=== PATIENT | male | born 1945 | race Caucasian/White ===

== ENCOUNTER 2016-06-16 09:11 | Inpatient (IN) | payer OTHER, MEDICARE ==
[~2016-06-16] VITALS: Ht 180.3 cm; Wt 103.0 kg
[2016-06-16] VITALS (12 sets, daily range): BP systolic 106–140; BP diastolic 52–74; PULSE 103–127; RESP 15–22; TEMP 98.9–102.8; O2SAT 95–100
[~2016-06-16 09:11] MED LIST: ASPI325T PO; GABA300C3 PO; GARL500C5 PO; GLUC1CAP14 PO; ICAPCAP; KETO2%T TOP; OMEGCAP19 PO; OMEP20TA39 PO; SENN1TAB11 PO; VITA10002 PO; VITA100T55 PO; ZOCO40TA PO; ZOVI200C24 PO
[2016-06-16] MEDS ORDERED: VANCOMYCIN INJ 1,000 MG in SODIUM CHLOR 0.9% 250 ML INJ 250 ML IV STA (09:24)
[2016-06-16] MEDS ORDERED: PIPERACIL-TAZO 4.5 GM PREMIX 100 ML IV STA (09:24)
[2016-06-16] MEDS ORDERED: SODIUM CHLOR 0.9% 1000 ML INJ 1,000 ML IV ONE ×2 (09:30→12:00)
--- NOTE | 2016-06-16 09:42 | PD ---
HPI Chief Complaint: Fever Time Seen by Provider: 09:20 Travel History International Travel<30 days: No Contact w/Intl Traveler<30days: No Traveled to known affect area: No History of Present Illness HPI 70-year-old male with history of bladder cancer currently undergoing chemotherapy, last 2 days ago, at [facility] under Dr. العلي here with complaint of fever. Patient states he felt fine throughout his chemotherapy. He awoke this morning at 3 AM with rigors and a temperature of 103.1. Patient denies any localizing symptoms. No nausea, vomiting, abdominal pain, sore throat, runny nose, cough, urinary symptoms. Patient took 1000 mg of Tylenol for fever and body aches and presented to the ED under instruction from his oncologist this morning. PFSH Past Medical History Blood Disorders: No Heart Rhythm Problems: Yes (extra heart beat ) Cancer: No Cardiovascular Problems: Yes High Cholesterol: Yes Chest Pain: No Congestive Heart Failure: No Diabetes: Yes (watch diet ) Diminished Hearing: No Endocrine: Yes Genitourinary: No Neurologic: Yes (tia 2003 ) Psychiatric: No Respiratory: No Thyroid Disease: No Past Surgical History Body Medical Devices: titanum in neck, 5 inplants in teeth Cardiac Surgery: Yes (tia times three) Tonsillectomy: Yes Other Surgery: Yes (CERVICAL FUSION C4-5-6, "QUAD HERNIA") Family History Family Hypercholesterolemia: Yes Social History Alcohol Use: No (QUIT 1990) Tobacco Use: No (QUIT 1999 ) Substance Use: No Allergies-Medications (Allergen,Severity, Reaction): Coded Allergies: Sulfa (Verified Allergy, Severe, RASH/HIVES/ITCHING, 06/16/16) Lortab (Verified Allergy, Mild, THROWS UP, 06/16/16) Oxycodone (Verified Allergy, Mild, THROWS UP, 06/16/16) Reported Meds & Prescriptions Reported Meds & Active Scripts Active Reported [Vit Code Mens] 2 Tab PO BID Curcumin (Turmeric (Curcuma Longa) (Bulk) 1 Pow Pow 2,706 Mg PO BID Cod Liver Oil 1,000 Mg Cap 1,000 Mg PO BID Ferrous Sulfate 325 Mg Tab 650 Mg PO DAILY Pyridoxine (Pyridoxine HCl) 100 Mg Tab 100 Mg PO HS Omeprazole 20 Mg Cap 20 Mg PO DAILY [place] 3-6-9 Complex ([place]ard 3 Fatty Acids-[place]ard 6 FA) 1 Cap Cap 2 Cap PO BID Glucosamine Chondroitin & [phone] mg (Zrqgsyrpacq-Xixtvzexqvq-Mj Cho) 1 Tab Tab 2 Tab PO BID Gabapentin 600 Mg Tab 1,200 Mg PO TID Aung [place] 450 Mg Cap 450 Mg PO HS [Vitamin B -12 [place]] 1,000 Mg PO DAILY Acyclovir 400 Mg Tab 400 Mg PO BID Review of Systems Except as stated in HPI: all other systems reviewed are Neg Physical Exam Narrative GENERAL: Well-appearing male in no acute distress SKIN: Warm and dry. HEAD: Normocephalic. EYES: No scleral icterus. No injection or drainage. ENT: Mucous membranes pink and moist. NECK: Supple CARDIOVASCULAR: Tachycardic with heart rate in the 100s, regular rhythm. No murmur appreciated. RESPIRATORY: No accessory muscle use. Clear to auscultation. Breath sounds equal bilaterally. GASTROINTESTINAL: Abdomen soft, non-tender, nondistended. No CVA tenderness MUSCULOSKELETAL: No edema. NEUROLOGICAL: Awake and alert. Normal gait. Normal speech. PSYCHIATRIC: Appropriate mood and affect; insight and judgment normal. Data Data Last Documented VS Vital Signs Date Time Temp Pulse Resp B/P Pulse Ox O2 Delivery O2 Flow Rate FiO2 06/16/16 10:00 99.6 115 15 110/63 96 Room Air Orders Electrocardiogram (06/16/16 09:24) Complete Blood Count With Diff (06/16/16 09:24) Comprehensive Metabolic Panel (06/16/16 09:24) Lactic Acid Sepsis Protocol (06/16/16 09:24) Lipase (06/16/16 09:24) Urinalysis - C+S If Indicated (06/16/16 09:24) Influenzae A/B Antigen (06/16/16 09:24) Blood Culture (06/16/16 09:24) Chest, Single Ap (06/16/16 09:24) Ecg Monitoring (06/16/16 09:24) Iv Access Insert/Monitor (06/16/16 09:24) Oximetry (06/16/16 09:24) Vancomycin Inj (Vancomycin Inj) (06/16/16 09:24) Piperacil-Tazo 4.5 Gm Premix (Zosyn 4.5 (06/16/16 09:24) Sodium Chlor 0.9% 1000 Ml Inj (Ns 1000 M (06/16/16 09:30) Urine Culture (06/16/16 09:40) Labs Laboratory Tests Test 06/16/16 09:40 White Blood Count 2.5 TH/MM3 Red Blood Count 3.51 MIL/MM3 Hemoglobin 9.8 GM/DL Hematocrit 28.7 % Mean Corpuscular Volume 81.8 FL Mean Corpuscular Hemoglobin 27.9 PG Mean Corpuscular Hemoglobin 34.1 % Concent Red Cell Distribution Width 18.7 % Platelet Count 442 TH/MM3 Mean Platelet Volume 6.9 FL Neutrophils (%) (Auto) 61.2 % Lymphocytes (%) (Auto) 21.8 % Monocytes (%) (Auto) 16.7 % Eosinophils (%) (Auto) 0.2 % Basophils (%) (Auto) 0.1 % Neutrophils # (Auto) 1.5 TH/MM3 Lymphocytes # (Auto) 0.5 TH/MM3 Monocytes # (Auto) 0.4 TH/MM3 Eosinophils # (Auto) 0.0 TH/MM3 Basophils # (Auto) 0.0 TH/MM3 CBC Comment DIFF FINAL Differential Comment Urine Color LIGHT-YELLOW Urine Turbidity HAZY Urine pH 6.0 Urine Specific [place] 1.010 Urine Protein 30 mg/dL Urine Glucose (UA) NEG mg/dL Urine Ketones NEG mg/dL Urine Occult Blood SMALL Urine Nitrite NEG Urine Bilirubin NEG Urine Urobilinogen LESS THAN 2.0 MG/DL Urine Leukocyte Esterase LARGE Urine RBC 14 /hpf Urine WBC 180 /hpf Urine Renal Epithelial Cells 1 /hpf Urine Bacteria FEW /hpf Microscopic Urinalysis Comment CATH-CULTURE IND Sodium Level 136 MEQ/L Potassium Level 3.9 MEQ/L Chloride Level 105 MEQ/L Carbon Dioxide Level 24.3 MEQ/L Anion Gap 7 MEQ/L Blood Urea Nitrogen 19 MG/DL Creatinine 1.29 MG/DL Estimat Glomerular Filtration 55 ML/MIN Rate Random Glucose 101 MG/DL Lactic Acid Level 1.5 mmol/L Calcium Level 8.1 MG/DL Total Bilirubin 0.3 MG/DL Aspartate Amino Transf 9 U/L (AST/SGOT) Alanine Aminotransferase 16 U/L (ALT/SGPT) Alkaline Phosphatase 68 U/L Total Protein 6.8 GM/DL Albumin 3.1 GM/DL Lipase 87 U/L [facility] Medical Decision Making Medical Screen Exam Complete: Yes Emergency Medical Condition: Yes Medical Record Reviewed: Yes Differential Diagnosis 70-year-old male with history of bladder cancer currently undergoing chemotherapy, last 2 days ago, here with body aches, temperature of 103.1 at home. Differential includes viral syndrome, bacteremia, influenza, pneumonia, UTI. Abdominal source less likely given patient's benign abdominal exam and lack of associated pain. Narrative Course Patient placed on monitor, 4 access and blood obtained. Twelve-lead EKG shows sinus tachycardia, rate [address] abnormalities, normal intervals. Patient was given 1 L normal saline bolus and empirically covered with vancomycin, Zosyn. CBC, CMP, lipase, lactate, urinalysis, influenza, blood cultures obtained and notable for WBC 2.5, hemoglobin 9.8. Urinalysis with large leukocyte Estrace, 180 white cells with bacteria. Portable chest x-ray obtained that by my read shows no acute abnormalities. I spoke with patient's oncologist, Dr. العلي, at [facility] who agrees with admission. Critical Care Narrative Aggregate critical care time was 35 minutes. Time to perform other separately billable procedures was not included in the critical care time. My time did not include minutes spent treating any other patients simultaneously or on activities that did not directly contribute to the patient's treatment. The services I provided to this patient were to treat and/or prevent clinically significant deterioration that could result in: Sepsis, cardiopulmonary decompensation, , disability I provided critical care services requiring my management, as noted below: Chart data review, documentation time, medication orders and management, vital sign assessments/reviewing monitor data, ordering and reviewing lab tests, ordering and interpreting/reviewing x-rays and diagnostic studies, care of the patient and discussion of the patient with the admitting physicians. Sepsis Criteria SIRS Criteria (2 or more): Temp > 100.9 or < 96.8, Heart rate over 90, WBC > 34748, < 4000 or > 10% bands Sepsis Criteria (SIRS+source): Infect source susp/known Criteria Outcome: Meets SIRS criteria, Meets sepsis criteria Diagnosis Primary Impression: Sepsis Qualified Code: A41.9 - Sepsis, due to unspecified organism Additional Impressions: Pyelonephritis Tachycardia Fever Qualified Code: R50.9 - Fever, unspecified fever cause Admitting Information Admitting Physician Requests: Admit Ashli Maxwell MD Jun 16, 2016 09:42
[2016-06-16 09:56] LABS: AUTOMATED NEUTROPHIL # 1.5 TH/MM3 (1.8-7.7); BASOPHIL % 0.1 % (0.0-2.0); EOSINOPHIL % 0.2 % (0.0-4.0); HEMATOCRIT 28.7 % (39.0-51.0); HEMO FLAGS DIFF FINAL; LYMPH % 21.8 % (9.0-44.0); LYMPHOCYTE # 0.5 TH/MM3 (1.0-4.8); MEAN CELL VOLUME 81.8 FL (80.0-100.0); MEAN CORPUSCULAR HEMOGLOBIN 27.9 PG (27.0-34.0); MEAN CORPUSCULAR HGB CONC 34.1 % (32.0-36.0); MONO % 16.7 % (0.0-8.0); NEUT % 61.2 % (16.0-70.0); PLATELET COUNT 442 TH/MM3 (150-450); RED BLOOD COUNT 3.51 MIL/MM3 (4.50-5.90); RED CELL DISTRIBUTION WIDTH 18.7 % (11.6-17.2); WHITE BLOOD COUNT 2.5 TH/MM3 (4.0-11.0)
--- NOTE | 2016-06-16 10:02 | RADRPT ---
EXAM DATE/TIME: 06/16/2016 09:26 [place] COMPARISON: No previous studies available for comparison. INDICATIONS : Fever. Shortness of breath. Pt. had chemotherapy 2 days ago. MEDICAL HISTORY : Carcinoma, bladder. SURGICAL HISTORY : Bladder surgery 2015. ENCOUNTER: Initial ACUITY: 1 day PAIN SCORE: 0/10 LOCATION: Bilateral chest FINDINGS: A single view of the chest demonstrates the lungs to be symmetrically aerated without evidence of mas s, infiltrate or effusion. The cardiomediastinal contours are unremarkable calcification in the aort ic knob.. Osseous structures are intact. Indwelling right subclavian venous catheter. Thin linear ar eas of density near left costophrenic angle which may represent scarring or minimal discoid atelectas is. CONCLUSION: No consolidative infiltrates. Indwelling right subclavian venous catheter. A few thin linear areas of density in the left costophrenic angle which may represent subsegmental discoid atelectasis or scarr ing Ricki Johnson MD on June 16, 2016 at 10:00 Board Certified Radiologist. This report was verified electronically.
[2016-06-16 10:08] LABS: BACTERIA, URINE FEW /hpf; BLOOD, URINE SMALL (NEG); GLUCOSE,URINE NEG (NEG); KETONE, URINE NEG (NEG); NITRITE,URINE NEG (NEG); RENAL EPITHELIAL CELLS 1 /hpf; URINE COLOR LIGHT-YELLOW (YELLW/STRAW)
[2016-06-16 10:12] LABS: ANION GAP 7 MEQ/L (5-15); AST (GOT) 9 U/L (15-37); BICARBONATE 24.3 MEQ/L (21.0-32.0); BLOOD UREA NITROGEN 19 MG/DL (7-18); CHLORIDE 105 MEQ/L (98-107); GLOMERULAR FILTRATION RATE 55 ML/MIN (>89); POTASSIUM 3.9 MEQ/L (3.5-5.1); SODIUM (NA) 136 MEQ/L (136-145)
[2016-06-16 10:17] LABS: ALKALINE PHOSPHATASE 68 U/L (45-117); ALT (GPT) 16 U/L (12-78); TOTAL BILIRUBIN ADULT 0.3 MG/DL (0.2-1.0)
[2016-06-16 10:25] LABS: COMMENT (UR) CATH-CULTURE IND; CULTURE IF INDICATED CATH CULTURE IND
[2016-06-16] MEDS ORDERED: VITAMIN B PO (10:39)
[2016-06-16] MEDS ORDERED: BOOSLIQ PO (10:39)
[2016-06-16] MEDS ORDERED: ACYC400T PO (10:39)
[2016-06-16] MEDS ORDERED: CURCPOW PO (10:50)
[2016-06-16] MEDS ORDERED: FERR325T PO (10:50)
[2016-06-16] MEDS ORDERED: CASC450C PO (10:50)
[2016-06-16] MEDS ORDERED: OMEGCAP19 PO (10:50)
[2016-06-16] MEDS ORDERED: [UNRECOGNIZED DRUG - OTHER] PO (10:50)
[2016-06-16] MEDS ORDERED: GABA600T PO (10:50)
[2016-06-16] MEDS ORDERED: PYRI100T4 PO (10:50)
[2016-06-16] MEDS ORDERED: CODCAP PO (10:50)
[2016-06-16] MEDS ORDERED: OMEP20CA2 PO (10:50)
[2016-06-16] MEDS ORDERED: GLUCTAB32 PO (10:50)
[2016-06-16] MEDS ORDERED: LORazepam 2 MG/ML VIAL IV PUSH ONE (11:30)
[2016-06-16] MEDS ORDERED: ACETAMINOPHEN 500 MG CPLT PO ONE (11:30)
[2016-06-16] MEDS ORDERED: ONDANSETRON HCL 4 MG/2 ML VIAL IVP PRN (13:00)
[2016-06-16] MEDS ORDERED: SODIUM CHLORIDE 0.9% FLUSH 5 ML FLUSH FLUSH PRN (13:00)
[2016-06-16] MEDS ORDERED: VANCOMYCIN INJ 1,000 MG in SODIUM CHLOR 0.9% 250 ML INJ 250 ML IV SCH (13:15)
[2016-06-16] MEDS ORDERED: Vancomycin Consult Pharmacy 1 EA OTHER SCH (13:15)
[2016-06-16] MEDS ORDERED: GABAPENTIN 400 MG CAP PO SCH (14:00)
[2016-06-16] MEDS: PIPERACIL-TAZO 4.5 GM PREMIX 100 ML IV SCH ×2 (14:23→16:34)
[2016-06-16] MEDS: GABAPENTIN 400 MG CAP PO SCH ×2 (14:23→20:23)
[2016-06-16] MEDS: ENOXAPARIN SODIUM 40 MG/0.4 ML SYRINGE SQ SCH (14:23)
[2016-06-16] MEDS: SODIUM CHLOR 0.9% 1000 ML INJ 1,000 ML IV SCH ×2 (14:23→22:58)
[2016-06-16] MEDS ORDERED: VANCOMYCIN INJ 1,600 MG in SODIUM CHLORID 0.9% 500 ML INJ 500 ML IV SCH (15:00)
--- NOTE | 2016-06-16 16:12 | EKG ---
Date Performed: 06/16/2016 Time Performed: 09:34:35 PTAGE: 70 years EKG: SINUS TACHYCARDIA NONSPECIFIC T-WAVE ABNORMALITY ABNORMAL RHYTHM ECG PREVIOUS TRACING : 06/18/2014 11.38 Compared to prior tracing no significant change DOCTOR: Mason Ortiz Interpretating Date/Time 06/16/2016 16:11:01
--- NOTE | 2016-06-16 19:45 | HHI.HP ---
[facility] Lacy Carr MD Admission Diagnosis sepsis, pyelonephritis Diagnoses: Chief Complaint: fevers/chills Travel History International Travel<30 Days: No Contact w/Intl Traveler <30 Da: No Traveled to Known Affected Are: No Sepsis Criteria SIRS Criteria (2 or more): Temp > 100.9 or < 96.8, Heart rate over 90, WBC > 68266, < 4000 or > 10% bands Sepsis Criteria (SIRS+source): Infect source susp/known Criteria Outcome: Meets sepsis criteria History of Present Illness 70 yo male with pmh as below presents with fevers and chills which started at 3 am last night. patient states that he was his usual self yesterday. patient is somewhat a poor historian. states he has gotten his 3rd round of chemotherapy , last 2 dyas ago at [facility] under Dr MICHELLE, comes here c/o fever. Patient c/o cough ehich started today, headache, denies nausea or vomiting. He also denies sore throat, runny nose or dysuria. Patient took ! gram of tylenol at home and then came to the hospital under instruction from his oncologist. Review of Systems Other As per HPI, other systems reviewed by me and negative. Past Family Social History Past Medical History Bladder cancer Extra heart beat TIA Past Surgical History Titanium in neck 5 implants in teeth Tonsillectomy Bladder resection Cervical Fusion C4-5-6 Reported Medications [Vit Code Mens] 2 Tab PO BID Curcumin (Turmeric (Curcuma Longa) (Bulk) 1 Pow Pow 2,706 Mg PO BID Cod Liver Oil 1,000 Mg Cap 1,000 Mg PO BID Ferrous Sulfate 325 Mg Tab 650 Mg PO DAILY Pyridoxine (Pyridoxine HCl) 100 Mg Tab 100 Mg PO HS Omeprazole 20 Mg Cap 20 Mg PO DAILY [place] 3-6-9 Complex ([place] 3 Fatty Acids-[place] 6 FA) 1 Cap Cap 2 Cap PO BID Glucosamine Chondroitin & [id number] mg (Uyfdmjvstwy-Mduhkhgrroj-Ov Cho) 1 Tab Tab 2 Tab PO BID Gabapentin 600 Mg Tab 1,200 Mg PO TID Aung [place] 450 Mg Cap 450 Mg PO HS [Vitamin B -12 [place]] 1,000 Mg PO DAILY Acyclovir 400 Mg Tab 400 Mg PO BID Allergies: Coded Allergies: Sulfa (Verified Allergy, Severe, RASH/HIVES/ITCHING, 06/16/16) Lortab (Verified Allergy, Mild, THROWS UP, 06/16/16) Oxycodone (Verified Allergy, Mild, THROWS UP, 06/16/16) Active Ordered Medications Current Medications Medications (Trade) Dose Ordered Sig/Travon Route Start Time Stop Time Status Last Admin (NS Flush) 2 ml UNSCH PRN FLUSH 06/16/16 13:00 (NS Flush) 2 ml BID FLUSH 06/16/16 21:00 (Tylenol) 650 mg Q4H PRN PO 06/16/16 13:00 (Zofran Inj) 4 mg Q6H PRN IVP 06/16/16 13:00 Enoxaparin Sodium 40 mg 40 mg Q24H SQ 06/16/16 14:00 06/16/16 14:23 (NS 1000 ml Inj) 1,000 ml @ 100 mls/hr Q10H IV 06/16/16 14:00 06/16/16 14:23 (Zovirax) 400 mg BID PO 06/16/16 21:00 (Ferrous Sulfate) 650 mg DAILY PO 06/17/16 09:00 (Vitamin B6) 100 mg HS PO 06/16/16 21:00 Pantoprazole Sodium 20 mg 20 mg DAILY PO 06/17/16 09:00 Piperacillin Sod/ Tazobactam Sod 100 ml @ 200 mls/hr Q8H IV 06/16/16 14:00 06/16/16 14:23 (Vancomycin Consult Pharmacy) 0 ml @ 0 mls/hr UNSCH OTHER 06/16/16 13:15 Gabapentin 800 mg 800 mg BID PO 06/16/16 14:00 06/16/16 14:23 (Vancomycin Inj/ NS 500 ml Inj) 516 ml @ 250 mls/hr Q24H IV 06/16/16 21:00 Miscellaneous Information SPECIFIC LAB TO BE ONCE ONCE XX 06/18/16 20:45 06/18/16 20:46 Family History Mother had breast cancer Brother had throat cancer Social History Former smoker quit in 03/2016 denies etoh intake Physical Exam Vital Signs Vital Signs Date Time Temp Pulse Resp B/P Pulse Ox O2 Delivery O2 Flow Rate FiO2 06/16/16 17:30 100.1 06/16/16 17:00 102.8 114 20 140/74 97 06/16/16 16:00 102.6 06/16/16 15:00 111 16 119/59 99 Room Air 06/16/16 14:00 103 21 117/57 98 Room Air 06/16/16 13:45 99.5 06/16/16 13:00 105 16 106/52 98 Room Air 06/16/16 11:00 100.0 127 16 117/58 98 Room Air 06/16/16 10:00 99.6 115 15 110/63 96 Room Air 06/16/16 09:35 115 16 97 Room Air 06/16/16 09:30 16 98 Room Air 06/16/16 09:30 16 100 Room Air 06/16/16 09:13 98.9 106 17 127/66 98 Physical Exam GENERAL: This is a well-nourished, well-developed patient, in no apparent distress. SKIN: No rashes, ecchymoses or lesions. Cool and dry. HEAD: Atraumatic. Normocephalic. No temporal or scalp tenderness. EYES: Pupils equal round and reactive. Extraocular motions intact. No scleral icterus. No injection or drainage. ENT: Nose without bleeding, purulent drainage or septal hematoma. Throat without erythema, tonsillar hypertrophy or exudate. Uvula midline. Airway patent. NECK: Trachea midline. No JVD or lymphadenopathy. Supple, nontender, no meningeal signs. CARDIOVASCULAR: Regular rate and rhythm without murmurs, gallops, or rubs. RESPIRATORY: Clear to auscultation. Breath sounds equal bilaterally. No wheezes , rales, or rhonchi. GASTROINTESTINAL: Abdomen soft, non-tender, nondistended. No hepato-splenomegaly , or palpable masses. No guarding. MUSCULOSKELETAL: Extremities without clubbing, cyanosis, or edema. No joint tenderness, effusion, or edema noted. No calf tenderness. Negative Homans sign bilaterally. NEUROLOGICAL: Awake and alert. Cranial nerves II through XII intact. Motor and sensory grossly within normal limits. Five out of 5 muscle strength in all muscle groups. Normal speech. Laboratory Laboratory Tests Test 06/16/16 09:40 White Blood Count 2.5 Red Blood Count 3.51 Hemoglobin 9.8 Hematocrit 28.7 Mean Corpuscular Volume 81.8 Mean Corpuscular Hemoglobin 27.9 Mean Corpuscular Hemoglobin 34.1 Concent Red Cell Distribution Width 18.7 Platelet Count 442 Mean Platelet Volume 6.9 Neutrophils (%) (Auto) 61.2 Lymphocytes (%) (Auto) 21.8 Monocytes (%) (Auto) 16.7 Eosinophils (%) (Auto) 0.2 Basophils (%) (Auto) 0.1 Neutrophils # (Auto) 1.5 Lymphocytes # (Auto) 0.5 Monocytes # (Auto) 0.4 Eosinophils # (Auto) 0.0 Basophils # (Auto) 0.0 CBC Comment DIFF FINAL Differential Comment Urine Color LIGHT-YELLOW Urine Turbidity HAZY Urine pH 6.0 Urine Specific [place] 1.010 Urine Protein 30 Urine Glucose (UA) NEG Urine Ketones NEG Urine Occult Blood SMALL Urine Nitrite NEG Urine Bilirubin NEG Urine Urobilinogen LESS THAN 2.0 Urine Leukocyte Esterase LARGE Urine RBC 14 Urine WBC 180 Urine Renal Epithelial Cells 1 Urine Bacteria FEW Microscopic Urinalysis Comment CATH-CULTURE IND Sodium Level 136 Potassium Level 3.9 Chloride Level 105 Carbon Dioxide Level 24.3 Anion Gap 7 Blood Urea Nitrogen 19 Creatinine 1.29 Estimat Glomerular Filtration 55 Rate Random Glucose 101 Lactic Acid Level 1.5 Calcium Level 8.1 Total Bilirubin 0.3 Aspartate Amino Transf 9 (AST/SGOT) Alanine Aminotransferase 16 (ALT/SGPT) Alkaline Phosphatase 68 Total Protein 6.8 Albumin 3.1 Lipase 87 Date/Time Procedure Status Source Growth 06/16/16 09:40 Urine Culture Received Urine Catheterized Urine Pending 06/16/16 09:40 Influenza Types A,B Antigen (MARKO) - Final Complete Nasal Washing NEGATIVE FOR FLU A AND B ANTIGEN.... 06/16/16 09:40 Aerobic Blood Culture Received Blood Peripheral Pending 06/16/16 09:40 Anaerobic Blood Culture Received Blood Peripheral Pending Result Diagram: 06/16/1640 06/16/1640 Imaging Last Impressions Chest X-Ray 06/16/1624 Signed Impressions: Service Date/Time: Thursday, June 16, 2016 09:26 - CONCLUSION: No consolidative infiltrates. Indwelling right subclavian venous catheter. A few thin linear areas of density in the left costophrenic angle which may represent subsegmental discoid atelectasis or scarring Ricki Johnson MD Reviewed by me Septic Shock Reassessment Heart: Regular rate and rhythm Lungs: Clear Skin: Warm Peripheral Pulses: Bounding Right Radial Bounding Left Radial Bounding Right Dorsalis Pedis Bounding Left Dorsalis Pedis Capillary Refill: <2 seconds Assessment and Plan Problem List: (1) Sepsis ICD Code: A41.9 Status: Acute (2) UTI (urinary tract infection) ICD Code: N39.0 Status: Acute (3) Diabetes mellitus type 2 ICD Code: 250.00 Status: Chronic (4) Fever ICD Code: R50.9 Status: Acute (5) Anemia ICD Code: D64.9 Status: Chronic (6) Tachycardia ICD Code: R00.0 Status: Acute (7) Leukopenia ICD Code: D72.819 Status: Acute (8) Bladder cancer ICD Code: C67.9 Status: Acute (9) Neutropenia ICD Code: D70.9 Status: Acute Assessment and Plan Admit to the medical floor CXR as above, UA (+), lactic acid 1.5 continue IV Zosyn and IV Vancomycin fu urine and blood cultures - obtain cultures from right port Place on accuchecks and SSI with insulin Novolog Leukopenia likely dueto chemotherapy - monitor cbc anemia likely chronic due to cancer Consult ID Patient meets criteria for mild neutropenia - monitor cbc w diff Discussed Condition With Patient, ED physician Physician Certification 2 Midnight Certification Type: Admission for Inpatient Services Order for Inpatient Services The services are ordered in accordance with Medicare regulations or non- Medicare payer requirements, as applicable. In the case of services not specified as inpatient-only, they are appropriately provided as inpatient services in accordance with the 2-midnight benchmark. Estimated LOS (days): 2 days is the estimated time the patient will need to remain in the hospital, assuming treatment plan goals are met and no additional complications. Post-Hospital Plan: Not yet determined Laz Magallanes MD Jun 16, 2016 19:45
[2016-06-16] MEDS: PYRIDOXINE HCL 50 MG TAB PO SCH (20:23)
[2016-06-16] MEDS: SODIUM CHLORIDE 0.9% FLUSH 5 ML FLUSH FLUSH SCH (20:26)
[2016-06-16] MEDS ORDERED: OMEGA FA PO SCH (21:00)
[2016-06-16] MEDS ORDERED: FATTY ACIDS OMEGA PO SCH (21:00)
[2016-06-16] MEDS: ACYCLOVIR 200 MG CAP PO SCH (22:57)
[2016-06-16] MEDS: VANCOMYCIN INJ 1,600 MG in SODIUM CHLORID 0.9% 500 ML INJ 500 ML IV SCH (22:58)
[2016-06-17] VITALS (10 sets, daily range): BP systolic 81–142; BP diastolic 43–74; PULSE 98–128; RESP 17–22; TEMP 97.8–102.7; O2SAT 93–98
[2016-06-17] MEDS: ACETAMINOPHEN 325 MG TAB PO PRN ×4 (00:14→22:02)
[2016-06-17] MEDS: PIPERACIL-TAZO 4.5 GM PREMIX 100 ML IV SCH ×3 (05:04→22:03)
[2016-06-17 06:18] LABS: ALT (GPT) 18 U/L (12-78); AST (GOT) 13 U/L (15-37); BICARBONATE 23.8 MEQ/L (21.0-32.0); BLOOD UREA NITROGEN 15 MG/DL (7-18); GLOMERULAR FILTRATION RATE 53 ML/MIN (>89)
[2016-06-17 06:40] LABS: AUTOMATED NEUTROPHIL # 2.5 TH/MM3 (1.8-7.7); BASOPHIL % 0.3 % (0.0-2.0); EOSINOPHIL % 0.4 % (0.0-4.0); HEMATOCRIT 30.4 % (39.0-51.0); HEMO FLAGS DIFF FINAL; LYMPH % 24.4 % (9.0-44.0); LYMPHOCYTE # 0.9 TH/MM3 (1.0-4.8); MEAN CELL VOLUME 82.7 FL (80.0-100.0); MEAN CORPUSCULAR HEMOGLOBIN 27.6 PG (27.0-34.0); MEAN CORPUSCULAR HGB CONC 33.4 % (32.0-36.0); MONO % 4.5 % (0.0-8.0); NEUT % 70.4 % (16.0-70.0); PLATELET COUNT 424 TH/MM3 (150-450); RED BLOOD COUNT 3.68 MIL/MM3 (4.50-5.90); RED CELL DISTRIBUTION WIDTH 18.9 % (11.6-17.2); WHITE BLOOD COUNT 3.6 TH/MM3 (4.0-11.0)
[2016-06-17] MEDS: SODIUM CHLOR 0.9% 1000 ML INJ 1,000 ML IV SCH ×3 (07:18→20:39)
[2016-06-17 07:33] LABS: ALKALINE PHOSPHATASE 66 U/L (45-117); ANION GAP 10 MEQ/L (5-15); CHLORIDE 106 MEQ/L (98-107); POTASSIUM 4.6 MEQ/L (3.5-5.1); SODIUM (NA) 140 MEQ/L (136-145); TOTAL BILIRUBIN ADULT 0.3 MG/DL (0.2-1.0)
[2016-06-17] MEDS: GABAPENTIN 400 MG CAP PO SCH ×2 (08:03→20:38)
[2016-06-17] MEDS: PANTOPRAZOLE SOD 20 MG DELAYED RELEASE TAB PO SCH (08:03)
[2016-06-17] MEDS: FERROUS SULFATE 325 MG (65 MG ELEMENTAL IRON) TAB PO SCH (08:03)
[2016-06-17] MEDS: SODIUM CHLORIDE 0.9% FLUSH 5 ML FLUSH FLUSH SCH ×2 (08:04→20:38)
[2016-06-17] MEDS: ACYCLOVIR 200 MG CAP PO SCH ×2 (08:25→20:38)
--- NOTE | 2016-06-17 10:00 | PD.CONS ---
History of Present Illness Service Infectious disease Consult Requested By Dr Pa Boyle Reason for Consult [place] patient with sepsis Primary Care Physician Lacy Carr MD Diagnoses: History of Present Illness Patient seen and examined. Records reviewed. Records from the other hospital was also reviewed. Patient is a 70-year-old male who was diagnosed to have bladder cancer last year , had undergone surgery in [place], presented to the hospital for further evaluation of acute onset of fever and chills. Patient had high-grade cancer and surgery was done in [facility], and he had a radical cystoprostatectomy, as well as creation of a neobladder. He had one positive lymph node. Postoperatively he developed a leak, and required repeat exploratory laparotomy, revision of the neobladder, and drainage of the abscess. He was treated for infection, and he had some cultures that grew Kimberly albicans, Achromobacter, and Pseudomonas. He was in the hospital apparently for about 35 days. He did well, and recovered from the infection, and he was being followed by the urologist. He was doing catheterization at least 3 times a day, and in the last 2 weeks they were instructed to do once a day catheterization. The volume usually is around 12-15 mL. Patient also has been started on chemotherapy about 2 weeks ago. He has an [id number], and it has been functioning well without any problem as far as infusion or blood draw. Patient voids without any problem. He denies any dysuria or hematuria. He has not had any abdominal pain, nausea, vomiting, or diarrhea. Her to admission he denies any respiratory complaint, but since admission his had a dry cough. Is any shortness of breath or any chest pain or any sore throat. Patient has been febrile since admission. His WBC is 2.3. Chest x-ray is normal. His urinalysis is showing some pyuria. Currently on Zosyn and vancomycin. Infectious disease consultation has been requested to evaluate the patient. Review of Systems Constitutional: COMPLAINS OF: Fever, Chills Eyes: DENIES: Eye pain Ears, nose, mouth, throat: DENIES: Nasal discharge, Oral lesions, Throat pain, Sinus Pain Respiratory: COMPLAINS OF: Cough, DENIES: Hemoptysis, Sputum production, Shortness of breath Cardiovascular: DENIES: Chest pain, Palpitations, Syncope Gastrointestinal: DENIES: Abdominal pain, Diarrhea, Nausea, Vomiting Genitourinary: DENIES: Hematuria, Dysuria Musculoskeletal: DENIES: Joint pain, Joint Swelling Integumentary: DENIES: Rash Hematologic/lymphatic: DENIES: Bruising Neurologic: DENIES: Headache Psychiatric: DENIES: Anxiety, Confusion Past Family Social History Allergies: Coded Allergies: Sulfa (Verified Allergy, Severe, RASH/HIVES/ITCHING, 06/16/16) Lortab (Verified Allergy, Mild, THROWS UP, 06/16/16) Oxycodone (Verified Allergy, Mild, THROWS UP, 06/16/16) Past Medical History Bladder cancer Extra heart beat TIA Neuropathy Past Surgical History Radical cystoprostatectomy, and creation of neobladder Repeat explor lap for urinary leak and had revision of his neobladder - treated for infection 5 implants in teeth Tonsillectomy Cervical Fusion C4-5-6 Active Ordered Medications Tylenol Acyclovir Lovenox Ferrous sulfate Neurontin Zofran Protonix Zosyn Pyridoxine Vancomycin Social History Former smoker quit in 03/2016 Denies ETOH Denies illicit drugs Physical Exam Vital Signs Vital Signs Date Time Temp Pulse Resp B/P Pulse Ox O2 Delivery O2 Flow Rate FiO2 06/17/16 08:00 101.2 125 17 81/43 96 06/17/16 06:22 101.6 06/17/16 05:39 102.7 06/17/16 04:00 97.8 104 20 142/69 96 06/17/16 00:00 102.6 128 22 115/56 93 06/16/16 20:00 99.9 125 22 133/65 95 06/16/16 17:30 100.1 06/16/16 17:00 102.8 114 20 140/74 97 06/16/16 16:00 102.6 06/16/16 15:00 111 16 119/59 99 Room Air 06/16/16 14:00 103 21 117/57 98 Room Air 06/16/16 13:45 99.5 06/16/16 13:00 105 16 106/52 98 Room Air 06/16/16 11:00 100.0 127 16 117/58 98 Room Air 06/16/16 10:00 99.6 115 15 110/63 96 Room Air Physical Exam GENERAL: This is a well-nourished, well-developed male, awake and alert, not toxic appearing, in no apparent distress. SKIN: Warm and dry, no generalized rash or ecchymosis. HEAD: Atraumatic. Normocephalic. No temporal or scalp tenderness. EYES: [place] conjunctivae, no petechia or hemorrhage. Pupils equal round and reactive. Extraocular movements full and intact. No scleral icterus. No injection or drainage. ENT: Nose without bleeding, or purulent drainage. Moist oral mucosa. Throat without erythema, or exudate. Uvula midline. Airway patent. NECK: Trachea midline. No JVD or lymphadenopathy. Supple, nontender, no meningeal signs. CARDIOVASCULAR: Regular rate and rhythm without murmurs, gallops, or rubs. [id number] in the right upper chest, currently accessed, no evidence of infection. RESPIRATORY: Clear to auscultation. Breath sounds equal bilaterally. No wheezes , rales, or rhonchi. GASTROINTESTINAL: Abdomen soft, non-tender, nondistended. Bowel sounds are present and normoactive. He has healed incisions. No hepato-splenomegaly, or palpable masses. No guarding. No rebound. MUSCULOSKELETAL: Extremities without clubbing, cyanosis, or edema. No joint tenderness, effusion, or edema noted. No calf tenderness. Negative Homans sign bilaterally. NEUROLOGICAL: Awake and alert. Cranial nerves II through XII intact. Motor and sensory grossly within normal limits. Five out of 5 muscle strength in all muscle groups. Normal speech. PSYCH: Normal affect, calm and cooperative LINE: Port without evidence of infection Laboratory Laboratory Tests Test 06/17/16 05:00 White Blood Count 3.6 Red Blood Count 3.68 Hemoglobin 10.1 Hematocrit 30.4 Mean Corpuscular Volume 82.7 Mean Corpuscular Hemoglobin 27.6 Mean Corpuscular Hemoglobin 33.4 Concent Red Cell Distribution Width 18.9 Platelet Count 424 Mean Platelet Volume 7.2 Neutrophils (%) (Auto) 70.4 Lymphocytes (%) (Auto) 24.4 Monocytes (%) (Auto) 4.5 Eosinophils (%) (Auto) 0.4 Basophils (%) (Auto) 0.3 Neutrophils # (Auto) 2.5 Lymphocytes # (Auto) 0.9 Monocytes # (Auto) 0.2 Eosinophils # (Auto) 0.0 Basophils # (Auto) 0.0 CBC Comment DIFF FINAL Differential Comment Sodium Level 140 Potassium Level 4.6 Chloride Level 106 Carbon Dioxide Level 23.8 Anion Gap 10 Blood Urea Nitrogen 15 Creatinine 1.34 Estimat Glomerular Filtration 53 Rate Random Glucose 106 Calcium Level 8.3 Total Bilirubin 0.3 Aspartate Amino Transf 13 (AST/SGOT) Alanine Aminotransferase 18 (ALT/SGPT) Alkaline Phosphatase 66 Total Protein 6.8 Albumin 3.0 Date/Time Procedure Status Source Growth 06/16/16 09:40 Urine Culture Received Urine Catheterized Urine Pending 06/16/16 09:40 Influenza Types A,B Antigen (MARKO) - Final Complete Nasal Washing NEGATIVE FOR FLU A AND B ANTIGEN.... 06/16/16 09:40 Aerobic Blood Culture Received Blood Peripheral Pending 06/16/16 09:40 Anaerobic Blood Culture Received Blood Peripheral Pending Result Diagram: 06/17/16 0500 06/17/16 0500 Imaging RADIOLOGY STUDIES/FILMS REVIEWED Chest X-Ray 06/16/1624 Signed Impressions: Service Date/Time: Thursday, June 16, 2016 09:26 - CONCLUSION: No consolidative infiltrates. Indwelling right subclavian venous catheter. A few thin linear areas of density in the left costophrenic angle which may represent subsegmental discoid atelectasis or scarring Ricki Johnson MD Assessment and Plan Assessment and Plan IMPRESSION Sepsis, source, likely due to source Hx bladder CA, S/P radical cystoprostatectomy and creation of neobladder, had post-op leak, and repeat exp lap Mild neutropenia, possibly due to his chemo Renal insufficiency RECOMMENDATION Renal US Follow C/S Monitor temps Continue Zosyn Continue Vanco Will likely need CT A/P - follow creatinine Monitor progress I will follow along with you Thank you for this consultation Alysia Dodson MD Jun 17, 2016 10:00
--- NOTE | 2016-06-17 11:56 | HHI.PR ---
Subjective Remarks Patient sitting in chair states had fevers and chills most of the night, just starting to improve denies cp/sob denies diarrhea had episode of hypotension with an sbp in the 80's systolic this am wbc and hemoglobin slightly increased creatinine slightly worsened Objective Vitals Vital Signs Date Time Temp Pulse Resp B/P Pulse Ox O2 Delivery O2 Flow Rate FiO2 06/17/16 11:25 98.2 98 18 114/74 98 06/17/16 08:00 101.2 125 17 81/43 96 06/17/16 06:22 101.6 06/17/16 05:39 102.7 06/17/16 04:00 97.8 104 20 142/69 96 06/17/16 00:00 102.6 128 22 115/56 93 06/16/16 20:00 99.9 125 22 133/65 95 06/16/16 17:30 100.1 06/16/16 17:00 102.8 114 20 140/74 97 06/16/16 16:00 102.6 06/16/16 15:00 111 16 119/59 99 Room Air 06/16/16 14:00 103 21 117/57 98 Room Air 06/16/16 13:45 99.5 06/16/16 13:00 105 16 106/52 98 Room Air I/O 06/16/16 06/16/16 06/16/16 06/17/16 06/17/16 06/17/16 07:00 15:00 23:00 07:00 15:00 23:00 Intake Total 320 ml 240 ml 120 ml Output Total 1000 ml 300 ml Balance -680 ml -60 ml 120 ml Intake Oral 320 ml 240 ml 120 ml Output Urine Total 1000 ml 300 ml # Voids 1 # Bowel Movements 0 0 Result Diagram: 06/17/16 0500 06/17/16 0500 Imaging Last Impressions Chest X-Ray 06/16/16 0924 Signed Impressions: Service Date/Time: Thursday, June 16, 2016 09:26 - CONCLUSION: No consolidative infiltrates. Indwelling right subclavian venous catheter. A few thin linear areas of density in the left costophrenic angle which may represent subsegmental discoid atelectasis or scarring Ricki Johnson MD Objective Remarks GENERAL: This is a well-nourished, well-developed patient, in no apparent distress. SKIN: No rashes, ecchymoses or lesions. Cool and dry. HEAD: Atraumatic. Normocephalic. No temporal or scalp tenderness. EYES: Pupils equal round and reactive. Extraocular motions intact. No scleral icterus. No injection or drainage. ENT: Nose without bleeding, purulent drainage or septal hematoma. Throat without erythema, tonsillar hypertrophy or exudate. Uvula midline. Airway patent. NECK: Trachea midline. No JVD or lymphadenopathy. Supple, nontender, no meningeal signs. CARDIOVASCULAR: Regular rate and rhythm without murmurs, gallops, or rubs. RESPIRATORY: Clear to auscultation. Breath sounds equal bilaterally. No wheezes , rales, or rhonchi. GASTROINTESTINAL: Abdomen soft, non-tender, nondistended. No hepato-splenomegaly , or palpable masses. No guarding. MUSCULOSKELETAL: Extremities without clubbing, cyanosis, or edema. No joint tenderness, effusion, or edema noted. No calf tenderness. Negative Homans sign bilaterally. NEUROLOGICAL: Awake and alert. Cranial nerves II through XII intact. Motor and sensory grossly within normal limits. Five out of 5 muscle strength in all muscle groups. Normal speech. Medications and IVs Current Medications Medications (Trade) Dose Ordered Sig/Travon Route Start Time Stop Time Status Last Admin (NS Flush) 2 ml UNSCH PRN FLUSH 06/16/16 13:00 (NS Flush) 2 ml BID FLUSH 06/16/16 21:00 06/16/16 20:26 (Tylenol) 650 mg Q4H PRN PO 06/16/16 13:00 06/17/16 13:18 (Zofran Inj) 4 mg Q6H PRN IVP 06/16/16 13:00 Enoxaparin Sodium 40 mg 40 mg Q24H SQ 06/16/16 14:00 06/17/16 13:18 (NS 1000 ml Inj) 1,000 ml @ 150 mls/hr Q6H40M IV 06/16/16 14:00 06/17/16 13:22 (Zovirax) 400 mg BID PO 06/16/16 21:00 06/17/16 08:25 (Ferrous Sulfate) 650 mg DAILY PO 06/17/16 09:00 06/17/16 08:03 (Vitamin B6) 100 mg HS PO 06/16/16 21:00 06/16/16 20:23 Pantoprazole Sodium 20 mg 20 mg DAILY PO 06/17/16 09:00 06/17/16 08:03 Piperacillin Sod/ Tazobactam Sod 100 ml @ 200 mls/hr Q8H IV 06/16/16 14:00 06/17/16 13:18 (Vancomycin Consult Pharmacy) 0 ml @ 0 mls/hr UNSCH OTHER 06/16/16 13:15 Gabapentin 800 mg 800 mg BID PO 06/16/16 14:00 06/17/16 08:03 (Vancomycin Inj/ NS 500 ml Inj) 516 ml @ 250 mls/hr Q24H IV 06/16/16 21:00 06/16/16 22:58 Miscellaneous Information SPECIFIC LAB TO BE [facility]... ONCE ONCE XX 06/18/16 20:45 06/18/16 20:46 (Robitussin Dm 200-20 Mg/10 ml Liq) 10 ml Q4H PRN PO 06/17/16 12:00 06/17/16 13:18 (Xylocaine 2% Jelly) 1 applic UNSCH PRN TOPICAL 06/17/16 13:00 Urinary Catheter: No Vascular Central Line Catheter: No A/P Problem List: (1) Sepsis ICD Code: A41.9 Status: Acute Plan: Patient admitted to the medical floor sepsis likely due to UTI/pyelonephritis check renal us, will likely need CT abdomen and pelvis Continue IV Vancomycin and Zosyn Appreciate ID consultation Continue IV fluids Blood cultures negative x1 (2) UTI (urinary tract infection) ICD Code: N39.0 Status: Acute Plan: Continue IV antibiotics as per ID recommendation fu urine cultures. check renal us (3) Fever ICD Code: R50.9 Status: Acute Plan: Continue Tylenol prn (4) Anemia ICD Code: D64.9 Status: Chronic Plan: no signs of active bleeding, likely chronic, continue to monitor cbc. (5) Tachycardia ICD Code: R00.0 Status: Acute Plan: Due to sepsis, Continue IV fluids, telemetry (6) Leukopenia ICD Code: D72.819 Status: Acute Plan: due to chemotherapy, improving, monitor counts (7) Bladder cancer ICD Code: C67.9 Status: Acute Plan: sp chemotherapy. (8) Neutropenia ICD Code: D70.9 Status: Acute Plan: Resolved, neutrophil count more than 2500 (9) DELORES (acute kidney injury) ICD Code: N17.9 Status: Acute Plan: Creatinine increased from 1.2 to 1.3, likely prerenal azotemia from sepsis and hemodynamic instability with episode of hypotension. I will increase the rate of IV fluids to 150 ml/hr. Assessment and Plan Gi prophylaxis: PPI DVT prophylaxis: SCD's, Lovenox SQ. Discharge Planning Continue to monitor in the medical floor. Problem Qualifiers (1) Fever: Qualified Code: R50.9 - Fever, unspecified fever cause Laz Magallanes MD Jun 17, 2016 11:56
[2016-06-17] MEDS ORDERED: LIDOCAINE 2% JELLY 30 ML TUBE TOPICAL PRN (13:00)
[2016-06-17] MEDS: ENOXAPARIN SODIUM 40 MG/0.4 ML SYRINGE SQ SCH (13:18)
[2016-06-17] MEDS: guaiFENesin/DEXTROMETHORPHAN 200 MG/20 MG/10 ML CUP PO PRN (13:18)
--- NOTE | 2016-06-17 19:09 | RADRPT ---
EXAM DATE/TIME: 06/17/2016 16:38 [facility] COMPARISON: No previous studies available for comparison. INDICATIONS : Evaluate for UTI. Obstruction. MEDICAL HISTORY : Hypercholesterolemia. Carcinoma, bladder. Renal calculi. SURGICAL HISTORY : Tonsillectomy. Hernia. Cervical fusion. Digenertive dics. Left rotator cuff repair. Left knee. Bl adder reconstruction. ENCOUNTER: Initial ACUITY: 1 day PAIN SCORE: 0/10 LOCATION: Bilateral flank MEASUREMENTS: RIGHT KIDNEY: 13.0 x 6.4 x 7.2 cm LEFT KIDNEY: 9.7 x 6.1 x 5.7 cm FINDINGS: RIGHT KIDNEY: There is mild prominence of the collecting system of the right kidney, but renal sinus fat is still d iscernible. Renal cortical thickness is normal. LEFT KIDNEY: No evidence of hydronephrosis. Renal cortical thickness is thicker and lower pole in the upper pole, but no focal mass or cyst seen. BLADDER: Urinary bladder is nondistended. There is some free fluid seen in the pelvis. CONCLUSION: 1. Mild dilation of the collecting system of the right kidney. 2. Small amount of free fluid in the pelvis. Hitesh Torres MD on June 17, 2016 at 19:06 Board Certified Radiologist. This report was verified electronically.
[2016-06-17] MEDS: PYRIDOXINE HCL 50 MG TAB PO SCH (20:38)
[2016-06-17] MEDS: VANCOMYCIN INJ 1,600 MG in SODIUM CHLORID 0.9% 500 ML INJ 500 ML IV SCH (20:38)
[2016-06-18] VITALS (7 sets, daily range): BP systolic 107–132; BP diastolic 59–76; PULSE 68–109; RESP 17–21; TEMP 97.1–100.6; O2SAT 96–99
[2016-06-18] MEDS: SODIUM CHLOR 0.9% 1000 ML INJ 1,000 ML IV SCH ×4 (05:13→20:46)
[2016-06-18] MEDS: PIPERACIL-TAZO 4.5 GM PREMIX 100 ML IV SCH ×3 (05:14→18:24)
[2016-06-18 06:10] LABS: ALT (GPT) 15 U/L (12-78); ANION GAP 8 MEQ/L (5-15); AST (GOT) 15 U/L (15-37); BICARBONATE 25.7 MEQ/L (21.0-32.0); BLOOD UREA NITROGEN 12 MG/DL (7-18); CHLORIDE 107 MEQ/L (98-107); GLOMERULAR FILTRATION RATE 60 ML/MIN (>89); MAGNESIUM 1.8 MG/DL (1.5-2.5); POTASSIUM 3.4 MEQ/L (3.5-5.1); SODIUM (NA) 141 MEQ/L (136-145)
[2016-06-18 06:13] LABS: ALKALINE PHOSPHATASE 61 U/L (45-117); TOTAL BILIRUBIN ADULT 0.3 MG/DL (0.2-1.0)
[2016-06-18 06:32] LABS: HEMATOCRIT 26.3 % (39.0-51.0); MEAN CORPUSCULAR HEMOGLOBIN 27.6 PG (27.0-34.0); MEAN CORPUSCULAR HGB CONC 33.7 % (32.0-36.0); PLATELET COUNT 348 TH/MM3 (150-450); RED BLOOD COUNT 3.21 MIL/MM3 (4.50-5.90); RED CELL DISTRIBUTION WIDTH 19.4 % (11.6-17.2); WHITE BLOOD COUNT 2.5 TH/MM3 (4.0-11.0)
[2016-06-18 06:55] LABS: HEMO FLAGS AUTO DIFF
[2016-06-18] MEDS ORDERED: POTASSIUM CHLORIDE 20 MEQ CONTROLLED RELEASE TAB PO ONE (07:45)
--- NOTE | 2016-06-18 07:52 | HHI.PR ---
Subjective Remarks resting comfortably with no distress. still with on and off fever. has occasional cough. had a few loose BM's over night. Objective Vitals Vital Signs Date Time Temp Pulse Resp B/P Pulse Ox O2 Delivery O2 Flow Rate FiO2 06/18/16 07:34 98.4 94 19 129/71 99 06/18/16 04:00 97.2 94 21 132/69 96 06/18/16 01:00 97.1 06/18/16 00:00 100.6 109 21 114/76 96 06/17/16 22:07 101.6 06/17/16 20:04 98 06/17/16 20:00 99.6 108 20 131/73 95 06/17/16 16:00 99.2 123 18 114/59 95 06/17/16 11:25 98.2 98 18 114/74 98 06/17/16 08:00 101.2 125 17 81/43 96 I/O 06/17/16 06/17/16 06/17/16 06/18/16 06/18/16 06/18/16 07:00 15:00 23:00 07:00 15:00 23:00 Intake Total 240 ml 1600 ml 843 ml 1439 ml 120 ml Output Total 300 ml 1200 ml Balance -60 ml 400 ml 843 ml 1439 ml 120 ml Intake Oral 240 ml 600 ml 240 ml 360 ml 120 ml IV Total 1000 ml 603 ml 1079 ml Output Urine Total 300 ml 1200 ml # Voids 1 3 # Bowel Movements 0 0 0 0 Result Diagram: 06/18/16 0515 06/18/16 0515 Imaging Last Impressions Renal Ultrasound 06/17/16 0000 Signed Impressions: Service Date/Time: Friday, June 17, 2016 16:38 - CONCLUSION: 1. Mild dilation of the collecting system of the right kidney. 2. Small amount of free fluid in the pelvis. Hitesh Torres MD Chest X-Ray 06/16/16 0924 Signed Impressions: Service Date/Time: Thursday, June 16, 2016 09:26 - CONCLUSION: No consolidative infiltrates. Indwelling right subclavian venous catheter. A few thin linear areas of density in the left costophrenic angle which may represent subsegmental discoid atelectasis or scarring Ricki Johnson MD Objective Remarks GENERAL: This is a well-nourished, well-developed patient, in no apparent distress. CARDIOVASCULAR: Regular rate and regular rhythm without murmurs, gallops, or rubs. RESPIRATORY: Clear to auscultation. Breath sounds equal bilaterally. No wheezes , rales, or rhonchi. GASTROINTESTINAL: Abdomen soft, non-tender, nondistended. Normal, active bowel sounds MUSCULOSKELETAL: Extremities without clubbing, cyanosis, or edema. NEURO: Alert & Oriented x4 to person, place, time, situation. Moves all ext x4 Procedures none Medications and IVs Current Medications Vancomycin HCl 1000 mg/Sodium Chloride 250 ml @ 250 mls/hr ONCE STAT IV Last administered on 06/16/16 09:52; Start 06/16/16 at 09:24; Stop 06/16/16 at 10:23 ; Status DC Piperacillin Sod/ Tazobactam Sod 100 ml @ 200 mls/hr ONCE STAT IV Last administered on 06/16/16 09:52; Start 06/16/16 at 09:24; Stop 06/16/16 at 09:53 ; Status DC Sodium Chloride (NS 1000 ml Inj) 1,000 ml @ 999 mls/hr BOLUS ONCE IV Last administered on 06/16/16 09:52; Start 06/16/16 at 09:30; Stop 06/16/16 at 10:30 ; Status DC Acetaminophen (Tylenol) 1,000 mg ONCE ONCE PO Last administered on 06/16/16 11:30; Start 06/16/16 at 11:30; Stop 06/16/16 at 11:42; Status DC Lorazepam 1 mg 1 mg ONCE ONCE IV PUSH Last administered on 06/16/16 11:32; Start 06/16/16 at 11:30; Stop 06/16/16 at 11:42; Status DC Sodium Chloride (NS 1000 ml Inj) 1,000 ml @ 999 mls/hr BOLUS ONCE IV Last administered on 06/16/16 11:54; Start 06/16/16 at 12:00; Stop 06/16/16 at 13:00 ; Status DC IV Flush (NS Flush) 2 ml UNSCH PRN FLUSH FLUSH AFTER USING IV ACCESS; Start at 13:00 IV Flush (NS Flush) 2 ml BID FLUSH Last administered on 06/16/16 20:26; Start 06/16/16 at 21:00 Acetaminophen (Tylenol) 650 mg Q4H PRN PO TEMP > 100.4 Last administered on 22:02; Start 06/16/16 at 13:00 Ondansetron HCl (Zofran Inj) 4 mg Q6H PRN IVP NAUSEA OR VOMITING; Start at 13:00 Enoxaparin Sodium 40 mg 40 mg Q24H SQ Last administered on 06/17/16 13:18; Start 06/16/16 at 14:00 Sodium Chloride (NS 1000 ml Inj) 1,000 ml @ 150 mls/hr Q6H40M IV Last administered on 06/18/16 05:13; Start 06/16/16 at 14:00 Acyclovir (Zovirax) 400 mg BID PO Last administered on 06/17/16 20:38; Start 06/16/16 at 21:00 Ferrous Sulfate (Ferrous Sulfate) 650 mg DAILY PO Last administered on 08:03; Start 06/17/16 at 09:00 Gabapentin (Neurontin) 1,200 mg TID PO ; Start 06/16/16 at 14:00; Status Cancel Pyridoxine HCl (Vitamin B6) 100 mg HS PO Last administered on 06/17/16 20:38; Start 06/16/16 at 21:00 Non-Formulary Medication 2 cap BID PO ; Start 06/16/16 at 21:00; Status UNV Pantoprazole Sodium 20 mg 20 mg DAILY PO Last administered on 06/17/16 08:03; Start 06/17/16 at 09:00 Piperacillin Sod/ Tazobactam Sod 100 ml @ 200 mls/hr Q8H IV Last administered on 06/18/16 05:14; Start 06/16/16 at 14:00 Vancomycin HCl 1000 mg/Sodium Chloride 250 ml @ 250 mls/hr Q24H IV ; Start at 13:15; Status UNV Pharmacy Profile Note (Vancomycin Consult Pharmacy) 0 ml @ 0 mls/hr UNSCH OTHER ; Start 06/16/16 at 13:15 Gabapentin 800 mg 800 mg BID PO Last administered on 06/17/16 20:38; Start at 14:00 Vancomycin HCl 1600 mg/Sodium Chloride 516 ml @ 250 mls/hr Q24H IV ; Start at 15:00; Stop 06/16/16 at 15:00; Status DC Vancomycin HCl/ Sodium Chloride (Vancomycin Inj/ NS 500 ml Inj) 516 ml @ 250 mls/hr Q24H IV Last administered on 06/17/16 20:38; Start 06/16/16 at 21:00 Miscellaneous Information SPECIFIC LAB TO BE [facility]... ONCE ONCE XX ; Start at 20:45; Stop 06/18/16 at 20:46 Guaifenesin/ Dextromethorphan (Robitussin Dm 200-20 Mg/10 ml Liq) 10 ml Q4H PRN PO COUGH Last administered on 06/17/16 13:18; Start 06/17/16 at 12:00 Lidocaine HCl (Xylocaine 2% Jelly) 1 applic UNSCH PRN TOPICAL STRAIGHT CATH; Start 06/17/16 at 13:00 A/P Assessment and Plan A/P -sepsis likely due to UTI/pyelonephritis Continue IV Vancomycin and Zosyn Appreciate ID consultation Continue IV fluids follow the Blood cultures -anemia no signs of active bleeding, likely chronic, continue to monitor cbc. - Leukopenia due to chemotherapy, improving, monitor counts -diarrhea- check the stool for c-diff. Bladder cancer sp chemotherapy. Carolyne Donald MD Jun 18, 2016 07:52
[2016-06-18] MEDS: SODIUM CHLORIDE 0.9% FLUSH 5 ML FLUSH FLUSH SCH ×2 (08:17→20:46)
[2016-06-18] MEDS: GABAPENTIN 400 MG CAP PO SCH ×2 (08:18→20:43)
[2016-06-18] MEDS: FERROUS SULFATE 325 MG (65 MG ELEMENTAL IRON) TAB PO SCH (08:18)
[2016-06-18] MEDS: ACYCLOVIR 200 MG CAP PO SCH ×2 (08:18→20:43)
[2016-06-18] MEDS: PANTOPRAZOLE SOD 20 MG DELAYED RELEASE TAB PO SCH (08:18)
[2016-06-18 08:49] LABS: BANDS 15 % (0-6); EOSINOPHILS 3 % (0-4); NEUTROPHIL # MANUAL DIFF 1.6 TH/MM3 (1.8-7.7); PLATELET ESTIMATE SMEAR NORMAL (NORMAL); PLATELET MORPHOLOGY NORMAL (NORMAL); POLYS (SEG NEUTROPHILS) 48 % (16-70); SCAN/DIFF FINAL DIFF MANUAL; WBC DIFF SAMPLE 100
[2016-06-18] MEDS: guaiFENesin/DEXTROMETHORPHAN 200 MG/20 MG/10 ML CUP PO PRN (09:38)
[2016-06-18] MEDS: ACETAMINOPHEN 325 MG TAB PO PRN ×2 (10:08→13:50)
--- NOTE | 2016-06-18 12:32 | HHI.IDPN ---
Subjective Subjective Remarks Notes reviewed Fevers last night Renal US - ?hydro R kidney UC pending BC pending Creatinine better WBC 2.5 Antibiotics Zosyn Vancomycin Lines Port Past Medical History Bladder cancer Extra heart beat TIA Neuropathy Past Surgical History Radical cystoprostatectomy, and creation of neobladder Repeat explor lap for urinary leak and had revision of his neobladder - treated for infection 5 implants in teeth Tonsillectomy Cervical Fusion C4-5-6 Allergies: Coded Allergies: Sulfa (Verified Allergy, Severe, RASH/HIVES/ITCHING, 06/16/16) Lortab (Verified Allergy, Mild, THROWS UP, 06/16/16) Oxycodone (Verified Allergy, Mild, THROWS UP, 06/16/16) Objective . Vital Signs Date Time Temp Pulse Resp B/P Pulse Ox O2 Delivery O2 Flow Rate FiO2 06/18/16 11:38 98.8 85 17 121/65 98 06/18/16 07:34 98.4 94 19 129/71 99 06/18/16 04:00 97.2 94 21 132/69 96 06/18/16 01:00 97.1 06/18/16 00:00 100.6 109 21 114/76 96 06/17/16 22:07 101.6 06/17/16 20:04 98 06/17/16 20:00 99.6 108 20 131/73 95 06/17/16 16:00 99.2 123 18 114/59 95 06/17/16 06/17/16 06/18/16 15:00 23:00 07:00 Intake Total 1600 ml 843 ml 1439 ml Output Total 1200 ml Balance 400 ml 843 ml 1439 ml Intake Oral 600 ml 240 ml 360 ml IV Total 1000 ml 603 ml 1079 ml Output Urine Total 1200 ml # Voids 1 3 # Bowel Movements 0 0 0 . Laboratory Tests Test 06/17/16 06/18/16 05:00 05:15 White Blood Count 3.6 TH/MM3 2.5 TH/MM3 Red Blood Count 3.68 MIL/MM3 3.21 MIL/MM3 Hemoglobin 10.1 GM/DL 8.9 GM/DL Hematocrit 30.4 % 26.3 % Mean Corpuscular Volume 82.7 FL 82.0 FL Mean Corpuscular Hemoglobin 27.6 PG 27.6 PG Mean Corpuscular Hemoglobin 33.4 % 33.7 % Concent Red Cell Distribution Width 18.9 % 19.4 % Platelet Count 424 TH/MM3 348 TH/MM3 Mean Platelet Volume 7.2 FL 7.2 FL Neutrophils (%) (Auto) 70.4 % % Lymphocytes (%) (Auto) 24.4 % % Monocytes (%) (Auto) 4.5 % % Eosinophils (%) (Auto) 0.4 % % Basophils (%) (Auto) 0.3 % % Neutrophils # (Auto) 2.5 TH/MM3 TH/MM3 Lymphocytes # (Auto) 0.9 TH/MM3 TH/MM3 Monocytes # (Auto) 0.2 TH/MM3 TH/MM3 Eosinophils # (Auto) 0.0 TH/MM3 TH/MM3 Basophils # (Auto) 0.0 TH/MM3 TH/MM3 CBC Comment DIFF FINAL AUTO DIFF Differential Comment FINAL DIFF MANUAL Differential Total Cells 100 Counted Neutrophils % (Manual) 48 % Band Neutrophils % 15 % Lymphocytes % 25 % Monocytes % 9 % Eosinophils % 3 % Neutrophils # (Manual) 1.6 TH/MM3 Platelet Estimate NORMAL Platelet Morphology Comment NORMAL Laboratory Tests Test 06/17/16 06/17/16 06/18/16 05:00 22:19 05:15 Sodium Level 140 MEQ/L 141 MEQ/L Potassium Level 4.6 MEQ/L 3.4 MEQ/L Chloride Level 106 MEQ/L 107 MEQ/L Carbon Dioxide Level 23.8 MEQ/L 25.7 MEQ/L Anion Gap 10 MEQ/L 8 MEQ/L Blood Urea Nitrogen 15 MG/DL 12 MG/DL Creatinine 1.34 MG/DL 1.20 MG/DL Estimat Glomerular Filtration 53 ML/MIN 60 ML/MIN Rate Random Glucose 106 MG/DL 111 MG/DL Calcium Level 8.3 MG/DL 8.1 MG/DL Total Bilirubin 0.3 MG/DL 0.3 MG/DL Aspartate Amino Transf 13 U/L 15 U/L (AST/SGOT) Alanine Aminotransferase 18 U/L 15 U/L (ALT/SGPT) Alkaline Phosphatase 66 U/L 61 U/L Total Protein 6.8 GM/DL 6.2 GM/DL Albumin 3.0 GM/DL 2.7 GM/DL Lactic Acid Level 0.9 mmol/L Phosphorus Level 2.7 MG/DL Magnesium Level 1.8 MG/DL Microbiology Date/Time Procedure Status Source Growth 06/16/16 01:45 Aerobic Blood Culture - Preliminary Resulted Blood Line NO GROWTH IN 1 DAY 06/16/16 01:45 Anaerobic Blood Culture - Preliminary Resulted Blood Line NO GROWTH IN 1 DAY 06/16/16 09:35 Aerobic Blood Culture - Preliminary Resulted Blood Peripheral NO GROWTH IN 2 DAYS 06/16/16 09:35 Anaerobic Blood Culture - Preliminary Resulted Blood Peripheral NO GROWTH IN 2 DAYS 06/16/16 09:40 Aerobic Blood Culture - Preliminary Resulted Blood Peripheral NO GROWTH IN 2 DAYS 06/16/16 09:40 Anaerobic Blood Culture - Preliminary Resulted Blood Peripheral NO GROWTH IN 2 DAYS 06/16/16 09:40 Influenza Types A,B Antigen (MARKO) - Final Complete Nasal Washing NEGATIVE FOR FLU A AND B ANTIGEN.... 06/16/16 09:40 Urine Culture - Preliminary Resulted Urine Catheterized Urine IMMATURE GROWTH - REINCUBATE Imaging Renal Ultrasound 06/17/16 0000 Signed Impressions: Service Date/Time: Friday, June 17, 2016 16:38 - CONCLUSION: 1. Mild dilation of the collecting system of the right kidney. 2. Small amount of free fluid in the pelvis. Hitesh Torres MD Chest X-Ray 06/16/16923 Signed Impressions: Service Date/Time: Thursday, June 16, 2016 09:26 - CONCLUSION: No consolidative infiltrates. Indwelling right subclavian venous catheter. A few thin linear areas of density in the left costophrenic angle which may represent subsegmental discoid atelectasis or scarring Ricki Johnson MD Physical Exam GENERAL: awake and alert, not toxic appearing, in no apparent distress. SKIN: Warm and dry, no generalized rash HEENT: [employer] conjunctivae, no petechia or hemorrhage. No scleral icterus. No injection or drainage. Moist oral mucosa. NECK: Trachea midline. No JVD or lymphadenopathy. Supple, nontender, no meningeal signs. CARDIOVASCULAR: Regular rate and rhythm without murmurs, gallops, or rubs. [id number] in the right upper chest, currently accessed, no evidence of infection. RESPIRATORY: Clear to auscultation. Breath sounds equal bilaterally. No wheezes , rales, or rhonchi. GASTROINTESTINAL: Abdomen soft, non-tender, nondistended. Bowel sounds are present and normoactive. He has healed incisions. No hepato-splenomegaly, or palpable masses. No guarding. No rebound. MUSCULOSKELETAL: Extremities without clubbing, cyanosis, or edema. No calf tenderness. NEUROLOGICAL: Grossly non-focal PSYCH: Normal affect, calm and cooperative LINE: Port without evidence of infection Assessment & Plan Remarks IMPRESSION Sepsis, source, likely due to source Hx bladder CA, S/P radical cystoprostatectomy and creation of neobladder, had post-op leak, and repeat exp lap Mild neutropenia, possibly due to his chemo Renal insufficiency, better RECOMMENDATION CT A/P to evaluate R kidney Follow C/S Monitor temps Continue Zosyn Continue Vanco Urology consult Monitor progress EXplained plan to patient and Alysia Dodson MD Jun 18, 2016 12:32
[2016-06-18] MEDS ORDERED: DIATRIZOATE MEGLUM/DIATRIZOATE SOD 9 ML CUP PO ONE (13:00)
[2016-06-18] MEDS: ENOXAPARIN SODIUM 40 MG/0.4 ML SYRINGE SQ SCH (13:36)
--- NOTE | 2016-06-18 14:06 | MB ---
cc: LANCE STEWART DATE OF CONSULTATION: 06/18/2016 REASON FOR CONSULTATION: HISTORY OF PRESENT ILLNESS: Mr. Sanchez is a pleasant 70-year-old male with history of muscle invasive bladder cancer who underwent a cystoprostatectomy on January 26, 2016 up in [place]. At the time he was found to have one lymph node positive. He did not receive neoadjuvant chemotherapy at the time. His hospital course was uncomplicated by a ashley-bladder perforation requiring re-exploration and drainage of abscess. He remained in the hospital for approximately five weeks and was started on clean intermittent catheterization three times a day. According to his , who catheterizes him, she states that the volume receive is only between 12 and 15 cc each time she performs catheterization. Within the last month he started on chemotherapy for one positive lymph node noted and his white count is presently 2.5 and he is immune compromised from this. I have recommended that he would stop clean intermittent catheterization as this would increase his risk of infections as his volumes are minimal. He will only need to irrigate on an as needed basis when mucous was abundant. PAST MEDICAL HISTORY: Muscle invasive bladder cancer. TIA. Neuropathy. PAST SURGICAL HISTORY: 1. Radical cystoprostatectomy with ashley-bladder on 01/26/2016. 2. Reoperation for urinary leak. 3. Tonsillectomy. 4. Cervical fusion as noted. MEDICATIONS: Please refer to the chart. ALLERGIES SULFA. LORTAB. OXYCODONE. FAMILY HISTORY: Denies any family history of prostate cancer. SOCIAL HISTORY: Former smoker, quit in March of 2016. Denies alcohol or drug use. REVIEW OF SYSTEMS: Presently denies fever or chills, although was noted on admission, denies shortness of breath, denies chest pain, denies gait disturbance, bleeding disorder, psychiatric problems, denies rashes or skin lesions, denies joint pain or swelling, denies bruising, denies anxiety or confusion. PHYSICAL EXAMINATION: VITAL SIGNS: Temperature 98.8, heart rate 85, respiratory rate 17, blood pressure 121/65. GENERAL: The patient is a well-developed, well-nourished 70 year-old male in no acute distress. HEENT: Normocephalic, atraumatic. Pupils equal round react to light. Extraocular is intact. NECK: Supple. HEART: Regular rate and rhythm. LUNGS: Clear. ABDOMEN: Soft, non-tender, non-distended. There is no CVA tenderness. EXTREMITIES: No clubbing, cyanosis or edema. LABORATORY DATA: White count is 2.5, hemoglobin of 8.9, hematocrit 26.3, platelet count of 348, sodium 141, potassium 3.4, chloride 107, CO2 25.7, BUN 12, creatinine 1.2, glucose of 111, calcium of 8.1. Urinalysis on admission showed large leuko-esterase, 180 white cells with 14 red cells. IMAGING STUDIES: Renal ultrasound performed 06/17/2016, the study has been reviewed. Conclusion: Mild dilatation of the right kidney and a small amount of fluid in the pelvis is noted. ASSESSMENT: The patient is a 70 year-old male with history of muscle invasive bladder cancer, status post cystoprostatectomy on 01/26/2016. Postoperative course complicated by rupture of the ashley-bladder requiring re-exploration and repair with drainage of abscess, now with fever and chills, probable urinary tract infection with possible pyelonephritis. Would recommend continuing with IV antibiotics. Follow up with renal culture results. Stop clean intermittent catheterization as this will increase risk of infection and currently the patient receiving chemotherapy and is immune compromised. CT scan of the abdomen and pelvis may be indicated if fever persists but clinically he seems to be improving at present and would continue to monitor symptoms at this time and there is no evidence of any abdominal pain. Thank you for the consult and allowing me to participate in the care of this patient. Howard BORDEN /1:12 PM /1:44 PM
[2016-06-18 15:25] LABS: C. DIFF EPI 027 PRESUMPTIVE NEGATIVE (NEGATIVE); C. DIFF TOXIN PCR NEGATIVE (NEGATIVE)
[2016-06-18] MEDS ORDERED: IOHEXOL 350 MG/ML 10 ML VIAL (for RAD DIAG) IV ONE (16:57)
[2016-06-18] MEDS ORDERED: ACETAMINOPHEN/HYDROcodone 325 MG/5 MG TAB PO PRN (17:30)
--- NOTE | 2016-06-18 17:31 | RADRPT ---
EXAM DATE/TIME: 06/18/2016 16:44 [facility] COMPARISON: US KIDNEY/RENAL/BLADDER, June 17, 2016, 16:38. INDICATIONS : Urinary tract infection; evaluate for hydronephrosis. IV CONTRAST: 90 cc Omnipaque 350 (iohexol) IV ORAL CONTRAST: Prescribed oral contrast ingested. RADIATION DOSE: 16.30 CTDIvol (mGy) MEDICAL HISTORY : Cardiovascular disease. Carcinoma, bladder. Neobladder. SURGICAL HISTORY : Neobladder. ENCOUNTER: Initial ACUITY: 1 day PAIN SCALE: 4/10 LOCATION: Bilateral abdomen. TECHNIQUE: Volumetric scanning of the abdomen and pelvis was performed. Using automated exposure control and ad justment of the mA and/or kV according to patient size, radiation dose was kept as low as reasonably achievable to obtain optimal diagnostic quality images. FINDINGS: The visualized lower lungs are clear. No focal lesions in the liver. The gallbladder is contracted; no definite gallstones. Multiple calcifications in the spleen suggest granulomata. There is fatty atrophy of the pancreas. The abdominal aorta is normal in dimension. Loops of small and large bowel are normal in diameter. There is oral contrast present in the colon; no residual oral contrast in s mall bowel. The appendix is identified in the right lower quadrant, is normal in dimension and there is a thin amount of contrast present within the lumen of the appendix. There is a neobladder in place. In the right lateral pelvic wall, there is a 3.4 cm oval area with s mooth margins and mean CT density 5 Hounsfield units suggesting either a seroma or local fluid collec tions; multiple hemoclips are present both anterior and posterior to this cystic area. No intralumin al gas. There is moderate dilation of the collecting system the right kidney and the right ureter is dilated all the way down to the level of the anastomosis which is located in the right lower quadrant. There is a small metallic density at the anastomosis of ureter into bowel suggesting possible obstruction at this level; this is best seen on image #73. No dilation of the collecting system all are ureter o n the left side. There is thinning of the cortex of the lateral upper and mid pole of the left kidne y. No evidence of free fluid. The osseous structures are grossly intact. CONCLUSION: 1. There is dilation of the collecting system and right ureter all the way down to the anastomosis si te with bowel in the right lower quadrant. This is asymmetric in appearance with the contralateral s delaney. A findings suggest an obstruction at the anastomosis site. 2. Focal 3.4 cm fluid collection in the right lateral pelvis adjacent to multiple hemoclips suggestin g either seroma or other fluid collection. No wall thickening or intraluminal gas to suggest abscess . Hitesh Torres MD on June 18, 2016 at 17:22 Board Certified Radiologist. This report was verified electronically.
[2016-06-18] MEDS ORDERED: LOPERAMIDE HCL 2 MG CAP PO ONE (20:30)
[2016-06-18] MEDS: PYRIDOXINE HCL 50 MG TAB PO SCH (20:43)
[2016-06-18] MEDS: VANCOMYCIN INJ 1,600 MG in SODIUM CHLORID 0.9% 500 ML INJ 500 ML IV SCH (20:43)
[2016-06-18] MEDS ORDERED: PHARMACY ORDERED LAB XX ONE (20:45)
[2016-06-19] VITALS (7 sets, daily range): BP systolic 101–132; BP diastolic 52–72; PULSE 74–91; RESP 17–21; TEMP 97–97.9; O2SAT 97–100
[2016-06-19] MEDS: PIPERACIL-TAZO 4.5 GM PREMIX 100 ML IV SCH ×2 (01:21→06:50)
[2016-06-19] MEDS: SODIUM CHLOR 0.9% 1000 ML INJ 1,000 ML IV SCH ×3 (06:49→21:00)
[2016-06-19] MEDS: SODIUM CHLORIDE 0.9% FLUSH 5 ML FLUSH FLUSH SCH ×2 (09:00→21:00)
[2016-06-19] MEDS: PANTOPRAZOLE SOD 20 MG DELAYED RELEASE TAB PO SCH (09:15)
[2016-06-19] MEDS: ACYCLOVIR 200 MG CAP PO SCH ×2 (09:15→20:59)
[2016-06-19] MEDS: GABAPENTIN 400 MG CAP PO SCH ×2 (09:15→20:59)
[2016-06-19] MEDS: FERROUS SULFATE 325 MG (65 MG ELEMENTAL IRON) TAB PO SCH (09:15)
--- NOTE | 2016-06-19 09:43 | HHI.PR ---
Subjective Remarks remains afebrile and overall feeling better today. no new complaints. Objective Vitals Vital Signs Date Time Temp Pulse Resp B/P Pulse Ox O2 Delivery O2 Flow Rate FiO2 06/19/16 04:00 97.3 83 21 105/59 100 06/19/16 00:05 97.9 79 19 101/52 98 06/19/16 00:00 97.9 79 19 101/52 98 06/18/16 20:00 97.6 68 19 112/59 96 06/18/16 16:00 98.1 80 17 107/61 99 06/18/16 11:38 98.8 85 17 121/65 98 I/O 06/18/16 06/18/16 06/18/16 06/19/16 06/19/16 06/19/16 07:00 15:00 23:00 07:00 15:00 23:00 Intake Total 1439 ml 2052 ml 1640 ml 1200 ml Output Total 950 ml 1000 ml Balance 1439 ml 1102 ml 640 ml 1200 ml Intake Oral 360 ml 720 ml 240 ml IV Total 1079 ml 1332 ml 1400 ml 1200 ml Output Urine Total 550 ml 1000 ml Stool Total 400 ml # Voids 3 2 # Bowel Movements 0 0 Result Diagram: 06/18/16 0515 06/18/16 0515 Imaging Last Impressions Abdomen/Pelvis CT 06/18/16 0000 Signed Impressions: Service Date/Time: Saturday, June 18, 2016 16:44 - CONCLUSION: 1. There is dilation of the collecting system and right ureter all the way down to the anastomosis site with bowel in the right lower quadrant. This is asymmetric in appearance with the contralateral side. A findings suggest an obstruction at the anastomosis site. 2. Focal 3.4 cm fluid collection in the right lateral pelvis adjacent to multiple hemoclips suggesting either seroma or other fluid collection. No wall thickening or intraluminal gas to suggest abscess. Hitesh Torres MD Renal Ultrasound 06/17/16 0000 Signed Impressions: Service Date/Time: Friday, June 17, 2016 16:38 - CONCLUSION: 1. Mild dilation of the collecting system of the right kidney. 2. Small amount of free fluid in the pelvis. Hitesh Torres MD Chest X-Ray 06/16/16 0924 Signed Impressions: Service Date/Time: Thursday, June 16, 2016 09:26 - CONCLUSION: No consolidative infiltrates. Indwelling right subclavian venous catheter. A few thin linear areas of density in the left costophrenic angle which may represent subsegmental discoid atelectasis or scarring Ricki Johnson MD Objective Remarks GENERAL: This is a well-nourished, well-developed patient, in no apparent distress. CARDIOVASCULAR: Regular rate and regular rhythm without murmurs, gallops, or rubs. RESPIRATORY: Clear to auscultation. Breath sounds equal bilaterally. No wheezes , rales, or rhonchi. GASTROINTESTINAL: Abdomen soft, non-tender, nondistended. Normal, active bowel sounds MUSCULOSKELETAL: Extremities without clubbing, cyanosis, or edema. NEURO: Alert & Oriented x4 to person, place, time, situation. Moves all ext x4 Procedures none Medications and IVs Current Medications Vancomycin HCl 1000 mg/Sodium Chloride 250 ml @ 250 mls/hr ONCE STAT IV Last administered on 06/16/16 09:52; Start 06/16/16 at 09:24; Stop 06/16/16 at 10:23 ; Status DC Piperacillin Sod/ Tazobactam Sod 100 ml @ 200 mls/hr ONCE STAT IV Last administered on 06/16/16 09:52; Start 06/16/16 at 09:24; Stop 06/16/16 at 09:53 ; Status DC Sodium Chloride (NS 1000 ml Inj) 1,000 ml @ 999 mls/hr BOLUS ONCE IV Last administered on 06/16/16 09:52; Start 06/16/16 at 09:30; Stop 06/16/16 at 10:30 ; Status DC Acetaminophen (Tylenol) 1,000 mg ONCE ONCE PO Last administered on 06/16/16 11:30; Start 06/16/16 at 11:30; Stop 06/16/16 at 11:42; Status DC Lorazepam 1 mg 1 mg ONCE ONCE IV PUSH Last administered on 06/16/16 11:32; Start 06/16/16 at 11:30; Stop 06/16/16 at 11:42; Status DC Sodium Chloride (NS 1000 ml Inj) 1,000 ml @ 999 mls/hr BOLUS ONCE IV Last administered on 06/16/16 11:54; Start 06/16/16 at 12:00; Stop 06/16/16 at 13:00 ; Status DC IV Flush (NS Flush) 2 ml UNSCH PRN FLUSH FLUSH AFTER USING IV ACCESS; Start at 13:00 IV Flush (NS Flush) 2 ml BID FLUSH Last administered on 06/18/16 20:46; Start 06/16/16 at 21:00 Acetaminophen (Tylenol) 650 mg Q4H PRN PO FEVER/HEADACHE Last administered on 13:50; Start 06/16/16 at 13:00 Ondansetron HCl (Zofran Inj) 4 mg Q6H PRN IVP NAUSEA OR VOMITING; Start at 13:00 Enoxaparin Sodium 40 mg 40 mg Q24H SQ Last administered on 06/18/16 13:36; Start 06/16/16 at 14:00 Sodium Chloride (NS 1000 ml Inj) 1,000 ml @ 150 mls/hr Q6H40M IV Last administered on 06/19/16 06:49; Start 06/16/16 at 14:00 Acyclovir (Zovirax) 400 mg BID PO Last administered on 06/19/16 09:15; Start 06/16/16 at 21:00 Ferrous Sulfate (Ferrous Sulfate) 650 mg DAILY PO Last administered on 09:15; Start 06/17/16 at 09:00 Gabapentin (Neurontin) 1,200 mg TID PO ; Start 06/16/16 at 14:00; Status Cancel Pyridoxine HCl (Vitamin B6) 100 mg HS PO Last administered on 06/18/16 20:43; Start 06/16/16 at 21:00 Non-Formulary Medication 2 cap BID PO ; Start 06/16/16 at 21:00; Status UNV Pantoprazole Sodium 20 mg 20 mg DAILY PO Last administered on 06/19/16 09:15; Start 06/17/16 at 09:00 Piperacillin Sod/ Tazobactam Sod 100 ml @ 200 mls/hr Q8H IV Last administered on 06/18/16 05:14; Start 06/16/16 at 14:00; Stop 06/18/16 at 12:18; Status DC Vancomycin HCl 1000 mg/Sodium Chloride 250 ml @ 250 mls/hr Q24H IV ; Start at 13:15; Status UNV Pharmacy Profile Note (Vancomycin Consult Pharmacy) 0 ml @ 0 mls/hr UNSCH OTHER ; Start 06/16/16 at 13:15 Gabapentin 800 mg 800 mg BID PO Last administered on 06/19/16 09:15; Start at 14:00 Vancomycin HCl 1600 mg/Sodium Chloride 516 ml @ 250 mls/hr Q24H IV ; Start at 15:00; Stop 06/16/16 at 15:00; Status DC Vancomycin HCl/ Sodium Chloride (Vancomycin Inj/ NS 500 ml Inj) 516 ml @ 250 mls/hr Q24H IV Last administered on 06/18/16 20:43; Start 06/16/16 at 21:00; Stop 06/18/16 at 21:59; Status DC Miscellaneous Information SPECIFIC LAB TO BE [facility]... ONCE ONCE XX Last administered on 06/18/16 20:45; Start 06/18/16 at 20:45; Stop 06/18/16 at 20:46 ; Status DC Guaifenesin/ Dextromethorphan (Robitussin Dm 200-20 Mg/10 ml Liq) 10 ml Q4H PRN PO COUGH Last administered on 06/18/16 09:38; Start 06/17/16 at 12:00 Lidocaine HCl (Xylocaine 2% Jelly) 1 applic UNSCH PRN TOPICAL STRAIGHT CATH; Start 06/17/16 at 13:00 Potassium Chloride 20 meq 20 meq ONCE ONCE PO Last administered on 06/18/16 08:17; Start 06/18/16 at 07:45; Stop 06/18/16 at 07:55; Status DC Piperacillin Sod/ Tazobactam Sod (Zosyn 4.5 Gm Premix) 100 ml @ 200 mls/hr Q6H IV Last administered on 06/19/16 06:50; Start 06/18/16 at 13:00 Diatrizoate Meglum/ Diatrizoate Sod ( Gastroview Liq) 18 ml ONCE ONCE PO Last administered on 06/18/16 13:35; Start 06/18/16 at 13:00; Stop 06/18/16 at 13:01; Status DC Iohexol (Omnipaque 350 Inj) 90 ml STK-MED ONCE IV Last administered on 16:57; Start 06/18/16 at 16:57; Stop 06/18/16 at 16:58; Status DC Acetaminophen/ Hydrocodone Bitart ([place] 5-325 Mg) 1 tab Q6H PRN PO HEADACHE Last administered on 06/18/16 18:26; Start 06/18/16 at 17:30 Loperamide HCl 4 mg 4 mg ONCE ONCE PO Last administered on 06/18/16 20:43; Start 06/18/16 at 20:30; Stop 06/18/16 at 20:31; Status DC Vancomycin HCl/ Sodium Chloride (Vancomycin Inj/ NS 250 ml Inj) 261 ml @ 250 mls/hr Q12H IV ; Start 06/19/16 at 14:00; Stop 06/19/16 at 14:00; Status DC Miscellaneous Information SPECIFIC LAB TO BE DRAWN:VANCO TROUGH DATE TO BE ONCE ONCE XX ; Start 06/20/16 at 01:45; Stop 06/20/16 at 01:46 Vancomycin HCl/ Sodium Chloride (Vancomycin Inj/ NS 500 ml Inj) 520 ml @ 260 mls/hr Q24H IV ; Start 06/19/16 at 12:00 Miscellaneous Information SPECIFIC LAB TO BE ONCE ONCE XX ; Start at 11:45; Stop 06/22/16 at 11:46 A/P Assessment and Plan A/P -sepsis likely due to UTI/pyelonephritis with history of bladder cancer CT of the abdomen / pelvis with dilation of the collecting system and right ureter all the way down to the anastomosis site with bowel in the right lower quadrant. This is asymmetric in appearance with the contralateral side. A findings suggest an obstruction at the anastomosis site. Focal 3.4 cm fluid collection in the right lateral pelvis adjacent to multiple hemoclips suggesting either seroma or other fluid collection. No wall thickening or intraluminal gas to suggest abscess. Continue IV Vancomycin and Zosyn Continue IV fluids blood cultures negative and UC with strep [facility] awaiting ID follow-up and recommendations urology consult appreciated. -anemia no signs of active bleeding, likely chronic, continue to monitor cbc. - Leukopenia due to chemotherapy, improving, monitor counts -diarrhea-better- stool negative for c-diff Discharge Planning when cleared by ID and urology. Carolyne Donald MD Jun 19, 2016 09:43
[2016-06-19] MEDS: cefTRIAXone INJ 2,000 MG in SODIUM CHLORIDE 0.9% INJ 100 ML IV SCH (11:13)
[2016-06-19 11:45] LABS: BLOOD, URINE NEG (NEG); COMMENT (UR) CULTURE INDICATED; CULTURE IF INDICATED CULTURE INDICATED; GLUCOSE,URINE NEG (NEG); KETONE, URINE NEG (NEG); NITRITE,URINE NEG (NEG); PH, URINE 6.5 (5.0-8.5); RENAL EPITHELIAL CELLS <1 /hpf; SQUAMOUS EPITHELIAL CELL URINE <1 /hpf (0-5); TRANSITIONAL EPI CELLS, URINE <1 /hpf; URINE COLOR LIGHT-YELLOW (YELLW/STRAW)
[2016-06-19] MEDS ORDERED: VANCOMYCIN INJ 2,000 MG in SODIUM CHLORID 0.9% 500 ML INJ 500 ML IV SCH (12:00)
[2016-06-19] MEDS: ENOXAPARIN SODIUM 40 MG/0.4 ML SYRINGE SQ SCH (13:47)
[2016-06-19] MEDS ORDERED: VANCOMYCIN INJ 1,100 MG in SODIUM CHLOR 0.9% 250 ML INJ 250 ML IV SCH (14:00)
[2016-06-19] MEDS: PYRIDOXINE HCL 50 MG TAB PO SCH (20:59)
[2016-06-20] VITALS: BP 113/58; PULSE 75; RESP 20; TEMP 97.1; O2SAT 97
[2016-06-20] MEDS ORDERED: PHARMACY ORDERED LAB XX ONE (01:45)
[2016-06-20 04:00] VITALS: BP 148/79; PULSE 86; RESP 20; TEMP 97.3; O2SAT 98
[2016-06-20 07:15] LABS: AUTOMATED NEUTROPHIL # 1.7 TH/MM3 (1.8-7.7); BASOPHIL % 0.4 % (0.0-2.0); EOSINOPHIL % 1.3 % (0.0-4.0); HEMATOCRIT 24.3 % (39.0-51.0); LYMPH % 21.5 % (9.0-44.0); LYMPHOCYTE # 0.6 TH/MM3 (1.0-4.8); MEAN CELL VOLUME 81.8 FL (80.0-100.0); MEAN CORPUSCULAR HEMOGLOBIN 27.4 PG (27.0-34.0); MEAN CORPUSCULAR HGB CONC 33.5 % (32.0-36.0); MONO % 17.3 % (0.0-8.0); NEUT % 59.5 % (16.0-70.0); PLATELET COUNT 284 TH/MM3 (150-450); RED BLOOD COUNT 2.97 MIL/MM3 (4.50-5.90); RED CELL DISTRIBUTION WIDTH 19.2 % (11.6-17.2); WHITE BLOOD COUNT 2.9 TH/MM3 (4.0-11.0)
[2016-06-20 07:19] LABS: HEMO FLAGS AUTO DIFF
[2016-06-20] MEDS: FERROUS SULFATE 325 MG (65 MG ELEMENTAL IRON) TAB PO SCH (07:22)
[2016-06-20] MEDS: GABAPENTIN 400 MG CAP PO SCH ×2 (07:22→20:44)
[2016-06-20] MEDS: ACYCLOVIR 200 MG CAP PO SCH ×2 (07:22→20:44)
[2016-06-20] MEDS: PANTOPRAZOLE SOD 20 MG DELAYED RELEASE TAB PO SCH (07:22)
[2016-06-20] MEDS: SODIUM CHLOR 0.9% 1000 ML INJ 1,000 ML IV SCH ×2 (07:23→07:26)
[2016-06-20] MEDS: SODIUM CHLORIDE 0.9% FLUSH 5 ML FLUSH FLUSH SCH ×2 (07:24→20:45)
[2016-06-20 08:00] VITALS: BP 134/70; PULSE 81; RESP 17; TEMP 97.9; O2SAT 98
--- NOTE | 2016-06-20 08:05 | HHI.PR ---
Subjective Remarks in no acute distress and is comfortable. no fever. no abdominal pain, nausea or vomiting. Objective Vitals Vital Signs Date Time Temp Pulse Resp B/P Pulse Ox O2 Delivery O2 Flow Rate FiO2 06/20/16 04:00 97.3 86 20 148/79 98 06/20/16 00:00 97.1 75 20 113/58 97 06/19/16 20:00 97.0 85 20 123/67 97 06/19/16 16:00 97.1 91 17 127/72 98 06/19/16 12:00 97.5 74 20 128/66 99 I/O 06/19/16 06/19/16 06/19/16 06/20/16 06/20/16 06/20/16 07:00 15:00 23:00 07:00 15:00 23:00 Intake Total 1200 ml 1248 ml 1542 ml 240 ml Balance 1200 ml 1248 ml 1542 ml 240 ml Intake Oral 560 ml 480 ml 240 ml IV Total 1200 ml 688 ml 1062 ml # Voids 3 2 2 # Bowel Movements 2 1 Result Diagram: 06/20/16 0640 06/18/16 0515 Imaging Last Impressions Abdomen/Pelvis CT 06/18/16 0000 Signed Impressions: Service Date/Time: Saturday, June 18, 2016 16:44 - CONCLUSION: 1. There is dilation of the collecting system and right ureter all the way down to the anastomosis site with bowel in the right lower quadrant. This is asymmetric in appearance with the contralateral side. A findings suggest an obstruction at the anastomosis site. 2. Focal 3.4 cm fluid collection in the right lateral pelvis adjacent to multiple hemoclips suggesting either seroma or other fluid collection. No wall thickening or intraluminal gas to suggest abscess. Hitesh Torres MD Renal Ultrasound 06/17/16 0000 Signed Impressions: Service Date/Time: Friday, June 17, 2016 16:38 - CONCLUSION: 1. Mild dilation of the collecting system of the right kidney. 2. Small amount of free fluid in the pelvis. Hitesh Torres MD Chest X-Ray 06/16/16 0924 Signed Impressions: Service Date/Time: Thursday, June 16, 2016 09:26 - CONCLUSION: No consolidative infiltrates. Indwelling right subclavian venous catheter. A few thin linear areas of density in the left costophrenic angle which may represent subsegmental discoid atelectasis or scarring Ricki Johnson MD Objective Remarks GENERAL: This is a well-nourished, well-developed patient, in no apparent distress. CARDIOVASCULAR: Regular rate and regular rhythm without murmurs, gallops, or rubs. RESPIRATORY: Clear to auscultation. Breath sounds equal bilaterally. No wheezes , rales, or rhonchi. GASTROINTESTINAL: Abdomen soft, non-tender, nondistended. Normal, active bowel sounds MUSCULOSKELETAL: Extremities without clubbing, cyanosis, or edema. NEURO: Alert & Oriented x4 to person, place, time, situation. Moves all ext x4 Procedures none Medications and IVs Current Medications Vancomycin HCl 1000 mg/Sodium Chloride 250 ml @ 250 mls/hr ONCE STAT IV Last administered on 06/16/16 09:52; Start 06/16/16 at 09:24; Stop 06/16/16 at 10:23 ; Status DC Piperacillin Sod/ Tazobactam Sod 100 ml @ 200 mls/hr ONCE STAT IV Last administered on 06/16/16 09:52; Start 06/16/16 at 09:24; Stop 06/16/16 at 09:53 ; Status DC Sodium Chloride (NS 1000 ml Inj) 1,000 ml @ 999 mls/hr BOLUS ONCE IV Last administered on 06/16/16 09:52; Start 06/16/16 at 09:30; Stop 06/16/16 at 10:30 ; Status DC Acetaminophen (Tylenol) 1,000 mg ONCE ONCE PO Last administered on 06/16/16 11:30; Start 06/16/16 at 11:30; Stop 06/16/16 at 11:42; Status DC Lorazepam 1 mg 1 mg ONCE ONCE IV PUSH Last administered on 06/16/16 11:32; Start 06/16/16 at 11:30; Stop 06/16/16 at 11:42; Status DC Sodium Chloride (NS 1000 ml Inj) 1,000 ml @ 999 mls/hr BOLUS ONCE IV Last administered on 06/16/16 11:54; Start 06/16/16 at 12:00; Stop 06/16/16 at 13:00 ; Status DC IV Flush (NS Flush) 2 ml UNSCH PRN FLUSH FLUSH AFTER USING IV ACCESS; Start at 13:00 IV Flush (NS Flush) 2 ml BID FLUSH Last administered on 06/20/16 07:24; Start 06/16/16 at 21:00 Acetaminophen (Tylenol) 650 mg Q4H PRN PO FEVER/HEADACHE Last administered on 13:50; Start 06/16/16 at 13:00 Ondansetron HCl (Zofran Inj) 4 mg Q6H PRN IVP NAUSEA OR VOMITING; Start at 13:00 Enoxaparin Sodium 40 mg 40 mg Q24H SQ Last administered on 06/19/16 13:47; Start 06/16/16 at 14:00 Sodium Chloride (NS 1000 ml Inj) 1,000 ml @ 150 mls/hr Q6H40M IV Last administered on 06/20/16 07:23; Start 06/16/16 at 14:00 Acyclovir (Zovirax) 400 mg BID PO Last administered on 06/20/16 07:22; Start 06/16/16 at 21:00 Ferrous Sulfate (Ferrous Sulfate) 650 mg DAILY PO Last administered on 07:22; Start 06/17/16 at 09:00 Gabapentin (Neurontin) 1,200 mg TID PO ; Start 06/16/16 at 14:00; Status Cancel Pyridoxine HCl (Vitamin B6) 100 mg HS PO Last administered on 06/19/16 20:59; Start 06/16/16 at 21:00 Non-Formulary Medication 2 cap BID PO ; Start 06/16/16 at 21:00; Status UNV Pantoprazole Sodium 20 mg 20 mg DAILY PO Last administered on 06/20/16 07:22; Start 06/17/16 at 09:00 Piperacillin Sod/ Tazobactam Sod 100 ml @ 200 mls/hr Q8H IV Last administered on 06/18/16 05:14; Start 06/16/16 at 14:00; Stop 06/18/16 at 12:18; Status DC Vancomycin HCl 1000 mg/Sodium Chloride 250 ml @ 250 mls/hr Q24H IV ; Start at 13:15; Status UNV Pharmacy Profile Note (Vancomycin Consult Pharmacy) 0 ml @ 0 mls/hr UNSCH OTHER ; Start 06/16/16 at 13:15; Stop 06/19/16 at 10:47; Status DC Gabapentin 800 mg 800 mg BID PO Last administered on 06/20/16 07:22; Start at 14:00 Vancomycin HCl 1600 mg/Sodium Chloride 516 ml @ 250 mls/hr Q24H IV ; Start at 15:00; Stop 06/16/16 at 15:00; Status DC Vancomycin HCl/ Sodium Chloride (Vancomycin Inj/ NS 500 ml Inj) 516 ml @ 250 mls/hr Q24H IV Last administered on 06/18/16 20:43; Start 06/16/16 at 21:00; Stop 06/18/16 at 21:59; Status DC Miscellaneous Information SPECIFIC LAB TO BE ROBINSON... ONCE ONCE XX Last administered on 06/18/16 20:45; Start 06/18/16 at 20:45; Stop 06/18/16 at 20:46 ; Status DC Guaifenesin/ Dextromethorphan (Robitussin Dm 200-20 Mg/10 ml Liq) 10 ml Q4H PRN PO COUGH Last administered on 06/18/16 09:38; Start 06/17/16 at 12:00 Lidocaine HCl (Xylocaine 2% Jelly) 1 applic UNSCH PRN TOPICAL STRAIGHT CATH; Start 06/17/16 at 13:00 Potassium Chloride 20 meq 20 meq ONCE ONCE PO Last administered on 06/18/16 08:17; Start 06/18/16 at 07:45; Stop 06/18/16 at 07:55; Status DC Piperacillin Sod/ Tazobactam Sod (Zosyn 4.5 Gm Premix) 100 ml @ 200 mls/hr Q6H IV Last administered on 06/19/16 06:50; Start 06/18/16 at 13:00; Stop at 10:48; Status DC Diatrizoate Meglum/ Diatrizoate Sod ( Gastroview Liq) 18 ml ONCE ONCE PO Last administered on 06/18/16 13:35; Start 06/18/16 at 13:00; Stop 06/18/16 at 13:01; Status DC Iohexol (Omnipaque 350 Inj) 90 ml STK-MED ONCE IV Last administered on 16:57; Start 06/18/16 at 16:57; Stop 06/18/16 at 16:58; Status DC Acetaminophen/ Hydrocodone Bitart ([place] 5-325 Mg) 1 tab Q6H PRN PO HEADACHE Last administered on 06/18/16 18:26; Start 06/18/16 at 17:30 Loperamide HCl 4 mg 4 mg ONCE ONCE PO Last administered on 06/18/16 20:43; Start 06/18/16 at 20:30; Stop 06/18/16 at 20:31; Status DC Vancomycin HCl/ Sodium Chloride (Vancomycin Inj/ NS 250 ml Inj) 261 ml @ 250 mls/hr Q12H IV ; Start 06/19/16 at 14:00; Stop 06/19/16 at 14:00; Status DC Miscellaneous Information SPECIFIC LAB TO BE DRAWN:VANCO TROUGH DATE TO BE ONCE ONCE XX ; Start 06/20/16 at 01:45; Stop 06/20/16 at 01:46; Status DC Vancomycin HCl/ Sodium Chloride (Vancomycin Inj/ NS 500 ml Inj) 520 ml @ 260 mls/hr Q24H IV ; Start 06/19/16 at 12:00; Stop 06/19/16 at 12:00; Status DC Miscellaneous Information SPECIFIC LAB TO BE ONCE ONCE XX ; Start at 11:45; Stop 06/22/16 at 11:45; Status DC Ceftriaxone Sodium/Sodium Chloride (Rocephin Inj/NS Inj) 100 ml @ 200 mls/hr Q24H IV Last administered on 06/19/16 11:13; Start 06/19/16 at 11:00 A/P Assessment and Plan A/P -sepsis likely due to UTI/pyelonephritis with history of bladder cancer CT of the abdomen / pelvis with dilation of the collecting system and right ureter all the way down to the anastomosis site with bowel in the right lower quadrant. This is asymmetric in appearance with the contralateral side. A findings suggest an obstruction at the anastomosis site. Focal 3.4 cm fluid collection in the right lateral pelvis adjacent to multiple hemoclips suggesting either seroma or other fluid collection. No wall thickening or intraluminal gas to suggest abscess. Abx changed to IV Rocephin repeated UC pending. blood cultures negative and UC with strep [facility] awaiting ID and urology follow-up and recommendations -anemia- due to chronic disease and partly dilutional no signs of active bleeding- continue to monitor cbc. - Leukopenia due to chemotherapy, improving, monitor counts -diarrhea-better- stool negative for c-diff Discharge Planning when cleared by ID and urology. Carolyne Donald MD Jun 20, 2016 08:05
[2016-06-20 08:54] LABS: BANDS 3 % (0-6); METAMYELOCYTES 5 % (0-1); MYELOCYTES 4 % (0-0); POLYS (SEG NEUTROPHILS) 56 % (16-70); PROMYELOCYTES 1 % (0-0); WBC DIFF SAMPLE 100
[2016-06-20 08:55] LABS: PLATELET ESTIMATE SMEAR NORMAL (NORMAL); PLATELET MORPHOLOGY NORMAL (NORMAL); SCAN/DIFF FINAL DIFF MANUAL
[2016-06-20] MEDS: cefTRIAXone INJ 2,000 MG in SODIUM CHLORIDE 0.9% INJ 100 ML IV SCH (10:22)
--- NOTE | 2016-06-20 10:49 | HHI.IDPN ---
Subjective Subjective Remarks Notes reviewed Temps better, last fever midnight 06/18 CT A/P hydro on R, and fluid collection that looks like seroma Patient feels overall much improved WBC 2.9 UC with viridans Strep BC negative Repeat UA better Antibiotics Rocephin Lines [place] Past Medical History Bladder cancer Extra heart beat TIA Neuropathy Past Surgical History Radical cystoprostatectomy, and creation of neobladder Repeat explor lap for urinary leak and had revision of his neobladder - treated for infection 5 implants in teeth Tonsillectomy Cervical Fusion C4-5-6 Allergies: Coded Allergies: Sulfa (Verified Allergy, Severe, RASH/HIVES/ITCHING, 06/16/16) Lortab (Verified Allergy, Mild, THROWS UP, 06/16/16) Oxycodone (Verified Allergy, Mild, THROWS UP, 06/16/16) Objective . Vital Signs Date Time Temp Pulse Resp B/P Pulse Ox O2 Delivery O2 Flow Rate FiO2 06/20/16 08:00 97.9 81 17 134/70 98 06/20/16 04:00 97.3 86 20 148/79 98 06/20/16 00:00 97.1 75 20 113/58 97 06/19/16 20:00 97.0 85 20 123/67 97 06/19/16 16:00 97.1 91 17 127/72 98 06/19/16 12:00 97.5 74 20 128/66 99 06/19/16 06/19/16 06/20/16 15:00 23:00 07:00 Intake Total 1248 ml 1542 ml 1489 ml Balance 1248 ml 1542 ml 1489 ml Intake Oral 560 ml 480 ml 240 ml IV Total 688 ml 1062 ml 1249 ml # Voids 3 2 2 # Bowel Movements 2 1 . Laboratory Tests Test 06/20/16 06:40 White Blood Count 2.9 TH/MM3 Red Blood Count 2.97 MIL/MM3 Hemoglobin 8.1 GM/DL Hematocrit 24.3 % Mean Corpuscular Volume 81.8 FL Mean Corpuscular Hemoglobin 27.4 PG Mean Corpuscular Hemoglobin 33.5 % Concent Red Cell Distribution Width 19.2 % Platelet Count 284 TH/MM3 Mean Platelet Volume 6.7 FL Neutrophils (%) (Auto) 59.5 % Lymphocytes (%) (Auto) 21.5 % Monocytes (%) (Auto) 17.3 % Eosinophils (%) (Auto) 1.3 % Basophils (%) (Auto) 0.4 % Neutrophils # (Auto) 1.7 TH/MM3 Lymphocytes # (Auto) 0.6 TH/MM3 Monocytes # (Auto) 0.5 TH/MM3 Eosinophils # (Auto) 0.0 TH/MM3 Basophils # (Auto) 0.0 TH/MM3 CBC Comment AUTO DIFF Differential Total Cells 100 Counted Neutrophils % (Manual) 56 % Band Neutrophils % 3 % Lymphocytes % 16 % Monocytes % 15 % Neutrophils # (Manual) 2.0 TH/MM3 Metamyelocytes 5 % Myelocytes 4 % Promyelocytes 1 % Differential Comment FINAL DIFF MANUAL Platelet Estimate NORMAL Platelet Morphology Comment NORMAL Microbiology Date/Time Procedure Status Source Growth 06/19/16 11:24 Urine Culture Received Urine Clean Catch Pending Imaging Renal Ultrasound 06/17/16 0000 Signed Impressions: Service Date/Time: Friday, June 17, 2016 16:38 - CONCLUSION: 1. Mild dilation of the collecting system of the right kidney. 2. Small amount of free fluid in the pelvis. Hitesh Torres MD Chest X-Ray 06/16/16 0924 Signed Impressions: Service Date/Time: Thursday, June 16, 2016 09:26 - CONCLUSION: No consolidative infiltrates. Indwelling right subclavian venous catheter. A few thin linear areas of density in the left costophrenic angle which may represent subsegmental discoid atelectasis or scarring Ricki Johnson MD Physical Exam GENERAL: awake and alert, NAD SKIN: Warm and dry, no generalized rash HEENT: [place] conjunctivae, no petechia or hemorrhage. No scleral icterus. Moist oral mucosa. NECK: Supple, nontender, no meningeal signs. CARDIOVASCULAR: Regular rate and rhythm without murmurs, gallops, or rubs. [id number] in the right upper chest, currently accessed, no evidence of infection. RESPIRATORY: Clear to auscultation. Breath sounds equal bilaterally. No wheezes , rales, or rhonchi. GASTROINTESTINAL: Abdomen soft, non-tender, nondistended. Bowel sounds are present and normoactive. He has healed incisions. No guarding. No rebound. MUSCULOSKELETAL: Extremities without clubbing, cyanosis, or edema. No calf tenderness. NEUROLOGICAL: Grossly non-focal PSYCH: Normal affect, calm and cooperative LINE: [place] without evidence of infection Assessment & Plan Remarks IMPRESSION Sepsis, source, likely due to source - complicated UTI - has hydro on R Hx bladder CA, S/P radical cystoprostatectomy and creation of neobladder, had post-op leak, and repeat exp lap Mild neutropenia, possibly due to his chemo Renal insufficiency, better RECOMMENDATION Monitor temps Will use Ampicillin to complete UTI Rx Needs to follow-up with his urologist in [place] to look at his CT A/P and evaluate the hydro on R Continue Rocephin while in hospital Will ask radiology to make disc copy of his CT A/P I also gave patient copies of his US and CT report If stable ok for D/C tomorrow Explained plan to patient D/W Alysia Gallardo MD Jun 20, 2016 10:49
[2016-06-20 12:00] VITALS: BP 143/76; PULSE 93; RESP 17; TEMP 97.9; O2SAT 99
[2016-06-20] MEDS: AMOXICILLIN (TRIHYDRATE) 500 MG CAP PO SCH ×2 (13:36→22:46)
[2016-06-20] MEDS: ENOXAPARIN SODIUM 40 MG/0.4 ML SYRINGE SQ SCH (13:37)
[2016-06-20 16:00] VITALS: BP 148/64; PULSE 83; RESP 16; TEMP 98.7; O2SAT 98
[2016-06-20] MEDS: guaiFENesin/DEXTROMETHORPHAN 200 MG/20 MG/10 ML CUP PO PRN (18:17)
[2016-06-20 20:00] VITALS: BP 121/83; PULSE 83; RESP 20; TEMP 97.8; O2SAT 99
[2016-06-20] MEDS: PYRIDOXINE HCL 50 MG TAB PO SCH (20:44)
[2016-06-21] VITALS: BP 141/69; PULSE 85; RESP 20; TEMP 95.6; O2SAT 96
[2016-06-21 04:00] VITALS: BP 123/69; PULSE 79; RESP 20; TEMP 98.4; O2SAT 99
[2016-06-21] MEDS: AMOXICILLIN (TRIHYDRATE) 500 MG CAP PO SCH (05:35)
[2016-06-21 06:45] LABS: AUTOMATED NEUTROPHIL # 3.8 TH/MM3 (1.8-7.7); BASOPHIL % 0.1 % (0.0-2.0); EOSINOPHIL % 0.3 % (0.0-4.0); HEMATOCRIT 25.5 % (39.0-51.0); LYMPH % 16.7 % (9.0-44.0); LYMPHOCYTE # 0.9 TH/MM3 (1.0-4.8); MEAN CELL VOLUME 81.5 FL (80.0-100.0); MEAN CORPUSCULAR HEMOGLOBIN 27.9 PG (27.0-34.0); MEAN CORPUSCULAR HGB CONC 34.3 % (32.0-36.0); MONO % 14.9 % (0.0-8.0); PLATELET COUNT 295 TH/MM3 (150-450); RED BLOOD COUNT 3.13 MIL/MM3 (4.50-5.90); RED CELL DISTRIBUTION WIDTH 19.1 % (11.6-17.2); WHITE BLOOD COUNT 5.5 TH/MM3 (4.0-11.0)
[2016-06-21 07:01] LABS: HEMO FLAGS AUTO DIFF
[2016-06-21 07:46] LABS: BANDS 5 % (0-6); METAMYELOCYTES 2 % (0-1); MYELOCYTES 3 % (0-0); POLYS (SEG NEUTROPHILS) 62 % (16-70); WBC DIFF SAMPLE 100
[2016-06-21 07:48] LABS: PLATELET ESTIMATE SMEAR NORMAL (NORMAL); PLATELET MORPHOLOGY NORMAL (NORMAL); SCAN/DIFF FINAL DIFF MANUAL
[2016-06-21 08:00] VITALS: BP 154/75; PULSE 91; RESP 16; TEMP 99.1; O2SAT 98
[2016-06-21] MEDS ORDERED: AMOX500T PO (09:09)
--- NOTE | 2016-06-21 09:21 | HHI.PR ---
Subjective Remarks resting comfortably with no distress. no fever or pain. wants to go home today. d/w the RN. Objective Vitals Vital Signs Date Time Temp Pulse Resp B/P Pulse Ox O2 Delivery O2 Flow Rate FiO2 06/21/16 04:00 98.4 79 20 123/69 99 06/21/16 00:00 95.6 85 20 141/69 96 06/20/16 20:00 97.8 83 20 121/83 99 06/20/16 16:00 98.7 83 16 148/64 98 06/20/16 12:00 97.9 93 17 143/76 99 I/O 06/20/16 06/20/16 06/20/16 06/21/16 06/21/16 06/21/16 07:00 15:00 23:00 07:00 15:00 23:00 Intake Total 1489 ml 1604 ml 360 ml 0 ml Balance 1489 ml 1604 ml 360 ml 0 ml Intake Oral 240 ml 1080 ml 360 ml 0 ml IV Total 1249 ml 524 ml 0 ml # Voids 2 3 1 2 # Bowel Movements 1 2 Result Diagram: 06/21/16 0600 06/18/16 0515 Imaging Last Impressions Abdomen/Pelvis CT 06/18/16 0000 Signed Impressions: Service Date/Time: Saturday, June 18, 2016 16:44 - CONCLUSION: 1. There is dilation of the collecting system and right ureter all the way down to the anastomosis site with bowel in the right lower quadrant. This is asymmetric in appearance with the contralateral side. A findings suggest an obstruction at the anastomosis site. 2. Focal 3.4 cm fluid collection in the right lateral pelvis adjacent to multiple hemoclips suggesting either seroma or other fluid collection. No wall thickening or intraluminal gas to suggest abscess. Hitesh Torres MD Renal Ultrasound 06/17/16 0000 Signed Impressions: Service Date/Time: Friday, June 17, 2016 16:38 - CONCLUSION: 1. Mild dilation of the collecting system of the right kidney. 2. Small amount of free fluid in the pelvis. Hitesh Torres MD Chest X-Ray 06/16/16 0924 Signed Impressions: Service Date/Time: Thursday, June 16, 2016 09:26 - CONCLUSION: No consolidative infiltrates. Indwelling right subclavian venous catheter. A few thin linear areas of density in the left costophrenic angle which may represent subsegmental discoid atelectasis or scarring Ricki Johnson MD Objective Remarks GENERAL: This is a well-nourished, well-developed patient, in no apparent distress. CARDIOVASCULAR: Regular rate and regular rhythm without murmurs, gallops, or rubs. RESPIRATORY: Clear to auscultation. Breath sounds equal bilaterally. No wheezes , rales, or rhonchi. GASTROINTESTINAL: Abdomen soft, non-tender, nondistended. Normal, active bowel sounds MUSCULOSKELETAL: Extremities without clubbing, cyanosis, or edema. NEURO: Alert & Oriented x4 to person, place, time, situation. Moves all ext x4 Procedures none Medications and IVs Current Medications Vancomycin HCl 1000 mg/Sodium Chloride 250 ml @ 250 mls/hr ONCE STAT IV Last administered on 06/16/16 09:52; Start 06/16/16 at 09:24; Stop 06/16/16 at 10:23 ; Status DC Piperacillin Sod/ Tazobactam Sod 100 ml @ 200 mls/hr ONCE STAT IV Last administered on 06/16/16 09:52; Start 06/16/16 at 09:24; Stop 06/16/16 at 09:53 ; Status DC Sodium Chloride (NS 1000 ml Inj) 1,000 ml @ 999 mls/hr BOLUS ONCE IV Last administered on 06/16/16 09:52; Start 06/16/16 at 09:30; Stop 06/16/16 at 10:30 ; Status DC Acetaminophen (Tylenol) 1,000 mg ONCE ONCE PO Last administered on 06/16/16 11:30; Start 06/16/16 at 11:30; Stop 06/16/16 at 11:42; Status DC Lorazepam 1 mg 1 mg ONCE ONCE IV PUSH Last administered on 06/16/16 11:32; Start 06/16/16 at 11:30; Stop 06/16/16 at 11:42; Status DC Sodium Chloride (NS 1000 ml Inj) 1,000 ml @ 999 mls/hr BOLUS ONCE IV Last administered on 06/16/16 11:54; Start 06/16/16 at 12:00; Stop 06/16/16 at 13:00 ; Status DC IV Flush (NS Flush) 2 ml UNSCH PRN FLUSH FLUSH AFTER USING IV ACCESS; Start at 13:00 IV Flush (NS Flush) 2 ml BID FLUSH Last administered on 06/20/16 20:45; Start 06/16/16 at 21:00 Acetaminophen (Tylenol) 650 mg Q4H PRN PO FEVER/HEADACHE Last administered on 13:50; Start 06/16/16 at 13:00 Ondansetron HCl (Zofran Inj) 4 mg Q6H PRN IVP NAUSEA OR VOMITING; Start at 13:00 Enoxaparin Sodium 40 mg 40 mg Q24H SQ Last administered on 06/20/16 13:37; Start 06/16/16 at 14:00 Sodium Chloride (NS 1000 ml Inj) 1,000 ml @ 150 mls/hr Q6H40M IV Last administered on 06/20/16 07:23; Start 06/16/16 at 14:00; Status Hold Acyclovir (Zovirax) 400 mg BID PO Last administered on 06/20/16 20:44; Start 06/16/16 at 21:00 Ferrous Sulfate (Ferrous Sulfate) 650 mg DAILY PO Last administered on 07:22; Start 06/17/16 at 09:00 Gabapentin (Neurontin) 1,200 mg TID PO ; Start 06/16/16 at 14:00; Status Cancel Pyridoxine HCl (Vitamin B6) 100 mg HS PO Last administered on 06/20/16 20:44; Start 06/16/16 at 21:00 Non-Formulary Medication 2 cap BID PO ; Start 06/16/16 at 21:00; Status UNV Pantoprazole Sodium 20 mg 20 mg DAILY PO Last administered on 06/20/16 07:22; Start 06/17/16 at 09:00 Piperacillin Sod/ Tazobactam Sod 100 ml @ 200 mls/hr Q8H IV Last administered on 06/18/16 05:14; Start 06/16/16 at 14:00; Stop 06/18/16 at 12:18; Status DC Vancomycin HCl 1000 mg/Sodium Chloride 250 ml @ 250 mls/hr Q24H IV ; Start at 13:15; Status UNV Pharmacy Profile Note (Vancomycin Consult Pharmacy) 0 ml @ 0 mls/hr UNSCH OTHER ; Start 06/16/16 at 13:15; Stop 06/19/16 at 10:47; Status DC Gabapentin 800 mg 800 mg BID PO Last administered on 06/20/16 20:44; Start at 14:00 Vancomycin HCl 1600 mg/Sodium Chloride 516 ml @ 250 mls/hr Q24H IV ; Start at 15:00; Stop 06/16/16 at 15:00; Status DC Vancomycin HCl/ Sodium Chloride (Vancomycin Inj/ NS 500 ml Inj) 516 ml @ 250 mls/hr Q24H IV Last administered on 06/18/16 20:43; Start 06/16/16 at 21:00; Stop 06/18/16 at 21:59; Status DC Miscellaneous Information SPECIFIC LAB TO BE ROBINSON... ONCE ONCE XX Last administered on 06/18/16 20:45; Start 06/18/16 at 20:45; Stop 06/18/16 at 20:46 ; Status DC Guaifenesin/ Dextromethorphan (Robitussin Dm 200-20 Mg/10 ml Liq) 10 ml Q4H PRN PO COUGH Last administered on 06/20/16 18:17; Start 06/17/16 at 12:00 Lidocaine HCl (Xylocaine 2% Jelly) 1 applic UNSCH PRN TOPICAL STRAIGHT CATH; Start 06/17/16 at 13:00 Potassium Chloride 20 meq 20 meq ONCE ONCE PO Last administered on 06/18/16 08:17; Start 06/18/16 at 07:45; Stop 06/18/16 at 07:55; Status DC Piperacillin Sod/ Tazobactam Sod (Zosyn 4.5 Gm Premix) 100 ml @ 200 mls/hr Q6H IV Last administered on 06/19/16 06:50; Start 06/18/16 at 13:00; Stop at 10:48; Status DC Diatrizoate Meglum/ Diatrizoate Sod ( Gastroview Liq) 18 ml ONCE ONCE PO Last administered on 06/18/16 13:35; Start 06/18/16 at 13:00; Stop 06/18/16 at 13:01; Status DC Iohexol (Omnipaque 350 Inj) 90 ml STK-MED ONCE IV Last administered on 16:57; Start 06/18/16 at 16:57; Stop 06/18/16 at 16:58; Status DC Acetaminophen/ Hydrocodone Bitart ([place] 5-325 Mg) 1 tab Q6H PRN PO HEADACHE Last administered on 06/18/16 18:26; Start 06/18/16 at 17:30 Loperamide HCl 4 mg 4 mg ONCE ONCE PO Last administered on 06/18/16 20:43; Start 06/18/16 at 20:30; Stop 06/18/16 at 20:31; Status DC Vancomycin HCl/ Sodium Chloride (Vancomycin Inj/ NS 250 ml Inj) 261 ml @ 250 mls/hr Q12H IV ; Start 06/19/16 at 14:00; Stop 06/19/16 at 14:00; Status DC Miscellaneous Information SPECIFIC LAB TO BE DRAWN:VANCO TROUGH DATE TO BE ONCE ONCE XX ; Start 06/20/16 at 01:45; Stop 06/20/16 at 01:46; Status DC Vancomycin HCl/ Sodium Chloride (Vancomycin Inj/ NS 500 ml Inj) 520 ml @ 260 mls/hr Q24H IV ; Start 06/19/16 at 12:00; Stop 06/19/16 at 12:00; Status DC Miscellaneous Information SPECIFIC LAB TO BE .. ONCE ONCE XX ; Start at 11:45; Stop 06/22/16 at 11:45; Status DC Ceftriaxone Sodium/Sodium Chloride (Rocephin Inj/NS Inj) 100 ml @ 200 mls/hr Q24H IV Last administered on 06/20/16 10:22; Start 06/19/16 at 11:00 Amoxicillin (Trimox) 500 mg Q8HR PO Last administered on 06/21/16 05:35; Start 06/20/16 at 14:00; Stop 07/04/16 at 13:59 A/P Assessment and Plan A/P -sepsis likely due to UTI/pyelonephritis with history of bladder cancer CT of the abdomen / pelvis with dilation of the collecting system and right ureter all the way down to the anastomosis site with bowel in the right lower quadrant. This is asymmetric in appearance with the contralateral side. A findings suggest an obstruction at the anastomosis site. Focal 3.4 cm fluid collection in the right lateral pelvis adjacent to multiple hemoclips suggesting either seroma or other fluid collection. No wall thickening or intraluminal gas to suggest abscess. switched to po amoxicillin- repeated UC negative. blood cultures negative and initial UC with strep Virid[facility] cleared by ID and urology for discharge. -anemia- due to chronic disease and partly dilutional-stable no signs of active bleeding- continue to monitor cbc. - Leukopenia-improved due to chemotherapy, improving, monitor counts -diarrhea-better- stool negative for c-diff Discharge Planning dc home today with f/u by pcp and urology. see med list. d/w the patient and RN. previously d/w ID and Urology. time spent 31 min. Carolyne Donald MD Jun 21, 2016 09:21
--- NOTE | 2016-06-21 09:22 | HHI.DCPOC ---
Discharge Care Plan Diagnosis: (1) Pyelonephritis Your Health Problems Are: Inflammation Goals to Promote Your Health * To prevent worsening of your condition and complications * To maintain your health at the optimal level Directions to Meet Your Goals Take your medications as prescribed Follow your dietary instruction Follow activity as directed Keep your appointments as scheduled Take your immunizations and boosters as scheduled If your symptoms worsen call your PCP, if no PCP go to Urgent Care Center or Emergency Room Smoking is Dangerous to Your Health. Avoid second hand smoke Call the 24-hour hour crisis hotline for domestic abuse at Carolyne Donald MD Jun 21, 2016 09:22
--- NOTE | 2016-06-21 09:23 | HHI.DS ---
Discharge Summary Admission Date Jun 16, 2016 at 12:07 Discharge Date: Jun 21, 2016 Admitting Diagnosis sepsis, pyelonephritis (1) Sepsis ICD Code: A41.9 Diagnosis: Principal (2) UTI (urinary tract infection) ICD Code: N39.0 Diagnosis: Principal (3) Fever ICD Code: R50.9 Diagnosis: Principal (4) Anemia ICD Code: D64.9 Diagnosis: Secondary (5) Leukopenia ICD Code: D72.819 (6) Bladder cancer ICD Code: C67.9 Diagnosis: Secondary (7) Neutropenia ICD Code: D70.9 Diagnosis: Secondary (8) DELORES (acute kidney injury) ICD Code: N17.9 Diagnosis: Principal Procedures none Brief History - From Admission 70 yo male with pmh as below presents with fevers and chills which started at 3 am last night. patient states that he was his usual self yesterday. patient is somewhat a poor historian. states he has gotten his 3rd round of chemotherapy , last 2 dyas ago at [facility] and [place] under Dr MICHELLE, comes here c/o fever. Patient c/o cough ehich started today, headache, denies nausea or vomiting. He also denies sore throat, runny nose or dysuria. Patient took ! gram of tylenol at home and then came to the hospital under instruction from his oncologist. CBC/BMP: 06/21/16 0600 06/18/16 0515 Significant Findings Laboratory Tests Test 06/19/16 06/20/16 06/21/16 11:24 06:40 06:00 Urine WBC 12 /hpf (0-5) White Blood Count 2.9 TH/MM3 (4.0-11.0) Red Blood Count 2.97 MIL/MM3 3.13 MIL/MM3 (4.50-5.90) (4.50-5.90) Hemoglobin 8.1 GM/DL 8.8 GM/DL (13.0-17.0) (13.0-17.0) Hematocrit 24.3 % 25.5 % (39.0-51.0) (39.0-51.0) Red Cell Distribution Width 19.2 % 19.1 % (11.6-17.2) (11.6-17.2) Mean Platelet Volume 6.7 FL 6.8 FL (7.0-11.0) (7.0-11.0) Monocytes (%) (Auto) 17.3 % 14.9 % (0.0-8.0) (0.0-8.0) Neutrophils # (Auto) 1.7 TH/MM3 (1.8-7.7) Lymphocytes # (Auto) 0.6 TH/MM3 0.9 TH/MM3 (1.0-4.8) (1.0-4.8) Monocytes % 15 % (0-8) 10 % (0-8) Metamyelocytes 5 % (0-1) 2 % (0-1) Myelocytes 4 % (0-0) 3 % (0-0) Promyelocytes 1 % (0-0) Imaging Last Impressions Abdomen/Pelvis CT 06/18/16 0000 Signed Impressions: Service Date/Time: Saturday, June 18, 2016 16:44 - CONCLUSION: 1. There is dilation of the collecting system and right ureter all the way down to the anastomosis site with bowel in the right lower quadrant. This is asymmetric in appearance with the contralateral side. A findings suggest an obstruction at the anastomosis site. 2. Focal 3.4 cm fluid collection in the right lateral pelvis adjacent to multiple hemoclips suggesting either seroma or other fluid collection. No wall thickening or intraluminal gas to suggest abscess. Htiesh Torres MD Renal Ultrasound 06/17/16 0000 Signed Impressions: Service Date/Time: Friday, June 17, 2016 16:38 - CONCLUSION: 1. Mild dilation of the collecting system of the right kidney. 2. Small amount of free fluid in the pelvis. Hitesh Torres MD Chest X-Ray 06/16/16 0924 Signed Impressions: Service Date/Time: Thursday, June 16, 2016 09:26 - CONCLUSION: No consolidative infiltrates. Indwelling right subclavian venous catheter. A few thin linear areas of density in the left costophrenic angle which may represent subsegmental discoid atelectasis or scarring Ricki Johnson MD PE at Discharge GENERAL: This is a well-nourished, well-developed patient, in no apparent distress. CARDIOVASCULAR: Regular rate and regular rhythm without murmurs, gallops, or rubs. RESPIRATORY: Clear to auscultation. Breath sounds equal bilaterally. No wheezes , rales, or rhonchi. GASTROINTESTINAL: Abdomen soft, non-tender, nondistended. Normal, active bowel sounds MUSCULOSKELETAL: Extremities without clubbing, cyanosis, or edema. NEURO: Alert & Oriented x4 to person, place, time, situation. Moves all ext x4 Hospital Course -sepsis likely due to UTI/pyelonephritis with history of bladder cancer CT of the abdomen / pelvis with dilation of the collecting system and right ureter all the way down to the anastomosis site with bowel in the right lower quadrant. This is asymmetric in appearance with the contralateral side. A findings suggest an obstruction at the anastomosis site. Focal 3.4 cm fluid collection in the right lateral pelvis adjacent to multiple hemoclips suggesting either seroma or other fluid collection. No wall thickening or intraluminal gas to suggest abscess. switched to po amoxicillin- repeated UC negative. blood cultures negative and initial UC with strep Viridians cleared by ID and urology for discharge. -anemia- due to chronic disease and partly dilutional-stable no signs of active bleeding- continue to monitor cbc. - Leukopenia-improved due to chemotherapy, improving, monitor counts -diarrhea-better- stool negative for c-diff Pt Condition on Discharge: Good Discharge Disposition: Discharge Home Discharge Time: > 30 minutes Discharge Instructions DIET: Follow Instructions for: Heart Healthy Diet Activities you can perform: Regular-No Restrictions Follow up Referrals: PCP Follow-up Urology New Medications: Amoxicillin (Amoxicillin) 500 Mg Tab 500 MG PO TID Infection Days 14 Ref 0 TAB Continued Medications: Acyclovir (Acyclovir) 400 Mg Tab 400 MG PO BID Mgmt Viral Infection Ref 0 TAB [place] (Casc[place]) 450 Mg Cap 450 MG PO HS Constipation Cod Liver Oil (Cod Liver Oil) 1,000 Mg Cap 1000 MG PO BID Ferrous Sulfate (Ferrous Sulfate) 325 Mg Tab 650 MG PO DAILY Nutritional Supplement #30 Ref 0 TAB Gabapentin (Gabapentin) 600 Mg Tab 1200 MG PO TID #90 Ref 0 TAB Xkfhribbskd-Huwjtwczqdb-Qy Cho (Glucosamine Chondroitin & [phone] mg) 1 Tab Tab 2 TAB PO BID Leopold 3 Fatty Acids-Leopold 6 FA (Leopold 3-6-9 Complex) 1 Cap Cap 2 CAP PO BID Omeprazole (Omeprazole) 20 Mg Cap 20 MG PO DAILY Pyridoxine (Pyridoxine) 100 Mg Tab 100 MG PO HS Nutritional Supplement #30 Ref 0 TAB Turmeric (Curcuma Longa) (Bulk (Curcumin) 1 2706 MG PO BID ([Vit Code Mens]) 2 TAB PO BID ([Vitamin B -12 [place]]) 1000 MG PO DAILY Carolyne Donald MD Jun 21, 2016 09:23
[2016-06-21] MEDS: ACYCLOVIR 200 MG CAP PO SCH (09:25)
[2016-06-21] MEDS: GABAPENTIN 400 MG CAP PO SCH (09:25)
[2016-06-21] MEDS: FERROUS SULFATE 325 MG (65 MG ELEMENTAL IRON) TAB PO SCH (09:26)
[2016-06-21] MEDS: PANTOPRAZOLE SOD 20 MG DELAYED RELEASE TAB PO SCH (09:38)
[2016-06-21] MEDS: SODIUM CHLORIDE 0.9% FLUSH 5 ML FLUSH FLUSH SCH (09:39)
[2016-06-21] MEDS: guaiFENesin/DEXTROMETHORPHAN 200 MG/20 MG/10 ML CUP PO PRN (10:37)
[2016-06-22] MEDS ORDERED: PHARMACY ORDERED LAB XX ONE (11:45)
== END 2016-06-21 10:55 | disposition home or self-care (01) | DRG 872 ==
LOC: NEPE 09:11 → NEDA 12:07 → N07B 15:55
PROVIDERS: ADMIT Internal Medicine; ATTEND Internal Medicine
DX: A41.9 Sepsis, unspecified organism (principal); N17.9 Acute kidney failure, unspecified; D70.1 Agranulocytosis secondary to cancer chemotherapy; G62.9 Polyneuropathy, unspecified; N12 Tubulo-interstitial nephritis, not specified as acute or chronic; C67.9 Malignant neoplasm of bladder, unspecified; D63.8 Anemia in other chronic diseases classified elsewhere; T45.1X5A Adverse effect of antineoplastic and immunosuppressive drugs, initial encounter; R19.7 Diarrhea, unspecified; Z86.73 Personal history of transient ischemic attack (TIA), and cerebral infarction without residual deficits; Z87.891 Personal history of nicotine dependence; B95.4 Other streptococcus as the cause of diseases classified elsewhere; Z88.5 Allergy status to narcotic agent; Z88.2 Allergy status to sulfonamides
CPT/HCPCS: 71010; 74177; 76775; 80053; 80202; 81001; 83605; 83690; 83735; 84100; 85007; 85025; 85027; 87040; 87086; 87493; 87804; 93005; 96365; 96368; 96375; J0696; J1642; J1650; J2060; J2543; J3370; J7030; J7040; J7050; Q9963; Q9967

== ENCOUNTER 2016-09-01 21:27 | Inpatient (IN) | payer OTHER, MEDICARE ==
[~2016-09-01] VITALS: Ht 180.3 cm; Wt 70.6 kg
[~2016-09-01 21:27] MED LIST changes: +ACYC400T PO; +AMOX500T PO; -ASPI325T PO; +CASC450C PO; +CODCAP PO; +CURCPOW PO; +FERR325T PO; -GABA300C3 PO; +GABA600T PO; -GARL500C5 PO; -GLUC1CAP14 PO; +GLUCTAB32 PO; -ICAPCAP; -KETO2%T TOP; +OMEP20CA2 PO; -OMEP20TA39 PO; +PYRI100T4 PO; -SENN1TAB11 PO; -VITA10002 PO; -VITA100T55 PO; +VITAMIN B PO; -ZOCO40TA PO; -ZOVI200C24 PO; +[UNRECOGNIZED DRUG - OTHER] PO
[2016-09-01 21:40] VITALS: BP 117/67; PULSE 132; RESP 18; TEMP 103.1; O2SAT 95
[2016-09-01 22:30] VITALS: BP 123/70; PULSE 121; RESP 19; TEMP 99.7; O2SAT 95
[2016-09-01] MEDS ORDERED: LACTCAP8 PO (22:52)
[2016-09-01] MEDS ORDERED: VANCOMYCIN INJ 1,000 MG in SODIUM CHLOR 0.9% 250 ML INJ 250 ML IV ONE (23:45)
[2016-09-01] MEDS ORDERED: PIPERACIL-TAZO 4.5 GM PREMIX 100 ML IV ONE (23:45)
[2016-09-01] MEDS ORDERED: SODIUM CHLOR 0.9% 1000 ML INJ 1,000 ML IV ONE (23:45)
--- NOTE | 2016-09-01 23:53 | PD ---
HPI Chief Complaint: Fever Time Seen by Provider: 22:48 Travel History International Travel<30 days: No Contact w/Intl Traveler<30days: No Traveled to known affect area: No History of Present Illness HPI 71-year-old male presents to the emergency department for fever chills cough and difficulty with urination. Patient started with symptoms evening which has continued throughout today and into this evening. Patient was seen by his primary care provider Dr. Carr who gave him an injection of Rocephin this afternoon as well as a prescription for Augmentin to start tomorrow. Due to ongoing fever decided to bring him to the emergency room tonight. 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 Patient had sepsis during his hospitalization in [place] January 2016 and as recently as June 2016 sepsis with pyelonephritis. Patient has a nonproductive cough. Patient denies any headache sore throat earache chest pain pleuritic pain shortness of breath abdominal pain has had one episode of vomiting no coffee-ground emesis no hematemesis no diarrhea no abdominal pain no flank pain no skin rash joint pain or swelling. Patient reportedly had fever 10 4F at home. Patient was given acetaminophen prior to arrival to the emergency department. PFSH Past Medical History Narrative Medical Bladder cancer status post bladder removal and neobladder status post chemotherapy; dyslipidemia CVA diabetes hypertension sepsis pyelonephritis herniorrhaphy neck surgery; no tobacco use; nursing notes reviewed Blood Disorders: No Heart Rhythm Problems: Yes Cancer: Yes (BLADDER) Cardiovascular Problems: Yes High Cholesterol: Yes Chemotherapy: Yes (06/14/16) Chest Pain: No Congestive Heart Failure: No Cerebrovascular Accident: Yes (X 3 TIA) Diabetes: Yes Patient Takes Glucophage: No Diminished Hearing: No Endocrine: Yes Genitourinary: No Hypertension: No Implanted Vascular Access Dvce: Yes Neurologic: Yes (tia 2003 ) Psychiatric: No Respiratory: No Thyroid Disease: No Tetanus Vaccination: > 5 Years Influenza Vaccination: No Past Surgical History Abdominal Surgery: Yes (HERNIA) Body Medical Devices: titanum in neck, 5 inplants in teeth Cardiac Surgery: Yes Genitourinary Surgery: Yes (BLADDER RECONSTRUCTION) Tonsillectomy: Yes Other Surgery: Yes (tonsilectomy, quad hernia, cervical fusion, digenertive dics ) Family History Family Hypercholesterolemia: Yes Social History Alcohol Use: No (QUIT 1990) Tobacco Use: No (QUIT 1999 ) Substance Use: Yes Allergies-Medications (Allergen,Severity, Reaction): Coded Allergies: Sulfa (Verified Allergy, Severe, RASH/HIVES/ITCHING, 09/01/16) Lortab (Verified Allergy, Mild, THROWS UP, 09/01/16) Oxycodone (Verified Allergy, Mild, THROWS UP, 09/01/16) Reported Meds & Prescriptions Reported Meds & Active Scripts Active Reported Probiotic (Lactobacillus Acidophilus) 1 Cap Cap 2 Cap PO TIDAC [Vit Code Mens] 2 Tab PO BID Ferrous Sulfate 325 Mg Tab 650 Mg PO DAILY Omeprazole 20 Mg Cap 20 Mg PO DAILY Glucosamine Chondroitin & [id number] mg (Eaghzvlhfdt-Nhbsnvkyukc-Ie Cho) 1 Tab Tab 2 Tab PO BID Gabapentin 600 Mg Tab 1,200 Mg PO TID [Vitamin B -12 [place]] 1,000 Mg PO DAILY Acyclovir 400 Mg Tab 400 Mg PO BID Review of Systems Except as stated in HPI: all other systems reviewed are Neg General / Constitutional: Positive: Fever, Chills HENT: No: Congestion Cardiovascular: No: Palpitations Respiratory: Positive: Cough, No: Shortness of Breath Gastrointestinal: Positive: Vomiting (x1), No: Nausea, Diarrhea, Abdominal Pain Genitourinary: Positive: Decreased Urinary Output, No: Dysuria Musculoskeletal: No: Myalgias, Arthralgias Skin: No Rash Neurologic: Positive: Weakness, No: Dizziness, Syncope, Focal Abnormalities, Coordination Problem Psychiatric: No: Anxiety Endocrine: No: Heat Intolerance Hematologic/Lymphatic: No: Lymph Node Enlargement Physical Exam Narrative GENERAL: Well-developed well-nourished male in no acute distress no respiratory distress; GCS 15 SKIN: Warm and dry. HEAD: Normocephalic. EYES: No scleral icterus. No injection or drainage. NECK: Supple, trachea midline. No JVD or lymphadenopathy. CARDIOVASCULAR: Regular rate and rhythm without murmurs, gallops, or rubs. RESPIRATORY: Breath sounds equal bilaterally. No accessory muscle use. GASTROINTESTINAL: Abdomen soft, non-tender, nondistended. MUSCULOSKELETAL: No cyanosis, or edema. BACK: Nontender without obvious deformity. No CVA tenderness. Data Data Last Documented VS Vital Signs Date Time Temp Pulse Resp B/P Pulse Ox O2 Delivery O2 Flow Rate FiO2 09/02/16 00:24 100.5 109 18 102/51 95 Room Air Orders Sodium Chlor 0.9% 1000 Ml Inj (Ns 1000 M (09/01/16 23:45) Complete Blood Count With Diff (09/01/16 23:43) Comprehensive Metabolic Panel (09/01/16 23:43) Prothrombin Time / Inr (Pt) (09/01/16 23:43) Act Partial Throm Time (Ptt) (09/01/16 23:43) Lactic Acid Sepsis Protocol (09/01/16 23:43) Magnesium (Mg) (09/01/16 23:43) Phosphorus (Po4) (09/01/16 23:43) Lipase (09/01/16 23:43) Urinalysis - C+S If Indicated (09/01/16:43) Blood Culture (09/01/16 23:43) Blood Glucose (09/01/16 23:43) Ecg Monitoring (09/01/16 23:43) Iv Access Insert/Monitor (09/01/16:43) Oximetry (09/01/16 23:43) Oxygen Administration (09/01/16 23:43) Vancomycin Inj (Vancomycin Inj) (09/01/16 23:45) Piperacil-Tazo 4.5 Gm Premix (Zosyn 4.5 (09/01/16 23:45) Chest, Single Ap (09/01/16 ) Urine Culture (09/01/16 22:55) Sodium Chlor 0.9% 1000 Ml Inj (Ns 1000 M (09/02/16 01:00) Ondansetron Inj (Zofran Inj) (09/02/16 01:04) Admit Order (Ed Use Only) (09/02/16 ) ^ Saline Lock (09/02/16 01:05) Resp Oxygen Tito C Titrat 1-4 L (09/02/16 ) Notify Dr: Other (09/02/16 01:05) Sodium Chloride 0.9% Flush (Ns Flush) (09/02/16 09:00) Sodium Chloride 0.9% Flush (Ns Flush) (09/02/16 01:15) Ondansetron Inj (Zofran Inj) (09/02/16 01:15) Sodium Chlor 0.9% 1000 Ml Inj (Ns 1000 M (09/02/16 01:15) Acetaminophen (Tylenol) (09/02/16 01:15) Labs Laboratory Tests Test 09/01/16 09/01/16 09/01/16 22:50 22:55 23:55 White Blood Count 9.3 TH/MM3 Red Blood Count 3.20 MIL/MM3 Hemoglobin 9.9 GM/DL Hematocrit 30.3 % Mean Corpuscular Volume 94.8 FL Mean Corpuscular Hemoglobin 31.0 PG Mean Corpuscular Hemoglobin 32.7 % Concent Red Cell Distribution Width 18.4 % Platelet Count 186 TH/MM3 Mean Platelet Volume 7.5 FL Neutrophils (%) (Auto) % Lymphocytes (%) (Auto) % Monocytes (%) (Auto) % Eosinophils (%) (Auto) % Basophils (%) (Auto) % Neutrophils # (Auto) TH/MM3 Lymphocytes # (Auto) TH/MM3 Monocytes # (Auto) TH/MM3 Eosinophils # (Auto) TH/MM3 Basophils # (Auto) TH/MM3 CBC Comment AUTO DIFF Differential Total Cells 100 Counted Neutrophils % (Manual) 76 % Band Neutrophils % 5 % Lymphocytes % 6 % Monocytes % 13 % Neutrophils # (Manual) 7.5 TH/MM3 Differential Comment FINAL DIFF MANUAL Platelet Estimate NORMAL Platelet Morphology Comment NORMAL Prothrombin Time 11.2 SEC Prothromb Time International 1.0 RATIO Ratio Activated Partial 33.0 SEC Thromboplast Time Sodium Level 135 MEQ/L Potassium Level 4.3 MEQ/L Chloride Level 97 MEQ/L Carbon Dioxide Level 26.9 MEQ/L Anion Gap 11 MEQ/L Blood Urea Nitrogen 28 MG/DL Creatinine 1.70 MG/DL Estimat Glomerular Filtration 40 ML/MIN Rate Random Glucose 186 MG/DL Calcium Level 8.5 MG/DL Phosphorus Level 2.4 MG/DL Magnesium Level 1.9 MG/DL Total Bilirubin 0.3 MG/DL Aspartate Amino Transf 19 U/L (AST/SGOT) Alanine Aminotransferase 20 U/L (ALT/SGPT) Alkaline Phosphatase 111 U/L Total Protein 7.4 GM/DL Albumin 3.1 GM/DL Lipase 132 U/L Urine Color YELLOW Urine Turbidity CLOUDY Urine pH 6.0 Urine Specific [place] 1.012 Urine Protein 30 mg/dL Urine Glucose (UA) NEG mg/dL Urine Ketones NEG mg/dL Urine Occult Blood SMALL Urine Nitrite NEG Urine Bilirubin NEG Urine Leukocyte Esterase MOD Urine RBC 10-14 /hpf Urine WBC INNUM /hpf Urine WBC Clumps MOD Urine Squamous Epithelial 0-5 /hpf Cells Urine Bacteria MOD /hpf Microscopic Urinalysis Comment CULTURE INDICATED Lactic Acid Level 1.1 mmol/L MDM Medical Decision Making Medical Screen Exam Complete: Yes Emergency Medical Condition: Yes Medical Record Reviewed: Yes Interpretation(s) Vital Signs Date Time Temp Pulse Resp B/P Pulse Ox O2 Delivery O2 Flow Rate FiO2 09/01/16 22:30 99.7 121 19 123/70 95 Room Air 09/01/16 22:30 Room Air 09/01/16 21:40 103.1 132 18 117/67 95 Last Impressions Chest X-Ray 09/01/16 0000 Signed Impressions: Service Date/Time: Friday, September 02, 2016 00:09 - CONCLUSION: 1. Cardiomegaly. No acute pulmonary disease. Torsten Gan MD CBC & BMP Diagram 09/01/16 22:50 Differential Diagnosis Sepsis, UTI, pyelonephritis, pneumonia Narrative Course Patient placed on monitor and storage bin tender IV access obtained normal saline bolus administered along with Zosyn 4.5 g IV piggyback and vancomycin 1 g IV piggyback Plan will be to admit patient for sepsis suspect source as urine versus respiratory based on patient's symptoms and history At 12:53 PM patient resting comfortably aware that urinalysis is markedly abnormal and that he needs to be admitted due to his presentation with fever or tachycardia and obvious source of infection for sepsis. Critical Care Narrative Aggregate critical care time was 35 minutes. Time to perform other separately billable procedures was not included in the critical care time. My time did not include minutes spent treating any other patients simultaneously or on activities that did not directly contribute to the patient's treatment. The services I provided to this patient were to treat and/or prevent clinically significant deterioration that could result in: Septic shock, respiratory failure, I provided critical care services requiring my management, as noted below: Chart data review, documentation time, medication orders and management, vital sign assessments/reviewing monitor data, ordering and reviewing lab tests, ordering and interpreting/reviewing x-rays and diagnostic studies, care of the patient and discussion of the patient with the admitting physicians. Sepsis Criteria SIRS Criteria (2 or more): Temp > 100.9 or < 96.8, Heart rate over 90 Sepsis Criteria (SIRS+source): Infect source susp/known Physician Communication Physician Communication discussed with and accepted by Dr Mullen for admission Diagnosis Primary Impression: Sepsis Additional Impressions: UTI (urinary tract infection) DELORES (acute kidney injury) Admitting Information Admitting Physician Requests: Admit Jia Beckwith MD Sep 01, 2016 23:52
[2016-09-02] VITALS (14 sets, daily range): BP systolic 102–117; BP diastolic 51–75; PULSE 82–109; RESP 18–20; TEMP 97.2–100.5; O2SAT 95–99
[2016-09-02 00:02] LABS: BLOOD, URINE SMALL (NEG); GLUCOSE,URINE NEG (NEG); KETONE, URINE NEG (NEG); NITRITE,URINE NEG (NEG)
[2016-09-02 00:04] LABS: HEMATOCRIT 30.3 % (39.0-51.0); MEAN CELL VOLUME 94.8 FL (80.0-100.0); MEAN CORPUSCULAR HGB CONC 32.7 % (32.0-36.0); PLATELET COUNT 186 TH/MM3 (150-450); RED CELL DISTRIBUTION WIDTH 18.4 % (11.6-17.2); WHITE BLOOD COUNT 9.3 TH/MM3 (4.0-11.0)
[2016-09-02 00:11] LABS: CHLORIDE 97 MEQ/L (98-107); HEMO FLAGS AUTO DIFF; POTASSIUM 4.3 MEQ/L (3.5-5.1); SODIUM (NA) 135 MEQ/L (136-145)
[2016-09-02 00:16] LABS: ANION GAP 11 MEQ/L (5-15); BICARBONATE 26.9 MEQ/L (21.0-32.0); BLOOD UREA NITROGEN 28 MG/DL (7-18); MAGNESIUM 1.9 MG/DL (1.5-2.5)
[2016-09-02 00:17] LABS: PROTHROMBIN TIME - PATIENT 11.2 SEC (9.8-11.6)
[2016-09-02 00:18] LABS: ALT (GPT) 20 U/L (12-78); AST (GOT) 19 U/L (15-37); GLOMERULAR FILTRATION RATE 40 ML/MIN (>89)
[2016-09-02 00:19] LABS: URINE COLOR YELLOW (YELLW/STRAW); WBC, URINE INNUM /hpf (0-5)
[2016-09-02 00:20] LABS: BACTERIA, URINE MOD /hpf; COMMENT (UR) CULTURE INDICATED; CULTURE IF INDICATED CULTURE INDICATED; SQUAMOUS EPITHELIAL CELL URINE 0-5 /hpf (0-5)
[2016-09-02 00:20] LABS: TOTAL BILIRUBIN ADULT 0.3 MG/DL (0.2-1.0)
[2016-09-02 00:21] LABS: ALKALINE PHOSPHATASE 111 U/L (45-117)
--- NOTE | 2016-09-02 00:21 | RADHPO ---
EXAM DATE/TIME: 09/02/2016 00:09 [facility] COMPARISON: CHEST SINGLE AP, June 16, 2016, 9:26. INDICATIONS : Fever. MEDICAL HISTORY : Cardiovascular disease. Carcinoma, bladder. Neobladder SURGICAL HISTORY : Umbilical hernia repair. Neobladder, Infusaport ENCOUNTER: Initial ACUITY: 2 days PAIN SCORE: 5/10 LOCATION: Bilateral chest FINDINGS: The cardiac silhouette is enlarged in transverse diameter. The aortic knob is prominent with tortuosi ty of the descending thoracic aorta. [id number] is in place via right internal jugular approach wi th its tip in the superior vena cava. There is parenchymal scarring bilaterally. The lungs are free o f acute parenchymal opacity. No effusions are identified. CONCLUSION: 1. Cardiomegaly. No acute pulmonary disease. Torsten Gan MD on September 02, 2016 at 0:19 Board Certified Radiologist. This report was verified electronically.
[2016-09-02 00:34] LABS: BANDS 5 % (0-6); NEUTROPHIL # MANUAL DIFF 7.5 TH/MM3 (1.8-7.7); PLATELET ESTIMATE SMEAR NORMAL (NORMAL); PLATELET MORPHOLOGY NORMAL (NORMAL); POLYS (SEG NEUTROPHILS) 76 % (16-70); SCAN/DIFF FINAL DIFF MANUAL; WBC DIFF SAMPLE 100
[2016-09-02] MEDS ORDERED: SODIUM CHLOR 0.9% 1000 ML INJ 1,000 ML IV ONE (01:00)
[2016-09-02] MEDS ORDERED: ONDANSETRON HCL 4 MG/2 ML VIAL ONE (01:04)
[2016-09-02] MEDS ORDERED: BISACODYL 10 MG SUPP RECTAL PRN (01:15)
[2016-09-02] MEDS ORDERED: ACETAMINOPHEN 325 MG TAB PO ONE (01:15)
[2016-09-02] MEDS ORDERED: ONDANSETRON HCL 4 MG/2 ML VIAL IV PUSH ONE (01:15)
[2016-09-02] MEDS ORDERED: SODIUM CHLORIDE 0.9% FLUSH 10 ML FLUSH IVF PRN (01:15)
[2016-09-02] MEDS ORDERED: ONDANSETRON HCL 4 MG/2 ML VIAL IVP PRN (01:15)
[2016-09-02] MEDS ORDERED: SODIUM CHLORIDE 0.9% FLUSH 10 ML FLUSH IV FLUSH PRN (01:15)
[2016-09-02] MEDS ORDERED: MORPHINE SULFATE 4 MG/ML INJ IV PRN (01:15)
[2016-09-02] MEDS: SODIUM CHLOR 0.9% 1000 ML INJ 1,000 ML IV SCH ×5 (01:58→20:51)
[2016-09-02] MEDS ORDERED: DEXTROSE 50% IN WATER 50 ML VIAL(D50) IV PUSH PRN (06:45)
[2016-09-02] MEDS ORDERED: GLUCAGON 1 MG/ML VIAL OTHER PRN (06:45)
[2016-09-02] MEDS: INSULIN ASPART SUPPLEMENTAL SCALE SQ SCH ×4 (07:00→21:00)
[2016-09-02] MEDS: LACTOBACILLUS ACIDOPHILUS TAB PO SCH ×3 (08:57→16:49)
[2016-09-02] MEDS: ACYCLOVIR 200 MG CAP PO SCH ×2 (08:58→20:50)
[2016-09-02] MEDS: PANTOPRAZOLE SOD 20 MG DELAYED RELEASE TAB PO SCH (08:58)
[2016-09-02] MEDS: GABAPENTIN 300 MG CAP PO SCH ×2 (08:58→20:50)
[2016-09-02] MEDS: FERROUS SULFATE 325 MG (65 MG ELEMENTAL IRON) TAB PO SCH (08:59)
[2016-09-02] MEDS: SODIUM CHLORIDE 0.9% FLUSH 10 ML FLUSH IV FLUSH SCH ×4 (09:00→21:00)
[2016-09-02] MEDS: ACETAMINOPHEN 325 MG TAB PO PRN ×2 (09:04→19:05)
--- NOTE | 2016-09-02 10:30 | HHI.HP ---
[facility] Joel Carr MD Admission Diagnosis Sepsis; uti; renal insufficiency Diagnoses: Chief Complaint: Fever Travel History International Travel<30 Days: No Contact w/Intl Traveler <30 Da: No Traveled to Known Affected Are: No Sepsis Criteria SIRS Criteria (2 or more): Temp > 100.9 or < 96.8, Heart rate over 90 Sepsis Criteria (SIRS+source): Infect source susp/known Criteria Outcome: Meets sepsis criteria History of Present Illness This is a 71-year-old male who presented to the emergency department complaining of fever, chills, nonproductive cough, dysuria and headache for one day. He was seen by his PCP and received an injection of Rocephin yesterday and was prescribed Augmentin but because of ongoing fever his decided to bring him to the emergency room. 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 Also has history of sepsis secondary to UTI. He denies shortness of breath, chest pain, abdominal pain, constipation and diarrhea. He has nausea and vomited 1. He also has improving frontal sharp headache for the past 2 days. No visual changes, neck pain, numbness and focal weakness. In the emergency department, he received Zosyn and vancomycin. Review of Systems Constitutional: COMPLAINS OF: Fever, Chills, DENIES: Diaphoretic episodes, Fatigue, Weight gain, Weight loss, Dizziness, Change in appetite, Night Sweats Endocrine: DENIES: Heat/cold intolerance, Polydipsia, Polyuria, Polyphagia Eyes: DENIES: Blurred vision, Diplopia, Vision loss, Photosensitivity Ears, nose, mouth, throat: DENIES: Tinnitus, Vertigo, Throat pain, Hoarseness, Epistaxis, Odynophagia Respiratory: COMPLAINS OF: Cough, DENIES: Wheezing, Hemoptysis, Sputum production, Shortness of breath Cardiovascular: DENIES: Chest pain, Palpitations, Syncope, Dyspnea on Exertion , PND, Lower Extremity Edema, Orthopnea, Claudication Gastrointestinal: COMPLAINS OF: Nausea, Vomiting, DENIES: Abdominal pain, Black stools, Bloody stools, Constipation, Diarrhea, Difficulty Swallowing, Anorexia Genitourinary: COMPLAINS OF: Dysuria, DENIES: Urinary frequency, Urinary incontinence, Urgency, Hematuria, Nocturia, Penile Discharge Integumentary: DENIES: Rash Neurologic: COMPLAINS OF: Headache, DENIES: Localized weakness, Seizures, Tremor, Poor Balance Psychiatric: DENIES: Anxiety, Confusion, Depression, Hallucinations, Agitation , Suicidal Ideation, Homicidal Ideation, Delusions Past Family Social History Past Medical History As previously mentioned history of CVA, hyperlipidemia, hypertension denies history of diabetes mellitus Past Surgical History As previously mentioned hernia repair and neck surgery 2 Reported Medications Probiotic (Lactobacillus Acidophilus) 1 Cap Cap 2 Cap PO TIDAC [Vit Code Mens] 2 Tab PO BID Ferrous Sulfate 325 Mg Tab 650 Mg PO DAILY Omeprazole 20 Mg Cap 20 Mg PO DAILY Glucosamine Chondroitin & [phone] mg (Otzssogxued-Uqaebbpoeug-Af Cho) 1 Tab Tab 2 Tab PO BID Gabapentin 600 Mg Tab 1,200 Mg PO TID [Vitamin B -12 [place]] 1,000 Mg PO DAILY Acyclovir 400 Mg Tab 400 Mg PO BID Allergies: Coded Allergies: Sulfa (Verified Allergy, Severe, RASH/HIVES/ITCHING, 09/01/16) Lortab (Verified Allergy, Mild, THROWS UP, 09/01/16) Oxycodone (Verified Allergy, Mild, THROWS UP, 09/01/16) Family History Thyroid cancer Social History Does not smoke or drink lives with his Physical Exam Vital Signs Vital Signs Date Time Temp Pulse Resp B/P Pulse Ox O2 Delivery O2 Flow Rate FiO2 09/02/16 08:12 98 21 09/02/16 08:00 97.6 82 18 113/75 98 09/02/16 06:26 97.2 86 18 109/61 99 09/02/16 04:20 83 09/02/16 04:11 96 18 96 09/02/16 04:10 96 18 106/55 97 Room Air 09/02/16 03:01 96 18 111/55 96 Room Air 09/02/16 02:02 95 18 109/53 97 Room Air 09/02/16 01:49 97 21 09/02/16 00:24 100.5 109 18 102/51 95 Room Air 09/01/16 22:30 99.7 121 19 123/70 95 Room Air 09/01/16 22:30 Room Air 09/01/16 21:40 103.1 132 18 117/67 95 Physical Exam GENERAL: This is a well-nourished, well-developed patient, in no apparent distress. SKIN: No rashes, ecchymoses or lesions. Cool and dry. HEAD: Atraumatic. Normocephalic. No temporal or scalp tenderness. EYES: Pupils equal round and reactive. Extraocular motions intact. No scleral icterus. No injection or drainage. ENT: Nose without bleeding, purulent drainage or septal hematoma. Throat without erythema, tonsillar hypertrophy or exudate. Uvula midline. Airway patent. NECK: Trachea midline. No JVD or lymphadenopathy. Supple, nontender, no meningeal signs. CARDIOVASCULAR: Regular rate and rhythm without murmurs, gallops, or rubs. RESPIRATORY: Clear to auscultation. Breath sounds equal bilaterally. No wheezes , rales, or rhonchi. GASTROINTESTINAL: Abdomen soft, non-tender, nondistended. No CVA tenderness No guarding. MUSCULOSKELETAL: Extremities without clubbing, cyanosis, or edema. No joint tenderness, effusion, or edema noted. No calf tenderness. Negative Homans sign bilaterally. NEUROLOGICAL: Awake and alert. Cranial nerves II through XII intact. Motor and sensory grossly within normal limits. Five out of 5 muscle strength in all muscle groups. Normal speech. Laboratory Laboratory Tests Test 09/01/16 09/01/16 09/01/16 22:50 22:55 23:55 White Blood Count 9.3 Red Blood Count 3.20 Hemoglobin 9.9 Hematocrit 30.3 Mean Corpuscular Volume 94.8 Mean Corpuscular Hemoglobin 31.0 Mean Corpuscular Hemoglobin 32.7 Concent Red Cell Distribution Width 18.4 Platelet Count 186 Mean Platelet Volume 7.5 Neutrophils (%) (Auto) Lymphocytes (%) (Auto) Monocytes (%) (Auto) Eosinophils (%) (Auto) Basophils (%) (Auto) Neutrophils # (Auto) Lymphocytes # (Auto) Monocytes # (Auto) Eosinophils # (Auto) Basophils # (Auto) CBC Comment AUTO DIFF Differential Total Cells 100 Counted Neutrophils % (Manual) 76 Band Neutrophils % 5 Lymphocytes % 6 Monocytes % 13 Neutrophils # (Manual) 7.5 Differential Comment FINAL DIFF MANUAL Platelet Estimate NORMAL Platelet Morphology Comment NORMAL Prothrombin Time 11.2 Prothromb Time International 1.0 Ratio Activated Partial 33.0 Thromboplast Time Sodium Level 135 Potassium Level 4.3 Chloride Level 97 Carbon Dioxide Level 26.9 Anion Gap 11 Blood Urea Nitrogen 28 Creatinine 1.70 Estimat Glomerular Filtration 40 Rate Random Glucose 186 Calcium Level 8.5 Phosphorus Level 2.4 Magnesium Level 1.9 Total Bilirubin 0.3 Aspartate Amino Transf 19 (AST/SGOT) Alanine Aminotransferase 20 (ALT/SGPT) Alkaline Phosphatase 111 Total Protein 7.4 Albumin 3.1 Lipase 132 Urine Color YELLOW Urine Turbidity CLOUDY Urine pH 6.0 Urine Specific [place] 1.012 Urine Protein 30 Urine Glucose (UA) NEG Urine Ketones NEG Urine Occult Blood SMALL Urine Nitrite NEG Urine Bilirubin NEG Urine Leukocyte Esterase MOD Urine RBC 10-14 Urine WBC INNUM Urine WBC Clumps MOD Urine Squamous Epithelial 0-5 Cells Urine Bacteria MOD Microscopic Urinalysis Comment CULTURE INDICATED Lactic Acid Level 1.1 Date/Time Procedure Status Source Growth 09/01/16 22:55 Urine Culture Received Urine Clean Catch Pending 09/01/16 22:55 Aerobic Blood Culture Received Blood Peripheral Pending 09/01/16 22:55 Anaerobic Blood Culture Received Blood Peripheral Pending Result Diagram: 09/01/16 2250 09/01/16 2250 Assessment and Plan Assessment and Plan This is a 71-year-old male with fever, chills, nonproductive cough, dysuria and headache for one day. He has abnormal UA. 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 Sepsis with tachycardia and fever. We'll monitor urine and blood cultures Catheter associated UTI with failed outpatient therapy. Continue Rocephin and obtain records to review previous urine culture reports Acute kidney injury with history of chronic kidney disease stage III secondary to UTI. Avoid nephrotoxins. Continue IV hydration. Repeat BMP and magnesium in the morning Headache. He is nonfocal. Likely related to sepsis. We'll continue to monitor consider head CT Chronic medical conditions of CVA, hyperlipidemia, hypertension and stable continue outpatient medications as appropriate DVT prophylaxis with SCD and subcutaneous heparin Discussed Condition With pt Physician Certification 2 Midnight Certification Type: Admission for Inpatient Services Order for Inpatient Services The services are ordered in accordance with Medicare regulations or non- Medicare payer requirements, as applicable. In the case of services not specified as inpatient-only, they are appropriately provided as inpatient services in accordance with the 2-midnight benchmark. Estimated LOS (days): 2 days is the estimated time the patient will need to remain in the hospital, assuming treatment plan goals are met and no additional complications. Post-Hospital Plan: Not yet determined Ilya Rodriguez MD Sep 02, 2016 10:30
[2016-09-02] MEDS: HEPARIN SODIUM - SQ 10,000 UNITS/ML VIAL SQ SCH (20:50)
[2016-09-02] MEDS: traMADol HCL 50 MG TAB PO PRN (21:02)
[2016-09-02] MEDS ORDERED: cefTRIAXone INJ 1,000 MG in SODIUM CHLORIDE 0.9% INJ 100 ML IV SCH (23:00)
[2016-09-03] VITALS: BP 119/61; PULSE 76; RESP 20; TEMP 96.8; O2SAT 97
[2016-09-03] MEDS: traMADol HCL 50 MG TAB PO PRN ×4 (03:19→15:32)
[2016-09-03 04:00] VITALS: BP 99/62; PULSE 84; RESP 18; TEMP 97.3; O2SAT 95
[2016-09-03] MEDS: INSULIN ASPART SUPPLEMENTAL SCALE SQ SCH (06:41)
[2016-09-03] MEDS: SODIUM CHLOR 0.9% 1000 ML INJ 1,000 ML IV SCH (07:57)
[2016-09-03 08:00] VITALS: BP 135/73; PULSE 81; RESP 18; TEMP 97.5; O2SAT 94
[2016-09-03 08:45] LABS: AUTOMATED NEUTROPHIL # 2.4 TH/MM3 (1.8-7.7); BASOPHIL % 0.2 % (0.0-2.0); EOSINOPHIL # 0.1 TH/MM3 (0-0.4); EOSINOPHIL % 2.4 % (0.0-4.0); HEMATOCRIT 25.5 % (39.0-51.0); HEMO FLAGS DIFF FINAL; LYMPH % 19.5 % (9.0-44.0); LYMPHOCYTE # 0.8 TH/MM3 (1.0-4.8); MEAN CELL VOLUME 94.8 FL (80.0-100.0); MEAN CORPUSCULAR HEMOGLOBIN 30.6 PG (27.0-34.0); MEAN CORPUSCULAR HGB CONC 32.3 % (32.0-36.0); MONO % 14.9 % (0.0-8.0); PLATELET COUNT 145 TH/MM3 (150-450); RED BLOOD COUNT 2.69 MIL/MM3 (4.50-5.90); RED CELL DISTRIBUTION WIDTH 18.9 % (11.6-17.2); WHITE BLOOD COUNT 3.9 TH/MM3 (4.0-11.0)
[2016-09-03] MEDS: SODIUM CHLORIDE 0.9% FLUSH 10 ML FLUSH IV FLUSH SCH ×2 (09:00)
[2016-09-03 09:02] LABS: ALKALINE PHOSPHATASE 92 U/L (45-117); ALT (GPT) 16 U/L (12-78); ANION GAP 11 MEQ/L (5-15); AST (GOT) 18 U/L (15-37); BICARBONATE 25.1 MEQ/L (21.0-32.0); BLOOD UREA NITROGEN 18 MG/DL (7-18); CHLORIDE 108 MEQ/L (98-107); GLOMERULAR FILTRATION RATE 60 ML/MIN (>89); POTASSIUM 3.9 MEQ/L (3.5-5.1); SODIUM (NA) 144 MEQ/L (136-145); TOTAL BILIRUBIN ADULT 0.1 MG/DL (0.2-1.0)
[2016-09-03] MEDS: LACTOBACILLUS ACIDOPHILUS TAB PO SCH ×3 (09:29→15:32)
[2016-09-03] MEDS: FERROUS SULFATE 325 MG (65 MG ELEMENTAL IRON) TAB PO SCH (09:29)
[2016-09-03] MEDS: GABAPENTIN 300 MG CAP PO SCH (09:30)
[2016-09-03] MEDS: ACYCLOVIR 200 MG CAP PO SCH (09:30)
[2016-09-03] MEDS: HEPARIN SODIUM - SQ 10,000 UNITS/ML VIAL SQ SCH (09:30)
[2016-09-03] MEDS: PANTOPRAZOLE SOD 20 MG DELAYED RELEASE TAB PO SCH (09:30)
[2016-09-03] MEDS ORDERED: ULTR50TA5 PO (10:54)
--- NOTE | 2016-09-03 10:55 | HHI.DCPOC ---
Discharge Care Plan Diagnosis: (1) Sepsis (2) UTI (urinary tract infection) Your Health Problems Are: Difficulty with ADL Exercise Tolerance Goals to Promote Your Health * To prevent worsening of your condition and complications * To maintain your health at the optimal level Directions to Meet Your Goals Take your medications as prescribed Follow your dietary instruction Follow activity as directed Keep your appointments as scheduled Take your immunizations and boosters as scheduled If your symptoms worsen call your PCP, if no PCP go to Urgent Care Center or Emergency Room Smoking is Dangerous to Your Health. Avoid second hand smoke Call the 24-hour hour crisis hotline for domestic abuse at Ilya Rodriguez MD Sep 03, 2016 10:55
--- NOTE | 2016-09-03 10:57 | HHI.PR ---
Subjective Remarks Follow-up sepsis. States his weakness is much better ambulating in the hallway. Patient was seen with his who had several questions which I answered to the best of my ability. Headache is improving after receiving, though. He had unremarkable head CT 2 months ago ordered by his neurologist. Patient wants to go home and will be discharged later today. Discussed with RN Objective Vitals Vital Signs Date Time Temp Pulse Resp B/P Pulse Ox O2 Delivery O2 Flow Rate FiO2 09/03/16 08:00 97.5 81 18 135/73 94 09/03/16 04:00 97.3 84 18 99/62 95 09/03/16 00:00 96.8 76 20 119/61 97 09/02/16 20:00 102 09/02/16 20:00 98.9 105 20 117/64 97 09/02/16 19:50 97 21 09/02/16 16:00 97.2 84 18 110/67 98 09/02/16 12:00 98.0 84 18 113/64 98 I/O 09/02/16 09/02/16 09/02/16 09/03/16 09/03/16 09/03/16 07:00 15:00 23:00 07:00 15:00 23:00 Intake Total 1425 ml 825 ml 1940 ml 240 ml Balance 1425 ml 825 ml 1940 ml 240 ml Intake Oral 825 ml 240 ml 240 ml IV Total 1425 ml 1700 ml # Voids 3 2 2 # Bowel Movements 2 0 0 Result Diagram: 09/03/16 0800 09/03/16 0800 Imaging Last Impressions Chest X-Ray 09/01/16 0000 Signed Impressions: Service Date/Time: Friday, September 02, 2016 00:09 - CONCLUSION: 1. Cardiomegaly. No acute pulmonary disease. Torsten Gan MD Objective Remarks GENERAL: This is a well-nourished, well-developed patient, in no apparent distress. SKIN: No rashes, ecchymoses or lesions. Cool and dry. HEAD: Atraumatic. Normocephalic. No temporal or scalp tenderness. EYES: Pupils equal round and reactive. Extraocular motions intact. No scleral icterus. No injection or drainage. ENT: Nose without bleeding, purulent drainage or septal hematoma. Throat without erythema, tonsillar hypertrophy or exudate. Uvula midline. Airway patent. NECK: Trachea midline. No JVD or lymphadenopathy. Supple, nontender, no meningeal signs. CARDIOVASCULAR: Regular rate and rhythm without murmurs, gallops, or rubs. RESPIRATORY: Clear to auscultation. Breath sounds equal bilaterally. No wheezes , rales, or rhonchi. GASTROINTESTINAL: Abdomen soft, non-tender, nondistended. No CVA tenderness No guarding. MUSCULOSKELETAL: Extremities without clubbing, cyanosis, or edema. No joint tenderness, effusion, or edema noted. No calf tenderness. Negative Homans sign bilaterally. NEUROLOGICAL: Awake and alert. Cranial nerves II through XII intact. Motor and sensory grossly within normal limits. Five out of 5 muscle strength in all muscle groups. Normal speech. Procedures none A/P Problem List: (1) Sepsis ICD Code: A41.9 Status: Acute (2) UTI (urinary tract infection) ICD Code: N39.0 Status: Acute Assessment and Plan This is a 71-year-old male with fever, chills, nonproductive cough, dysuria and headache for one day. He has abnormal UA. 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 Sepsis with tachycardia and fever. Improved. We'll monitor urine and blood cultures negative to date Catheter associated UTI with failed outpatient therapy. Improved. Continue Rocephin and obtain records to review previous urine culture reports. Patient may start Augmentin which was prescribed prior to admission Acute kidney injury with history of chronic kidney disease stage III secondary to UTI. Avoid nephrotoxins. Improved creatinine down to 1.2 which is his baseline discontinue IV hydration. Headache. He is nonfocal. Improved this is chronic with recent negative head CT Chronic medical conditions of CVA, hyperlipidemia and hypertension. Stable continue outpatient medications as appropriate DVT prophylaxis with SCD and subcutaneous heparin Discharge Planning Discharge patient to home. He is significantly improved earlier than expected Condition on discharge: Improved Regular Diet as tolerated Ad Marlen activity no driving Rx written: Tramadol Follow-up with primary care physician in 3 days Ilya Rodriguez MD Sep 03, 2016 10:57
[2016-09-03 12:00] VITALS: BP 127/76; PULSE 81; RESP 18; TEMP 97.1; O2SAT 98
[2016-09-03] MEDS ORDERED: cefTRIAXone INJ 1,000 MG in SODIUM CHLORIDE 0.9% INJ 100 ML IV SCH (15:00)
== END 2016-09-03 17:15 | disposition home or self-care (01) | DRG 872 ==
LOC: PHED 21:27 → PHEDA 09-02 01:06 → PH3A 09-02 04:02
PROVIDERS: ADMIT Internal Medicine; ATTEND Internal Medicine
DX: A41.9 Sepsis, unspecified organism (principal); N17.9 Acute kidney failure, unspecified; E11.22 Type 2 diabetes mellitus with diabetic chronic kidney disease; N39.0 Urinary tract infection, site not specified; N18.3 Chronic kidney disease, stage 3 (moderate); I12.9 Hypertensive chronic kidney disease with stage 1 through stage 4 chronic kidney disease, or unspecified chronic kidney disease; E78.5 Hyperlipidemia, unspecified; R00.0 Tachycardia, unspecified; Z85.51 Personal history of malignant neoplasm of bladder; Z86.73 Personal history of transient ischemic attack (TIA), and cerebral infarction without residual deficits; Z92.21 Personal history of antineoplastic chemotherapy
CPT/HCPCS: 71010; 80053; 81001; 82948; 83605; 83690; 83735; 84100; 85007; 85025; 85027; 85610; 85730; 87040; 87086; 96365; 96375; J0696; J1644; J2405; J2543; J3370; J7030; J7050

== ENCOUNTER 2016-11-25 20:00 | Inpatient (IN) | payer OTHER, MEDICARE ==
[~2016-11-25] VITALS: Ht 182.9 cm; Wt 99.5 kg
[~2016-11-25 20:00] MED LIST changes: -AMOX500T PO; -CASC450C PO; -CODCAP PO; -CURCPOW PO; +LACTCAP8 PO; -OMEGCAP19 PO; -PYRI100T4 PO; +ULTR50TA5 PO
[2016-11-25 20:02] VITALS: BP 129/70; PULSE 111; RESP 16; TEMP 99.6; O2SAT 98
[2016-11-25] MEDS ORDERED: NITR100C4 PO (20:33)
[2016-11-25 20:36] VITALS: BP 102/64; PULSE 107; RESP 18; O2SAT 98
--- NOTE | 2016-11-25 20:49 | PD ---
HPI Chief Complaint: Complaint Time Seen by Provider: 20:30 Travel History International Travel<30 days: No Contact w/Intl Traveler<30days: No Traveled to known affect area: No History of Present Illness HPI 71-year-old male came to the emergency room with history of fever since yesterday and bilateral flank pain. Patient has history of bladder resection secondary to bladder cancer and a neobladder. He has had multiple UTI is and currently is on Macrobid once a day for prophylaxis. However his symptoms just started yesterday. His urologist is from [facility] in [place] he and his called the answering service today and they were asked to bring the patient to the emergency room. He is awake and answering questions appropriately. However he was tachycardic in triage. His last ibuprofen was at 5:30 PM today. No history of vomiting or diarrhea. No history of cough. PFSH Past Medical History Narrative Medical List of his past medical, surgical, social and family history was reviewed from the nursing note. Blood Disorders: No Heart Rhythm Problems: No Cancer: Yes (BLADDER) Cardiovascular Problems: No High Cholesterol: No Chemotherapy: Yes (06/14/16) Chest Pain: No Congestive Heart Failure: No Cerebrovascular Accident: Yes (X 3 TIA) Diabetes: Yes Patient Takes Glucophage: No Diminished Hearing: No Endocrine: Yes Gastrointestinal Disorders: Yes GERD: Yes Genitourinary: No Hypertension: No Implanted Vascular Access Dvce: Yes Medical other: Yes (4 uti's since september 28, 2016) Neurologic: Yes (tia 2003 ) Psychiatric: No Respiratory: No Renal Failure: Yes (LEFT KIDNEY SMALLER THAN RIGHT) Thyroid Disease: No Influenza Vaccination: No Past Surgical History Abdominal Surgery: Yes (HERNIA) Body Medical Devices: titanum in neck, 5 inplants in teeth Cardiac Surgery: Yes Genitourinary Surgery: Yes (BLADDER RECONSTRUCTION) Tonsillectomy: Yes Other Surgery: Yes (tonsilectomy, quad hernia, cervical fusion, digenertive dics ) Family History Family Hypercholesterolemia: Yes Social History Alcohol Use: No (QUIT 1990) Tobacco Use: No (QUIT 1999 ) Substance Use: Yes Allergies-Medications (Allergen,Severity, Reaction): Coded Allergies: Sulfa (Verified Allergy, Severe, RASH/HIVES/ITCHING, 11/25/16) Comments List of his allergies reviewed from the nursing note. Reported Meds & Prescriptions Reported Meds & Active Scripts Active Ultram (Tramadol HCl) 50 Mg Tab 50 Mg PO Q6H PRN Reported Probiotic (Lactobacillus Acidophilus) 1 Cap Cap 2 Cap PO TIDAC [Vit Code Mens] 2 Tab PO BID Omeprazole 20 Mg Cap 20 Mg PO DAILY Glucosamine Chondroitin & [phone] mg (Hpytgpfkvqu-Omfzljxmuha-Qm Cho) 1 Tab Tab 2 Tab PO BID Gabapentin 600 Mg Tab 1,200 Mg PO TID [Vitamin B -12 [place]] 1,000 Mg PO DAILY Acyclovir 400 Mg Tab 400 Mg PO BID Narrative Medication List of his home medications reviewed from the nursing note. Review of Systems Except as stated in HPI: all other systems reviewed are Neg Physical Exam Narrative GENERAL: Awake, alert, moderate distress SKIN: Focused skin assessment warm/dry. HEAD: Atraumatic. Normocephalic. EYES: Pupils equal and round. No scleral icterus. No injection or drainage. ENT: No nasal bleeding or discharge. Mucous membranes pink and moist. NECK: Trachea midline. No JVD. CARDIOVASCULAR: Regular rate and rhythm. No murmur appreciated. RESPIRATORY: No accessory muscle use. Clear to auscultation. Breath sounds equal bilaterally. GASTROINTESTINAL: Abdomen soft, non-tender, nondistended. Hepatic and splenic margins not palpable. Bilateral flank tenderness. MUSCULOSKELETAL: No obvious deformities. No clubbing. No cyanosis. No edema. NEUROLOGICAL: Awake and alert. No obvious cranial nerve deficits. Motor grossly within normal limits. Normal speech. PSYCHIATRIC: Appropriate mood and affect; insight and judgment normal. Data Data Last Documented VS Vital Signs Date Time Temp Pulse Resp B/P Pulse Ox O2 Delivery O2 Flow Rate FiO2 11/25/16 22:08 97.9 75 18 99/59 94 Room Air Orders Complete Blood Count With Diff (11/25/16 20:52) Comprehensive Metabolic Panel (11/25/16 20:52) Lactic Acid Sepsis Protocol (11/25/16 20:52) Urinalysis - C+S If Indicated (11/25/16 20:52) Blood Culture (11/25/16 20:52) Chest, Single Ap (11/25/16 20:52) Blood Glucose (11/25/16 20:52) Ecg Monitoring (11/25/16 20:52) Iv Access Insert/Monitor (11/25/16 20:52) Oximetry (11/25/16 20:52) Oxygen Administration (11/25/16 20:52) Piperacil-Tazo 4.5 Gm Premix (Zosyn 4.5 (11/25/16 20:52) Vancomycin Inj (Vancomycin Inj) (11/25/16 20:52) Sodium Chlor 0.9% 1000 Ml Inj (Ns 1000 M (11/25/16 20:52) Sodium Chlor 0.9% 1000 Ml Inj (Ns 1000 M (11/25/16 20:52) Sodium Chlor 0.9% 1000 Ml Inj (Ns 1000 M (11/25/16 20:52) Morphine Inj (Morphine Inj) (11/25/16 21:30) Urinary Catheter Insert/Apply (11/25/16 21:20) Urine Culture (11/25/16 21:00) Admit To Inpatient (11/25/16 ) Vital Signs (Adult) Q4H (11/25/16 22:07) Activity Oob With Assistance (11/25/16 22:07) Steam Table Associate / Telemetry .CONTINUOUS (11/25/16 22:07) Acetaminophen (Tylenol) (11/25/16 22:15) Ondansetron Inj (Zofran Inj) (11/25/16 22:15) Basic Metabolic Panel (Bmp) (11/26/16 06:00) Complete Blood Count With Diff (11/26/16 06:00) Scd Bilateral/Knee High VINCE.BID (11/25/16 22:07) Jaime Bilateral/Knee High VINCE.QSHIFT (11/25/16 22:07) Naloxone Inj (Narcan Inj) (11/25/16 22:15) Docusate Sodium-Senna (Ryann-Colace) (11/26/16 09:00) Magnesium Hydroxide Liq (Milk Of Magnesi (11/25/16 22:15) Sennosides (Senokot) (11/25/16 22:15) Bisacodyl Supp (Dulcolax Supp) (11/25/16 22:15) Lactulose Liq (Lactulose Liq) (11/25/16 22:15) Inpatient Certification (11/25/16 ) Ceftriaxone Inj (Rocephin Inj) (11/26/16 06:00) Admit Order (Ed Use Only) (11/25/16 22:12) Labs Laboratory Tests Test 11/25/16 21:00 Sodium Level 136 MEQ/L Potassium Level 3.9 MEQ/L Chloride Level 103 MEQ/L Carbon Dioxide Level 22.1 MEQ/L Anion Gap 11 MEQ/L Blood Urea Nitrogen 26 MG/DL Creatinine 1.43 MG/DL Estimat Glomerular Filtration 49 ML/MIN Rate Random Glucose 130 MG/DL Lactic Acid Level 1.2 mmol/L Calcium Level 9.1 MG/DL Total Bilirubin 0.4 MG/DL Aspartate Amino Transf 13 U/L (AST/SGOT) Alanine Aminotransferase 20 U/L (ALT/SGPT) Alkaline Phosphatase 87 U/L Total Protein 7.3 GM/DL Albumin 3.4 GM/DL White Blood Count 10.2 TH/MM3 Red Blood Count 3.91 MIL/MM3 Hemoglobin 11.5 GM/DL Hematocrit 35.2 % Mean Corpuscular Volume 90.0 FL Mean Corpuscular Hemoglobin 29.4 PG Mean Corpuscular Hemoglobin 32.6 % Concent Red Cell Distribution Width 15.4 % Platelet Count 141 TH/MM3 Mean Platelet Volume 7.6 FL Neutrophils (%) (Auto) 80.2 % Lymphocytes (%) (Auto) 10.5 % Monocytes (%) (Auto) 8.5 % Eosinophils (%) (Auto) 0.7 % Basophils (%) (Auto) 0.1 % Neutrophils # (Auto) 8.2 TH/MM3 Lymphocytes # (Auto) 1.1 TH/MM3 Monocytes # (Auto) 0.9 TH/MM3 Eosinophils # (Auto) 0.1 TH/MM3 Basophils # (Auto) 0.0 TH/MM3 CBC Comment DIFF FINAL Differential Comment Urine Color YELLOW Urine Turbidity HAZY Urine pH 7.0 Urine Specific [place] 1.012 Urine Protein TRACE mg/dL Urine Glucose (UA) NEG mg/dL Urine Ketones NEG mg/dL Urine Occult Blood SMALL Urine Nitrite POS Urine Bilirubin NEG Urine Urobilinogen LESS THAN 2.0 MG/DL Urine Leukocyte Esterase LARGE Urine RBC 6 /hpf Urine WBC 175 /hpf Urine Squamous Epithelial 1 /hpf Cells Urine Bacteria RARE /hpf Urine Mucus FEW /lpf Microscopic Urinalysis Comment CATH-CULTURE IND MDM Medical Decision Making Medical Screen Exam Complete: Yes Emergency Medical Condition: Yes Medical Record Reviewed: Yes Differential Diagnosis Sepsis, pyelonephritis, outpatient treatment failure, dehydration Narrative Course 10:01 PM blood test results of back. UA shows significant UTI. Patient does have some renal insufficiency. He is getting IV fluid and antibiotic as per sepsis protocol. Since he is an outpatient treatment failure with tachycardia I will admit him. I discussed this with the patient and his and they understand. Awaiting for the hospitalist to call back. Procedures EKG Prior to Arrival: No Diagnosis Primary Impression: Pyelonephritis Additional Impression: Failure of outpatient treatment Admitting Information Admitting Physician Requests: Admit Scripts Meperidine 50 Mg Tab50 Mg PO Q3H PRN (HEADACHE) #15 TAB Prov:Moe Madsen MD 11/28/16 Lactobacillus Acidophilus (Lactinex)1 Chew1 Tab CHEW BID #60 TAB Ref 0 Prov:Moe Madsen MD 11/28/16 Ciprofloxacin (Cipro)500 Mg Qob349 Mg PO BID #20 TAB Ref 0 Prov:Moe Madsen MD 11/28/16 Jaki Linares MD Nov 25, 2016 20:49
[2016-11-25] MEDS ORDERED: VANCOMYCIN INJ 1,000 MG in SODIUM CHLOR 0.9% 250 ML INJ 250 ML IV STA (20:52)
[2016-11-25] MEDS ORDERED: PIPERACIL-TAZO 4.5 GM PREMIX 100 ML IV STA (20:52)
[2016-11-25] MEDS ORDERED: SODIUM CHLOR 0.9% 1000 ML INJ 1,000 ML IV ONE ×2 (20:52)
[2016-11-25] MEDS ORDERED: SODIUM CHLOR 0.9% 1000 ML INJ 700 ML IV ONE (20:52)
--- NOTE | 2016-11-25 21:08 | RADRPT ---
EXAM DATE/TIME: 11/25/2016 20:52 [facility] COMPARISON: CHEST SINGLE AP, September 02, 2016, 0:09. INDICATIONS : Fever. MEDICAL HISTORY : Cardiovascular disease. Carcinoma, bladder. Neobladder SURGICAL HISTORY : Umbilical hernia repair. Neobladder, Infusaport, Cervical fusion. ENCOUNTER: Initial ACUITY: 2 days PAIN SCORE: 0/10 LOCATION: Bilateral chest FINDINGS: A single view of the chest demonstrates the lungs to be symmetrically aerated without evidence of mas s, infiltrate or effusion. The cardiomediastinal contours are unremarkable. The right-sided and a mu ltiple port catheter remains in place. There are multiple overlying electrocardiogram leads. There is mild scarring at the left lung base. Osseous structures are intact. CONCLUSION: 1. Mild scarring at the left lung base. 2. No evidence of pneumonia. Clifton Wiseman MD on November 25, 2016 at 21:06 Board Certified Radiologist. This report was verified electronically.
[2016-11-25 21:09] VITALS: O2SAT 94
[2016-11-25] MEDS ORDERED: MORPHINE SULFATE 4 MG/ML INJ IV PUSH ONE (21:30)
[2016-11-25 21:45] LABS: AUTOMATED NEUTROPHIL # 8.2 TH/MM3 (1.8-7.7); BASOPHIL % 0.1 % (0.0-2.0); EOSINOPHIL # 0.1 TH/MM3 (0-0.4); EOSINOPHIL % 0.7 % (0.0-4.0); HEMATOCRIT 35.2 % (39.0-51.0); HEMO FLAGS DIFF FINAL; LYMPH % 10.5 % (9.0-44.0); LYMPHOCYTE # 1.1 TH/MM3 (1.0-4.8); MEAN CORPUSCULAR HEMOGLOBIN 29.4 PG (27.0-34.0); MEAN CORPUSCULAR HGB CONC 32.6 % (32.0-36.0); MONO % 8.5 % (0.0-8.0); NEUT % 80.2 % (16.0-70.0); PLATELET COUNT 141 TH/MM3 (150-450); RED BLOOD COUNT 3.91 MIL/MM3 (4.50-5.90); RED CELL DISTRIBUTION WIDTH 15.4 % (11.6-17.2); WHITE BLOOD COUNT 10.2 TH/MM3 (4.0-11.0)
[2016-11-25 21:47] LABS: BACTERIA, URINE RARE /hpf; BLOOD, URINE SMALL (NEG); COMMENT (UR) CATH-CULTURE IND; CULTURE IF INDICATED CATH CULTURE IND; GLUCOSE,URINE NEG (NEG); KETONE, URINE NEG (NEG); MUCUS URINE FEW /lpf (OCC); NITRITE,URINE POS (NEG); SQUAMOUS EPITHELIAL CELL URINE 1 /hpf (0-5); URINE COLOR YELLOW (YELLW/STRAW)
[2016-11-25 21:52] LABS: ANION GAP 11 MEQ/L (5-15); AST (GOT) 13 U/L (15-37); BICARBONATE 22.1 MEQ/L (21.0-32.0); BLOOD UREA NITROGEN 26 MG/DL (7-18); CHLORIDE 103 MEQ/L (98-107); GLOMERULAR FILTRATION RATE 49 ML/MIN (>89); POTASSIUM 3.9 MEQ/L (3.5-5.1); SODIUM (NA) 136 MEQ/L (136-145)
[2016-11-25 21:53] LABS: ALT (GPT) 20 U/L (12-78)
[2016-11-25 21:55] LABS: ALKALINE PHOSPHATASE 87 U/L (45-117); TOTAL BILIRUBIN ADULT 0.4 MG/DL (0.2-1.0)
[2016-11-25 22:08] VITALS: BP 99/59; PULSE 75; RESP 18; TEMP 97.9; O2SAT 94
[2016-11-25] MEDS ORDERED: SENNOSIDES 8.6 MG TAB PO PRN (22:15)
[2016-11-25] MEDS ORDERED: LACTULOSE SYRUP 20 GM/30 ML CUP PO PRN (22:15)
[2016-11-25] MEDS ORDERED: MAGNESIUM HYDROXIDE SUSP 30 ML CUP PO PRN (22:15)
[2016-11-25] MEDS ORDERED: BISACODYL 10 MG SUPP RECTAL PRN (22:15)
[2016-11-25] MEDS ORDERED: NALOXONE HCL 0.4 MG/ML AMP IV PRN (22:15)
[2016-11-25] MEDS ORDERED: ONDANSETRON HCL 4 MG/2 ML VIAL IVP PRN (22:15)
--- NOTE | 2016-11-25 22:40 | HHI.HP ---
[facility] Service [facility] Primary Care Physician [facility] Admission Diagnosis pyelonephritis, outpatient treatment failure Diagnoses: Chief Complaint: fever and back pain Travel History International Travel<30 Days: No Contact w/Intl Traveler <30 Da: No Traveled to Known Affected Are: No Sepsis Criteria SIRS Criteria (2 or more): Temp > 100.9 or < 96.8, Heart rate over 90 Sepsis Criteria (SIRS+source): Infect source susp/known History of Present Illness Written by Yaneth Cristina, acting as scribe for [Lalitha] on 11/25/16 at 22: 40. 71 y/o male with a history of bladder cancer with a gary bladder who self caths 6x a day came to the ED with complaints of fever 102.7, and back pain. He states the back pain has been going on for a few day but he thought it was a strained muscle and last night he developed the fever. He denies any chest pain , sob, or chills. He states he self caths because he has an incisional hernia that is to be repaired soon and the DR does not want him to strain to urinate. Review of Systems Constitutional: COMPLAINS OF: Fever, DENIES: Chills Respiratory: DENIES: Cough, Sputum production, Shortness of breath Cardiovascular: DENIES: Chest pain, Lower Extremity Edema Gastrointestinal: DENIES: Abdominal pain, Nausea, Vomiting Genitourinary: DENIES: Hematuria, Dysuria Musculoskeletal: COMPLAINS OF: Back pain Integumentary: DENIES: Rash Hematologic/lymphatic: DENIES: Lymphadenopathy Immunologic/allergic: DENIES: Urticaria Neurologic: DENIES: Headache Past Family Social History Past Medical History Bladder cancer TIA Past Surgical History Bladder removed Gary bladder Cervical fusion x 2 Tonsillectomy Hernia repair Reported Medications Reported Meds & Active Scripts Active Ultram (Tramadol HCl) 50 Mg Tab 50 Mg PO Q6H PRN Reported Nitrofurantoin Monohydrate Macrocrystals (Nitrofurantoin Monoh/Nitrofur Macro) 100 Mg Cap 100 Mg PO ONCE Probiotic (Lactobacillus Acidophilus) 1 Cap Cap 2 Cap PO TIDAC [Vit Code Mens] 2 Tab PO BID Omeprazole 20 Mg Cap 20 Mg PO DAILY Glucosamine Chondroitin & [phone] mg (Ybfoafdzssz-Bldfrrjlgwh-Zv Cho) 1 Tab Tab 2 Tab PO BID Gabapentin 600 Mg Tab 1,200 Mg PO TID [Vitamin B -12 [place]] 1,000 Mg PO DAILY Acyclovir 400 Mg Tab 400 Mg PO BID Allergies: Coded Allergies: Sulfa (Verified Allergy, Severe, RASH/HIVES/ITCHING, 11/25/16) Active Ordered Medications Current Medications Medications (Trade) Dose Ordered Sig/Travon Route Start Time Stop Time Status Last Admin (Tylenol) 650 mg Q4H PRN PO 11/25/16 22:15 (Zofran Inj) 4 mg Q6H PRN IVP 11/25/16 22:15 (Narcan Inj) 0.4 mg UNSCH PRN IV 11/25/16 22:15 (Ryann-Colace) 1 tab BID PO 11/26/16 09:00 (Milk Of Magnesia Liq) 30 ml Q12H PRN PO 11/25/16 22:15 (Senokot) 17.2 mg Q12H PRN PO 11/25/16 22:15 (Dulcolax Supp) 10 mg DAILY PRN RECTAL 11/25/16 22:15 Lactulose 30 ml 30 ml DAILY PRN PO 11/25/16 22:15 (Rocephin Inj/NS Inj) 100 ml @ 200 mls/hr Q24H IV 11/26/16 06:00 Family History Mom: cancer Brother: neck cancer Social History Tobacco use: Quit 2000 Alcohol use: Denies Illicit drug use: Denies Physical Exam Vital Signs Vital Signs Date Time Temp Pulse Resp B/P Pulse Ox O2 Delivery O2 Flow Rate FiO2 11/25/16 22:08 97.9 75 18 99/59 94 Room Air 11/25/16 21:10 104 18 11/25/16 21:09 94 Room Air 11/25/16 21:09 94 Room Air 11/25/16 20:36 107 18 102/64 98 Room Air 11/25/16 20:02 99.6 111 16 129/70 98 Room Air Physical Exam GENERAL: This is a well-nourished, well-developed patient, in no apparent distress. SKIN: No rashes, ecchymoses or lesions. Cool and dry. HEAD: Atraumatic. Normocephalic. No temporal or scalp tenderness. EYES: Pupils equal round and reactive. Extraocular motions intact. No scleral icterus. ENT: Nose without bleeding, purulent drainage or septal hematoma. Throat without erythema, tonsillar hypertrophy or exudate. Uvula midline. Airway patent. NECK: Trachea midline. No JVD or lymphadenopathy. CARDIOVASCULAR: Regular rate and rhythm without murmurs, gallops, or rubs. RESPIRATORY: Clear to auscultation. Breath sounds equal bilaterally. No wheezes , rales, or rhonchi. GASTROINTESTINAL: Abdomen soft, non-tender, nondistended. No hepato-splenomegaly , or palpable masses. No guarding. Surgical scars noted. MUSCULOSKELETAL: Extremities without clubbing, cyanosis, or edema. No joint tenderness, effusion, or edema noted. No calf tenderness. NEUROLOGICAL: Awake and alert. Motor and sensory grossly within normal limits. Normal speech. Laboratory Laboratory Tests Test 11/25/16 21:00 White Blood Count 10.2 Red Blood Count 3.91 Hemoglobin 11.5 Hematocrit 35.2 Mean Corpuscular Volume 90.0 Mean Corpuscular Hemoglobin 29.4 Mean Corpuscular Hemoglobin 32.6 Concent Red Cell Distribution Width 15.4 Platelet Count 141 Mean Platelet Volume 7.6 Neutrophils (%) (Auto) 80.2 Lymphocytes (%) (Auto) 10.5 Monocytes (%) (Auto) 8.5 Eosinophils (%) (Auto) 0.7 Basophils (%) (Auto) 0.1 Neutrophils # (Auto) 8.2 Lymphocytes # (Auto) 1.1 Monocytes # (Auto) 0.9 Eosinophils # (Auto) 0.1 Basophils # (Auto) 0.0 CBC Comment DIFF FINAL Differential Comment Urine Color YELLOW Urine Turbidity HAZY Urine pH 7.0 Urine Specific [place] 1.012 Urine Protein TRACE Urine Glucose (UA) NEG Urine Ketones NEG Urine Occult Blood SMALL Urine Nitrite POS Urine Bilirubin NEG Urine Urobilinogen LESS THAN 2.0 Urine Leukocyte Esterase LARGE Urine RBC 6 Urine WBC 175 Urine Squamous Epithelial 1 Cells Urine Bacteria RARE Urine Mucus FEW Microscopic Urinalysis Comment CATH-CULTURE IND Sodium Level 136 Potassium Level 3.9 Chloride Level 103 Carbon Dioxide Level 22.1 Anion Gap 11 Blood Urea Nitrogen 26 Creatinine 1.43 Estimat Glomerular Filtration 49 Rate Random Glucose 130 Lactic Acid Level 1.2 Calcium Level 9.1 Total Bilirubin 0.4 Aspartate Amino Transf 13 (AST/SGOT) Alanine Aminotransferase 20 (ALT/SGPT) Alkaline Phosphatase 87 Total Protein 7.3 Albumin 3.4 Date/Time Procedure Status Source Growth 11/25/16 21:05 Aerobic Blood Culture Received Blood Peripheral Pending 11/25/16 21:05 Anaerobic Blood Culture Received Blood Peripheral Pending 11/25/16 21:00 Urine Culture Received Urine Catheterized Urine Pending Result Diagram: 11/25/16209911/25/162099 Imaging Last Impressions Chest X-Ray 11/25/162051 Signed Impressions: Service Date/Time: Friday, November 25, 2016 20:52 - CONCLUSION: 1. Mild scarring at the left lung base. 2. No evidence of pneumonia. Clifton Wiseman MD Assessment and Plan Problem List: (1) Pyelonephritis ICD Code: N12 Status: Acute Assessment and Plan 71 y/o male with a history of bladder cancer with a gary bladder who self caths 6x a day came to the ED with complaints of fever 102.7, and back pain. Pyelonephritis, abnormal UA with back pain History of klebsiella in urine September 2016 outpatient -Rocephin IV -IVF for hydration -CBC in AM -Urine culture pending Gary bladder, chronic -Self cath as needed Acute kidney injury -IV fluids -Recheck labs in AM DVT prophylaxis: SCDs This note was transcribed by raul Cristina. I, Dr. Andrew Doty personally performed the history, physical exam, and medical decision making; and confirmed the accuracy of the information in the transcribed note. Authenticated by Dr. Andrew Doty on 11/25/16 at 23:53. Discussed Condition With Patient and patients Physician Certification 2 Midnight Certification Type: Admission for Inpatient Services Order for Inpatient Services The services are ordered in accordance with Medicare regulations or non- Medicare payer requirements, as applicable. In the case of services not specified as inpatient-only, they are appropriately provided as inpatient services in accordance with the 2-midnight benchmark. Estimated LOS (days): 2 2 days is the estimated time the patient will need to remain in the hospital, assuming treatment plan goals are met and no additional complications. Post-Hospital Plan: Home Yaneth Cristina Nov 25, 2016 22:40 Andrew Doty MD Nov 25, 2016 23:54
[2016-11-25 23:45] VITALS: PULSE 87
[2016-11-26] VITALS: BP 99/59; PULSE 82; RESP 18; TEMP 97; O2SAT 98
[2016-11-26 04:00] VITALS: BP 104/57; PULSE 78; RESP 17; TEMP 97.1; O2SAT 96
[2016-11-26 04:08] LABS: AUTOMATED NEUTROPHIL # 4.9 TH/MM3 (1.8-7.7); BASOPHIL % 0.2 % (0.0-2.0); EOSINOPHIL # 0.1 TH/MM3 (0-0.4); HEMATOCRIT 29.8 % (39.0-51.0); HEMO FLAGS DIFF FINAL; LYMPH % 15.2 % (9.0-44.0); MEAN CELL VOLUME 91.4 FL (80.0-100.0); MEAN CORPUSCULAR HEMOGLOBIN 29.5 PG (27.0-34.0); MEAN CORPUSCULAR HGB CONC 32.3 % (32.0-36.0); NEUT % 74.6 % (16.0-70.0); PLATELET COUNT 105 TH/MM3 (150-450); RED BLOOD COUNT 3.27 MIL/MM3 (4.50-5.90); RED CELL DISTRIBUTION WIDTH 15.6 % (11.6-17.2); WHITE BLOOD COUNT 6.6 TH/MM3 (4.0-11.0)
[2016-11-26 04:35] LABS: BICARBONATE 27.4 MEQ/L (21.0-32.0); POTASSIUM 4.2 MEQ/L (3.5-5.1)
[2016-11-26] MEDS: cefTRIAXone INJ 1,000 MG in SODIUM CHLORIDE 0.9% INJ 100 ML IV SCH (07:32)
[2016-11-26] MEDS: MORPHINE SULFATE 8 MG/ML INJ IV PUSH PRN ×5 (07:39→21:00)
[2016-11-26 08:00] VITALS: BP 117/56; PULSE 90; RESP 16; TEMP 98.6; O2SAT 96
[2016-11-26] MEDS: DOCUSATE SODIUM 50 MG/SENNA 8.6 MG TAB PO SCH ×2 (08:38→21:00)
--- NOTE | 2016-11-26 09:23 | HHI.PR ---
Subjective Remarks No acute events overnight. Afebrile, vital signs stable. Patient with Fernandez in place draining clear yellow urine. He states his back pain is much improved from yesterday. He has no complaints at this time. He is ambulating well. Objective Vitals Vital Signs Date Time Temp Pulse Resp B/P Pulse Ox O2 Delivery O2 Flow Rate FiO2 11/26/16 08:38 16 11/26/16 08:00 98.6 90 16 117/56 96 11/26/16 04:00 97.1 78 17 104/57 96 11/26/16 00:00 97.0 82 18 99/59 98 11/25/16 23:45 87 11/25/16 22:08 97.9 75 18 99/59 94 Room Air 11/25/16 21:10 104 18 11/25/16 21:09 94 Room Air 11/25/16 21:09 94 Room Air 11/25/16 20:36 107 18 102/64 98 Room Air 11/25/16 20:02 99.6 111 16 129/70 98 Room Air I/O 11/25/16 11/25/16 11/25/16 11/26/16 11/26/16 11/26/16 07:00 15:00 23:00 07:00 15:00 23:00 Intake Total 3350 ml 280 ml Output Total 1800 ml Balance 3350 ml -1520 ml Intake Oral 280 ml IV Total 3350 ml Output Urine Total 1800 ml # Bowel Movements 0 Result Diagram: 11/26/16 0338 11/26/16 0338 Objective Remarks Gen.: No acute distress Head: Normocephalic. Atraumatic. EENT: Pupils equal round and reactive to light. Nose without drainage. Airway intact. Throat without injection. Cardiovascular: Regular rate and rhythm. No murmurs, rubs or gallops. Respiratory: Lungs clear to auscultation bilaterally. No wheezes or rhonchi. Abdomen: Soft, nontender, nondistended. No peritoneal signs. : No CVA tenderness. Fernandez in place draining clear yellow urine. Musculoskeletal: No gross deformities. No edema. Skin: No obvious rashes or erythema. Neuro: Sensory and motor grossly intact. Cranial nerves II through XII grossly intact. Psych: Appropriate mood and affect A/P Problem List: (1) Pyelonephritis ICD Code: N12 Status: Acute Assessment and Plan 71 y/o male with a history of bladder cancer with a gary bladder who self caths 6x a day came to the ED with complaints of fever 102.7, and back pain. Pyelonephritis, abnormal UA with back pain History of klebsiella in urine September 2016 outpatient -Rocephin IV -IVF for hydration -CBC WNL, will follow -Urine culture pending Gary bladder, chronic -Fernandez Acute kidney injury -IV fluids -Recheck labs in AM Anemia -Likely delusional, continue to follow DVT prophylaxis: SCDs, heparin Brooke Mario MD R3 Nov 26, 2016 09:23
[2016-11-26] MEDS: ACETAMINOPHEN 325 MG TAB PO PRN ×3 (11:06→23:32)
[2016-11-26 12:00] VITALS: BP 117/63; PULSE 94; RESP 17; TEMP 99.3; O2SAT 96
[2016-11-26] MEDS: HEPARIN SODIUM - SQ 10,000 UNITS/ML VIAL SQ SCH ×2 (14:00→21:00)
[2016-11-26 16:00] VITALS: BP 118/59; PULSE 99; RESP 16; TEMP 98.9; O2SAT 96
[2016-11-26 20:00] VITALS: BP 116/63; PULSE 100; RESP 18; TEMP 99; O2SAT 96
[2016-11-27 00:06] VITALS: BP 114/56; PULSE 92; RESP 18; TEMP 97.7; O2SAT 98
[2016-11-27] MEDS: MORPHINE SULFATE 8 MG/ML INJ IV PUSH PRN ×6 (00:25→21:59)
[2016-11-27] MEDS: ACETAMINOPHEN 325 MG TAB PO PRN ×4 (03:43→23:18)
[2016-11-27 04:00] VITALS: BP 118/70; PULSE 80; RESP 18; TEMP 96.9; O2SAT 98
[2016-11-27] MEDS: cefTRIAXone INJ 1,000 MG in SODIUM CHLORIDE 0.9% INJ 100 ML IV SCH (05:53)
[2016-11-27] MEDS: HEPARIN SODIUM - SQ 10,000 UNITS/ML VIAL SQ SCH ×3 (05:53→08:40)
[2016-11-27 06:44] LABS: AUTOMATED NEUTROPHIL # 2.9 TH/MM3 (1.8-7.7); BASOPHIL % 0.2 % (0.0-2.0); EOSINOPHIL # 0.1 TH/MM3 (0-0.4); EOSINOPHIL % 2.3 % (0.0-4.0); HEMATOCRIT 29.3 % (39.0-51.0); HEMO FLAGS DIFF FINAL; LYMPH % 20.2 % (9.0-44.0); LYMPHOCYTE # 0.9 TH/MM3 (1.0-4.8); MEAN CELL VOLUME 90.6 FL (80.0-100.0); MEAN CORPUSCULAR HGB CONC 33.1 % (32.0-36.0); MONO % 13.1 % (0.0-8.0); NEUT % 64.2 % (16.0-70.0); PLATELET COUNT 100 TH/MM3 (150-450); RED BLOOD COUNT 3.23 MIL/MM3 (4.50-5.90); RED CELL DISTRIBUTION WIDTH 15.8 % (11.6-17.2); WHITE BLOOD COUNT 4.5 TH/MM3 (4.0-11.0)
[2016-11-27 07:06] LABS: POTASSIUM 3.7 MEQ/L (3.5-5.1)
[2016-11-27 08:00] VITALS: BP 97/52; PULSE 78; RESP 16; TEMP 96.7; O2SAT 95
[2016-11-27] MEDS: DOCUSATE SODIUM 50 MG/SENNA 8.6 MG TAB PO SCH ×2 (08:38→23:05)
[2016-11-27 12:00] VITALS: BP 122/57; PULSE 87; RESP 16; TEMP 96.4; O2SAT 95
--- NOTE | 2016-11-27 14:24 | HHI.PR ---
Subjective Remarks Follow-up pyelonephritis 11/27/16-patient seen and examined, reports some improvement of flank pain. Currently afebrile. States, this is 8th episodes of UTI over the past 7 months Objective Vitals Vital Signs Date Time Temp Pulse Resp B/P Pulse Ox O2 Delivery O2 Flow Rate FiO2 11/27/16 12:00 96.4 87 16 122/57 95 11/27/16 08:00 96.7 78 16 97/52 95 11/27/16 04:00 96.9 80 18 118/70 98 11/27/16 00:06 97.7 92 18 114/56 98 11/26/16 20:00 99.0 100 18 116/63 96 11/26/16 16:00 98.9 99 16 118/59 96 I/O 11/26/16 11/26/16 11/26/16 11/27/16 11/27/16 11/27/16 07:00 15:00 23:00 07:00 15:00 23:00 Intake Total 280 ml 1080 ml 480 ml 580 ml Output Total 1800 ml 450 ml 1700 ml 1350 ml Balance -1520 ml 630 ml -1220 ml -770 ml Intake Oral 280 ml 1080 ml 480 ml 480 ml IV Total 100 ml Output Urine Total 1800 ml 450 ml 1700 ml 1350 ml # Bowel Movements 0 2 0 Result Diagram: 11/27/16 0550 11/27/16 0550 Imaging Last Impressions Chest X-Ray 11/25/162051 Signed Impressions: Service Date/Time: Friday, November 25, 2016 20:52 - CONCLUSION: 1. Mild scarring at the left lung base. 2. No evidence of pneumonia. Clifton Wiseman MD Objective Remarks GENERAL: NAD SKIN: Warm and dry. HEAD: Normocephalic. EYES: No scleral icterus. No injection or drainage. NECK: Supple, trachea midline. No JVD or lymphadenopathy. CARDIOVASCULAR: Regular rate and rhythm without murmurs, gallops, or rubs. RESPIRATORY: Breath sounds equal bilaterally. No accessory muscle use. GASTROINTESTINAL: Abdomen soft, non-tender, nondistended. Incisional hernia MUSCULOSKELETAL: No cyanosis, or edema. BACK: Nontender without obvious deformity. No CVA tenderness. A/P Problem List: (1) Pyelonephritis ICD Code: N12 Status: Acute Assessment and Plan 71-year-old man with Pyelonephritis History of klebsiella in urine September 2016 outpatient -Rocephin IV -IVF for hydration -Urine culture positive for PNEUMONIA Gary bladder, chronic -Fernandez Acute kidney injury-resolved -IV fluids Anemia -Likely delusional, continue to follow Incisional hernia Outpatient follow-up with surgery History of bladder cancer Outpatient follow-up with urology DVT prophylaxis: SCDs, heparin Moe Madsen MD Nov 27, 2016 14:24
[2016-11-27 16:00] VITALS: BP 129/61; PULSE 84; RESP 16; TEMP 97.9; O2SAT 96
[2016-11-27 20:00] VITALS: BP 121/59; PULSE 87; RESP 18; TEMP 98.6; O2SAT 98
[2016-11-28] VITALS: BP 126/66; PULSE 92; RESP 18; TEMP 98.6; O2SAT 97
[2016-11-28] MEDS: MORPHINE SULFATE 8 MG/ML INJ IV PUSH PRN ×3 (01:15→07:22)
[2016-11-28 04:00] VITALS: BP 121/68; PULSE 80; RESP 18; TEMP 97.6; O2SAT 95
[2016-11-28] MEDS: cefTRIAXone INJ 1,000 MG in SODIUM CHLORIDE 0.9% INJ 100 ML IV SCH (04:21)
[2016-11-28] MEDS: ACETAMINOPHEN 325 MG TAB PO PRN (04:21)
[2016-11-28] MEDS: HEPARIN SODIUM - SQ 10,000 UNITS/ML VIAL SQ SCH (04:21)
[2016-11-28 08:00] VITALS: BP 133/76; PULSE 76; RESP 17; TEMP 95.7; O2SAT 99
[2016-11-28] MEDS: DOCUSATE SODIUM 50 MG/SENNA 8.6 MG TAB PO SCH (08:03)
--- NOTE | 2016-11-28 11:11 | HHI.PR ---
Subjective Remarks Follow-up pyelonephritis 11/27/16-patient seen and examined, reports some improvement of flank pain. Currently afebrile. States, this is 8th episodes of UTI over the past 7 months 11/28/16-patient seen and examined, he had one episode of emesis this morning prior to breakfast otherwise stable now. Afebrile. Objective Vitals Vital Signs Date Time Temp Pulse Resp B/P Pulse Ox O2 Delivery O2 Flow Rate FiO2 11/28/16 08:00 95.7 76 17 133/76 99 11/28/16 04:00 97.6 80 18 121/68 95 11/28/16 00:00 98.6 92 18 126/66 97 11/27/16 20:00 98.6 87 18 121/59 98 11/27/16 16:00 97.9 84 16 129/61 96 11/27/16 12:00 96.4 87 16 122/57 95 I/O 11/27/16 11/27/16 11/27/16 11/28/16 11/28/16 11/28/16 07:00 15:00 23:00 07:00 15:00 23:00 Intake Total 580 ml 240 ml 340 ml 220 ml Output Total 1350 ml 550 ml 1500 ml 650 ml Balance -770 ml -310 ml -1160 ml -430 ml Intake Oral 480 ml 240 ml 240 ml 120 ml IV Total 100 ml 100 ml 100 ml Output Urine Total 1350 ml 550 ml 1500 ml 650 ml # Bowel Movements 0 0 Result Diagram: 11/27/16 0550 11/27/16 0550 Objective Remarks GENERAL: NAD SKIN: Warm and dry. HEAD: Normocephalic. EYES: No scleral icterus. No injection or drainage. NECK: Supple, trachea midline. No JVD or lymphadenopathy. CARDIOVASCULAR: Regular rate and rhythm without murmurs, gallops, or rubs. RESPIRATORY: Breath sounds equal bilaterally. No accessory muscle use. GASTROINTESTINAL: Abdomen soft, non-tender, nondistended. Incisional hernia MUSCULOSKELETAL: No cyanosis, or edema. BACK: Nontender without obvious deformity. No CVA tenderness. Procedures None A/P Problem List: (1) Pyelonephritis ICD Code: N12 Status: Acute Assessment and Plan 71-year-old man with Pyelonephritis History of klebsiella in urine September 2016 outpatient -Rocephin IV with history to by mouth antibiotic on discharge -IVF for hydration -Urine culture positive for Klebsiella PNEUMONIA Gary bladder, chronic -Fernandez Acute kidney injury-resolved -IV fluids Anemia -Likely delusional, continue to follow Incisional hernia Outpatient follow-up with surgery History of bladder cancer Outpatient follow-up with urology DVT prophylaxis: SCDs, heparin Moe Madsen MD Nov 28, 2016 11:10
--- NOTE | 2016-11-28 11:19 | HHI.DS ---
Discharge Summary Admission Date Nov 25, 2016 at 22:14 Discharge Date: Nov 28, 2016 Admitting Diagnosis pyelonephritis, outpatient treatment failure (1) Pyelonephritis ICD Code: N12 Procedures None Brief History - From Admission Written by Yaneth Cristina, acting as scribe for [Lalitha] on 11/25/16 at 22: 40. 71 y/o male with a history of bladder cancer with a ashley bladder who self caths 6x a day came to the ED with complaints of fever 102.7, and back pain. He states the back pain has been going on for a few day but he thought it was a strained muscle and last night he developed the fever. He denies any chest pain , sob, or chills. He states he self caths because he has an incisional hernia that is to be repaired soon and the DR does not want him to strain to urinate. CBC/BMP: 11/27/16 0550 11/27/16 0550 Significant Findings Laboratory Tests Test 11/25/16 11/26/16 11/27/16 21:00 03:38 05:50 Blood Urea Nitrogen 26 MG/DL (7-18) 23 MG/DL (7-18) Creatinine 1.43 MG/DL 1.33 MG/DL (0.60-1.30) (0.60-1.30) Estimat Glomerular Filtration 49 ML/MIN (>89) 53 ML/MIN (>89) 71 ML/MIN (>89) Rate Random Glucose 130 MG/DL 124 MG/DL 107 MG/DL (74-106) (74-106) (74-106) Aspartate Amino Transf 13 U/L (15-37) (AST/SGOT) Red Blood Count 3.91 MIL/MM3 3.27 MIL/MM3 3.23 MIL/MM3 (4.50-5.90) (4.50-5.90) (4.50-5.90) Hemoglobin 11.5 GM/DL 9.6 GM/DL 9.7 GM/DL (13.0-17.0) (13.0-17.0) (13.0-17.0) Hematocrit 35.2 % 29.8 % 29.3 % (39.0-51.0) (39.0-51.0) (39.0-51.0) Platelet Count 141 TH/MM3 105 TH/MM3 100 TH/MM3 (150-450) (150-450) (150-450) Neutrophils (%) (Auto) 80.2 % 74.6 % (16.0-70.0) (16.0-70.0) Monocytes (%) (Auto) 8.5 % (0.0-8.0) 9.0 % (0.0-8.0) 13.1 % (0.0-8.0) Neutrophils # (Auto) 8.2 TH/MM3 (1.8-7.7) Urine Turbidity HAZY (CLEAR) Urine Occult Blood SMALL (NEG) Urine Nitrite POS (NEG) Urine Leukocyte Esterase LARGE (NEG) Urine RBC 6 /hpf (0-3) Urine WBC 175 /hpf (0-5) Urine Bacteria RARE /hpf (NONE) Urine Mucus FEW /lpf (OCC) Chloride Level 110 MEQ/L (98-107) Calcium Level 8.0 MG/DL (8.5-10.1) Lymphocytes # (Auto) 0.9 TH/MM3 (1.0-4.8) Imaging Last Impressions Chest X-Ray 11/25/162051 Signed Impressions: Service Date/Time: Friday, November 25, 2016 20:52 - CONCLUSION: 1. Mild scarring at the left lung base. 2. No evidence of pneumonia. Clifton Wiseman MD PE at Discharge GENERAL: NAD SKIN: Warm and dry. HEAD: Normocephalic. EYES: No scleral icterus. No injection or drainage. NECK: Supple, trachea midline. No JVD or lymphadenopathy. CARDIOVASCULAR: Regular rate and rhythm without murmurs, gallops, or rubs. RESPIRATORY: Breath sounds equal bilaterally. No accessory muscle use. GASTROINTESTINAL: Abdomen soft, non-tender, nondistended. Incisional hernia MUSCULOSKELETAL: No cyanosis, or edema. BACK: Nontender without obvious deformity. No CVA tenderness. Hospital Course Patient admitted secondary to complicated pyelonephritis associated with history of indwelling catheter for which he will treated with IV antibiotic. He will be switched to by mouth antibiotics for 10 more days of therapy. DVT and GI prophylaxis were provided. Prior to discharge, patient conditions improved and vital remained stable. Pt Condition on Discharge: Stable Discharge Disposition: Discharge Home Discharge Time: <= 30 minutes Discharge Instructions DIET: Follow Instructions for: Heart Healthy Diet Activities you can perform: Regular-No Restrictions Follow up Referrals: PCP Follow-up - 1 Week New Medications: Ciprofloxacin (Cipro) 500 Mg Tab 500 MG PO BID Infection #20 Ref 0 TAB Lactobacillus Acidophilus (Lactinex) 1 Chew 1 TAB CHEW BID Nutritional Supplement #60 Ref 0 TAB Meperidine (Meperidine) 50 Mg Tab 50 MG PO Q3H PRN HEADACHE #15 TAB Continued Medications: Acyclovir (Acyclovir) 400 Mg Tab 400 MG PO BID Mgmt Viral Infection Ref 0 TAB Gabapentin (Gabapentin) 600 Mg Tab 1200 MG PO TID #90 Ref 0 TAB Woeiywiwmju-Nnnqituvqvz-Ra Cho (Glucosamine Chondroitin & [id number] mg) 1 Tab Tab 2 TAB PO BID Lactobacillus Acidophilus (Probiotic) 1 Cap Cap 2 CAP PO TIDAC Nutritional Supplement #180 Ref 0 CAP Omeprazole (Omeprazole) 20 Mg Cap 20 MG PO DAILY Tramadol (Ultram) 50 Mg Tab 50 MG PO Q6H PRN headache and pain 3-5 #28 TAB ([Vit Code Mens]) 2 TAB PO BID ([Vitamin B -12 [place]]) 1000 MG PO DAILY Discontinued Medications: Nitrofurantoin Monohydrate Macrocrystals (Nitrofurantoin Monohydrate Macrocrystals) 100 Mg Cap 100 MG PO ONCE Infection Ref 0 CAP Moe Madsen MD Nov 28, 2016 11:19
[2016-11-28] MEDS ORDERED: CIPR-9 PO (11:20)
[2016-11-28] MEDS ORDERED: LACTCHW3 CHEW (11:44)
[2016-11-28] MEDS ORDERED: MEPERIDINE HCL 50 MG TAB PO PRN (11:45)
[2016-11-28] MEDS ORDERED: MEPE50TA PO (11:53)
[2016-11-28 12:00] VITALS: BP 99/61; PULSE 74; RESP 16; TEMP 95.7; O2SAT 98
== END 2016-11-28 13:39 | disposition home or self-care (01) | DRG 690 ==
LOC: NEPE 20:00 → NEDA 22:14 → N07B 23:35
PROVIDERS: ADMIT Hospitalist; ATTEND Hospitalist
DX: N12 Tubulo-interstitial nephritis, not specified as acute or chronic (principal); N17.9 Acute kidney failure, unspecified; E11.9 Type 2 diabetes mellitus without complications; D64.9 Anemia, unspecified; K21.9 Gastro-esophageal reflux disease without esophagitis; R00.0 Tachycardia, unspecified; K43.2 Incisional hernia without obstruction or gangrene; Z85.51 Personal history of malignant neoplasm of bladder; Z92.21 Personal history of antineoplastic chemotherapy; Z86.73 Personal history of transient ischemic attack (TIA), and cerebral infarction without residual deficits; Z87.891 Personal history of nicotine dependence
CPT/HCPCS: 51702; 71010; 80048; 80053; 81001; 83605; 85025; 87040; 87077; 87086; 87186; 96365; 96375; J0696; J1644; J2270; J2405; J2543; J3370; J7030; J7050

== ENCOUNTER 2017-04-14 17:30 | Inpatient (IN) | payer OTHER, MEDICARE ==
[~2017-04-14] VITALS: Ht 180.3 cm; Wt 98.6 kg
[~2017-04-14 17:30] MED LIST changes: +CIPR-9 PO; -FERR325T PO; +LACTCHW3 CHEW; +MEPE50TA PO; +TRAM50 PO; -ULTR50TA5 PO
[2017-04-14 17:33] VITALS: BP 133/71; PULSE 122; RESP 14; TEMP 100.8; O2SAT 97
--- NOTE | 2017-04-14 18:02 | PD ---
HPI Chief Complaint: Complaint Time Seen by Provider: 17:44 Travel History International Travel<30 days: No Contact w/Intl Traveler<30days: No Traveled to known affect area: No History of Present Illness HPI 71-year-old male complains of dysuria, frequency, fever and back pain. Patient has history of bladder cancer status post bladder removal and reconstruction of the bladder with bowel. Patient has history of recurrent UTI subsequently. Patient usually admitted for IV antibiotic including Rocephin and outpatient treatment with cephalexin. Patient started running fever since yesterday. Patient was seen at the [place] [facility] yesterday and diagnosed with UTI. Patient states that the was no available physician to give him the prescription for cephalexin. Patient was advised to go to ED for evaluation and treatment. Patient denies any headache. Patient denies any chest pain or short of breath. Patient states that he has low abdominal discomfort. Patient states that he has bilateral flank pain. Patient self Catheter himself daily. 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) Thyroid Disease: No Tetanus Vaccination: > 5 Years Influenza Vaccination: Yes Past Surgical History Abdominal Surgery: Yes (HERNIA) Body Medical Devices: titanum in neck, 5 inplants in teeth Cardiac Surgery: Yes Genitourinary Surgery: Yes (BLADDER RECONSTRUCTION) Neurologic Surgery: Yes (CERVICAL FUSION C4-5-6, 7) Tonsillectomy: Yes Other Surgery: Yes (tonsilectomy, quad hernia, cervical fusion, digenertive dics ) Family History Family Hypercholesterolemia: Yes Social History Alcohol Use: No (QUIT 1990) Tobacco Use: No (QUIT 1999 ) Substance Use: No Allergies-Medications (Allergen,Severity, Reaction): Coded Allergies: Sulfa (Sulfonamide Antibiotics) (Unverified Allergy, Severe, RASH/HIVES/ ITCHING, 01/02/17) Reported Meds & Prescriptions Reported Meds & Active Scripts Active Meperidine (Meperidine HCl) 50 Mg Tab 50 Mg PO Q3H PRN Lactinex (Lactobacillus Acidophilus) 1 Chew 1 Tab CHEW BID Cipro (Ciprofloxacin HCl) 500 Mg Tab 500 Mg PO BID Ultram (Tramadol HCl) 50 Mg Tab 50 Mg PO Q6H PRN Reported Probiotic (Lactobacillus Acidophilus) 1 Cap Cap 2 Cap PO TIDAC [Vit Code Mens] 2 Tab PO BID Omeprazole 20 Mg Cap 20 Mg PO DAILY Glucosamine Chondroitin & [phone] mg (Ojyuqqqulkm-Zoctomdodxw-Tq Cho) 1 Tab Tab 2 Tab PO BID Gabapentin 600 Mg Tab 1,200 Mg PO TID [Vitamin B -12 [place]] 1,000 Mg PO DAILY Acyclovir 400 Mg Tab 400 Mg PO BID Review of Systems General / Constitutional: Positive: Fever Eyes: No: Visual changes HENT: No: Headaches Cardiovascular: No: Chest Pain or Discomfort Respiratory: No: Shortness of Breath Gastrointestinal: No: Abdominal Pain Genitourinary: Positive: Frequency, Dysuria Musculoskeletal: No: Pain Skin: No Rash Neurologic: No: Weakness Psychiatric: No: Depression Endocrine: No: Polydipsia Hematologic/Lymphatic: No: Easy Bruising Physical Exam Narrative GENERAL: Well-nourished, well-developed patient. SKIN: Focused skin assessment warm/dry. HEAD: Normocephalic. EYES: No scleral icterus. No injection or drainage. NECK: Supple, trachea midline. No JVD or lymphadenopathy. CARDIOVASCULAR: Regular rate and rhythm without murmurs, gallops, or rubs. RESPIRATORY: Breath sounds equal bilaterally. No accessory muscle use. GASTROINTESTINAL: Abdomen soft, non-tender, nondistended. MUSCULOSKELETAL: No cyanosis, or edema. BACK: Nontender without obvious deformity. Positive bilateral CVA tenderness. Neurologic exam normal. Data Data Last Documented VS Vital Signs Date Time Temp Pulse Resp B/P (MAP) Pulse Ox O2 Delivery O2 Flow Rate FiO2 04/14/17 18:40 98 Room Air 04/14/17 17:47 18 04/14/17 17:33 100.8 122 Orders Orders Complete Blood Count With Diff (04/14/17 17:54) Comprehensive Metabolic Panel (04/14/17 17:54) Blood Culture (04/14/17 17:54) Urinalysis - C+S If Indicated (04/14/17 17:54) Iv Access Insert/Monitor (04/14/17 17:54) Ecg Monitoring (04/14/17 17:54) Oximetry (04/14/17 17:54) Ceftriaxone Inj (Rocephin Inj) (04/14/17 18:15) Sodium Chlor 0.9% 1000 Ml Inj (Ns 1000 M (04/14/17 18:15) Urinary Catheter Insert/Apply (04/14/17 18:42) Labs Laboratory Tests Test 04/14/17 18:00 04/14/17 18:35 White Blood Count 10.3 TH/MM3 Red Blood Count 4.16 MIL/MM3 Hemoglobin 13.5 GM/DL Hematocrit 39.3 % Mean Corpuscular Volume 94.5 FL Mean Corpuscular Hemoglobin 32.4 PG Mean Corpuscular Hemoglobin Concent 34.3 % Red Cell Distribution Width 13.8 % Platelet Count 154 TH/MM3 Mean Platelet Volume 7.2 FL Neutrophils (%) (Auto) 86.1 % Lymphocytes (%) (Auto) 7.2 % Monocytes (%) (Auto) 6.4 % Eosinophils (%) (Auto) 0.1 % Basophils (%) (Auto) 0.2 % Neutrophils # (Auto) 8.9 TH/MM3 Lymphocytes # (Auto) 0.7 TH/MM3 Monocytes # (Auto) 0.7 TH/MM3 Eosinophils # (Auto) 0.0 TH/MM3 Basophils # (Auto) 0.0 TH/MM3 CBC Comment DIFF FINAL Differential Comment Blood Urea Nitrogen 23 MG/DL Creatinine 1.59 MG/DL Random Glucose 123 MG/DL Total Protein 8.1 GM/DL Albumin 3.5 GM/DL Calcium Level 8.8 MG/DL Alkaline Phosphatase 89 U/L Aspartate Amino Transf (AST/SGOT) 29 U/L Alanine Aminotransferase (ALT/SGPT) 33 U/L Total Bilirubin 0.8 MG/DL Sodium Level 132 MEQ/L Potassium Level 3.3 MEQ/L Chloride Level 96 MEQ/L Carbon Dioxide Level 27.0 MEQ/L Anion Gap 9 MEQ/L Estimat Glomerular Filtration Rate 43 ML/MIN [facility] Medical Decision Making Medical Screen Exam Complete: Yes Emergency Medical Condition: Yes Interpretation(s) 1843 PM. CBC within normal limit. WBC 10.3. 86 neutrophil. Sodium 132. Potassium 3.3. BUN 23. Creatinine 1.59. GFR 43. Differential Diagnosis Differential diagnosis including urethritis, UTI, pyelonephritis. Narrative Course 71-year-old male with bilateral CVA tenderness, fever, dysuria or frequency. History of recurrent UTIs secondary to reconstruction urinary bladder. Patient has history of urinary bladder cancer in the past. Rocephin 1 g IV given. Diagnosis Primary Impression: Pyelonephritis Admitting Information Admitting Physician Requests: Observation Rajendra Burks MD Apr 14, 2017 18:02
[2017-04-14] MEDS ORDERED: cefTRIAXone INJ 1,000 MG in SODIUM CHLORIDE 0.9% INJ 100 ML IV ONE (18:15)
[2017-04-14] MEDS ORDERED: SODIUM CHLOR 0.9% 1000 ML INJ 1,000 ML IV SCH (18:15)
[2017-04-14 18:17] LABS: AUTOMATED NEUTROPHIL # 8.9 TH/MM3 (1.8-7.7); BASOPHIL % 0.2 % (0.0-2.0); EOSINOPHIL % 0.1 % (0.0-4.0); HEMATOCRIT 39.3 % (39.0-51.0); HEMO FLAGS DIFF FINAL; LYMPH % 7.2 % (9.0-44.0); LYMPHOCYTE # 0.7 TH/MM3 (1.0-4.8); MEAN CELL VOLUME 94.5 FL (80.0-100.0); MEAN CORPUSCULAR HEMOGLOBIN 32.4 PG (27.0-34.0); MEAN CORPUSCULAR HGB CONC 34.3 % (32.0-36.0); MONO % 6.4 % (0.0-8.0); NEUT % 86.1 % (16.0-70.0); PLATELET COUNT 154 TH/MM3 (150-450); RED BLOOD COUNT 4.16 MIL/MM3 (4.50-5.90); RED CELL DISTRIBUTION WIDTH 13.8 % (11.6-17.2); WHITE BLOOD COUNT 10.3 TH/MM3 (4.0-11.0)
[2017-04-14 18:35] LABS: ANION GAP 9 MEQ/L (5-15); AST (GOT) 29 U/L (15-37); BLOOD UREA NITROGEN 23 MG/DL (7-18); CHLORIDE 96 MEQ/L (98-107); GLOMERULAR FILTRATION RATE 43 ML/MIN (>89); POTASSIUM 3.3 MEQ/L (3.5-5.1); SODIUM (NA) 132 MEQ/L (136-145)
[2017-04-14 18:39] LABS: ALKALINE PHOSPHATASE 89 U/L (45-117); ALT (GPT) 33 U/L (12-78); TOTAL BILIRUBIN ADULT 0.8 MG/DL (0.2-1.0)
[2017-04-14 18:40] VITALS: O2SAT 98
[2017-04-14 19:00] LABS: BACTERIA, URINE FEW /hpf; BLOOD, URINE SMALL (NEG); COMMENT (UR) CULTURE INDICATED; CULTURE IF INDICATED CULTURE INDICATED; GLUCOSE,URINE NEG (NEG); KETONE, URINE NEG (NEG); MUCUS URINE FEW /lpf (OCC); NITRITE,URINE NEG (NEG); PH, URINE 6.5 (5.0-8.5); SQUAMOUS EPITHELIAL CELL URINE <1 /hpf (0-5); URINE COLOR YELLOW (YELLW/STRAW)
[2017-04-14] MEDS: SODIUM CHLOR 0.9% 1000 ML INJ 1,000 ML IV SCH (19:11)
[2017-04-14] MEDS ORDERED: SENNOSIDES 8.6 MG TAB PO PRN (19:15)
[2017-04-14] MEDS ORDERED: BISACODYL 10 MG SUPP RECTAL PRN (19:15)
[2017-04-14] MEDS ORDERED: ONDANSETRON HCL 4 MG/2 ML VIAL IVP PRN (19:15)
[2017-04-14] MEDS ORDERED: SODIUM CHLORIDE 0.9% FLUSH 10 ML FLUSH IV FLUSH PRN (19:15)
[2017-04-14] MEDS ORDERED: MAGNESIUM HYDROXIDE SUSP 30 ML CUP PO PRN (19:15)
[2017-04-14] MEDS ORDERED: ACETAMINOPHEN 325 MG TAB PO PRN (19:15)
[2017-04-14] MEDS ORDERED: LACTULOSE SYRUP 20 GM/30 ML CUP PO PRN (19:15)
--- NOTE | 2017-04-14 19:18 | HHI.HP ---
[facility] Admission Diagnosis pyelonephritis Diagnoses: (1) Sepsis Diagnosis: Principal (2) UTI (urinary tract infection) Diagnosis: Principal (3) Hypokalemia Diagnosis: Principal (4) DELORES (acute kidney injury) Diagnosis: Principal (5) Bladder cancer Diagnosis: Principal Travel History International Travel<30 Days: No Contact w/Intl Traveler <30 Da: No Traveled to Known Affected Are: No History of Present Illness This is a 71-year-old male with PMH of Bladder CA s/p Bladder Reconstruction, Recurrent UTI, HTN and h/o CVA who presented to the ER w/ complaints of dysuria and frequency typical of his previous episodes of UTI. States he's had recurrent UTI after undergoing Bladder Reconstruction as he self-catheterizes, and usually needs admission to the hospital for IV Abx. Reports associated fever/chills. Follows w/ his Urologist at the [place], has upcoming appt this Tu. On arrival, BP 133/71, HR 122, O2 sat 97% on RA, Temp 100.8. CBC unremarkable except for elevated neutrophil count. Creatinine 1.59, previously 1.03 on 11/27/16. K+ 3.3. U/a w/ UTI. S/p Blood/Urine Cultures and Rocephin in ER. Review of Systems Except as stated in HPI: all other systems reviewed are Neg ROS: 14 point review of systems otherwise negative. Past Family Social History Past Medical History PMH: Bladder CA s/p Bladder Reconstruction, Recurrent UTI, HTN and h/o CVA Past Surgical History PAST SURGICAL HISTORY: Hernia Repair, Bladder Reconstruction, Cervical Fusion, Tonsillectomy Allergies: Coded Allergies: Sulfa (Sulfonamide Antibiotics) (Unverified Allergy, Severe, RASH/HIVES/ ITCHING, 01/02/17) Family History PAST FAMILY HISTORY: Reviewed. No h/o DM or CAD Social History PAST SOCIAL HISTORY: Negative for alcohol, tobacco or drugs. Physical Exam Vital Signs Vital Signs Date Time Temp Pulse Resp B/P (MAP) Pulse Ox O2 Delivery O2 Flow Rate FiO2 04/14/17 18:40 98 Room Air 04/14/17 17:47 18 04/14/17 17:33 100.8 122 14 133/71 (91) 97 Physical Exam PE: GENERAL: Pleasant elderly white male in no acute distress, complaining of headache. at bedside. HEENT: PERRLA, EOMI. No scleral icterus or conjunctival pallor. No lid lag or facial droop. CARDIOVASCULAR: Regular rate and rhythm. No obvious murmurs to auscultation. No chest tenderness to palpation. RESPIRATORY: No obvious rhonchi or wheezing. Clear to auscultation. Breath sounds equal bilaterally. GASTROINTESTINAL: Abdomen soft, non-tender, nondistended. BS normal. MUSCULOSKELETAL: Extremities without clubbing, cyanosis, or edema. No obvious deformities. NEUROLOGICAL: Awake, alert and oriented x4. No focal neurologic deficits. Moving both upper and lower extremities spontaneously. Laboratory Laboratory Tests Test 04/14/17 18:00 04/14/17 18:35 White Blood Count 10.3 Red Blood Count 4.16 Hemoglobin 13.5 Hematocrit 39.3 Mean Corpuscular Volume 94.5 Mean Corpuscular Hemoglobin 32.4 Mean Corpuscular Hemoglobin Concent 34.3 Red Cell Distribution Width 13.8 Platelet Count 154 Mean Platelet Volume 7.2 Neutrophils (%) (Auto) 86.1 Lymphocytes (%) (Auto) 7.2 Monocytes (%) (Auto) 6.4 Eosinophils (%) (Auto) 0.1 Basophils (%) (Auto) 0.2 Neutrophils # (Auto) 8.9 Lymphocytes # (Auto) 0.7 Monocytes # (Auto) 0.7 Eosinophils # (Auto) 0.0 Basophils # (Auto) 0.0 CBC Comment DIFF FINAL Differential Comment Blood Urea Nitrogen 23 Creatinine 1.59 Random Glucose 123 Total Protein 8.1 Albumin 3.5 Calcium Level 8.8 Alkaline Phosphatase 89 Aspartate Amino Transf (AST/SGOT) 29 Alanine Aminotransferase (ALT/SGPT) 33 Total Bilirubin 0.8 Sodium Level 132 Potassium Level 3.3 Chloride Level 96 Carbon Dioxide Level 27.0 Anion Gap 9 Estimat Glomerular Filtration Rate 43 Urine Color YELLOW Urine Turbidity CLEAR Urine pH 6.5 Urine Specific [place] 1.009 Urine Protein 30 Urine Glucose (UA) NEG Urine Ketones NEG Urine Occult Blood SMALL Urine Nitrite NEG Urine Bilirubin NEG Urine Urobilinogen LESS THAN 2.0 Urine Leukocyte Esterase LARGE Urine RBC 15 Urine WBC 36 Urine Squamous Epithelial Cells <1 Urine Amorphous Sediment RARE Urine Bacteria FEW Urine Mucus FEW Microscopic Urinalysis Comment CULTURE INDICATED Date/Time Source Procedure Growth Status 04/14/17 18:05 Blood Peripheral Aerobic Blood Culture Pending Received 04/14/17 18:05 Blood Peripheral Anaerobic Blood Culture Pending Received 04/14/17 18:35 Urine Random Urine Urine Culture Pending Received Result Diagram: 04/14/17 1800 04/14/17 1800 Caprinzena VTE Risk Assessment Caprini VTE Risk Assessment: No/Low Risk (score <= 1) Caprini Risk Assessment Model Point Value = 1 Point Value = 2 Point Value = 3 Point Value = 5 Age 41-60 Minor surgery BMI > 25 kg/m2 Swollen legs Varicose veins or History of unexplained or recurrent spontaneous Oral contraceptives or hormone replacement Sepsis (< 1 month) Serious lung disease, including pneumonia (< 1 month) Abnormal pulmonary function Acute myocardial infarction Congestive heart failure (< 1 month) History of inflammatory bowel disease Medical patient at bed rest Age 61-74 Arthroscopic surgery Major open surgery (> 45 min) Laparoscopic surgery (> 45 min) Malignancy Confined to bed (> 72 hours) Immobilizing plaster cast Central venous access Age >= 75 History of VTE Family history of VTE Factor V Leiden Prothrombin [id number] Lupus anticoagulant Anticardiolipin antibodies Elevated serum homocysteine Heparin-induced thrombocytopenia Other congenital or acquired thrombophilia Stroke (< 1 month) Elective arthroplasty Hip, pelvis, or leg fracture Acute spinal cord injury (< 1 month) Prophylaxis Regimen Total Risk Factor Score Risk Level Prophylaxis Regimen 0-1 Low Early ambulation 2 Moderate Order ONE of the following: *Sequential Compression Device (SCD) *Heparin 5000 units SQ BID 3-4 Higher Order ONE of the following medications: *Heparin 5000 units SQ TID *Enoxaparin/Lovenox 40 mg SQ daily (WT < 150 kg, CrCl > 30 mL/min) *Enoxaparin/Lovenox 30 mg SQ daily (WT < 150 kg, CrCl > 10-29 mL/min) *Enoxaparin/Lovenox 30 mg SQ BID (WT < 150 kg, CrCl > 30 mL/min) AND/OR *Sequential Compression Device (SCD) 5 or more Highest Order ONE of the following medications: *Heparin 5000 units SQ TID (Preferred with Epidurals) *Enoxaparin/Lovenox 40 mg SQ daily (WT < 150 kg, CrCl > 30 mL/min) *Enoxaparin/Lovenox 30 mg SQ daily (WT < 150 kg, CrCl > 10-29 mL/min) *Enoxaparin/Lovenox 30 mg SQ BID (WT < 150 kg, CrCl > 30 mL/min) AND *Sequential Compression Device (SCD) Assessment and Plan Problem List: (1) Sepsis ICD Code: A41.9 - Sepsis, unspecified organism Status: Acute (2) UTI (urinary tract infection) ICD Code: N39.0 - Urinary tract infection, site not specified Status: Acute (3) Hypokalemia ICD Code: E87.6 - Hypokalemia (4) DELORES (acute kidney injury) ICD Code: N17.9 - Acute kidney failure, unspecified Status: Acute (5) Bladder cancer ICD Code: C67.9 - Malignant neoplasm of bladder, unspecified Status: Acute Assessment and Plan A/P: 1. Sepsis: Temp 100.8, HR 120's, Source-UTI. S/p Blood/Urine Cultures and Rocephin IV in ER, follow up cultures, continue IV Abx. 2. UTI: h/o Recurrent UTI, +self catheterizations daily, U/a w/ UTI. S/p Rocephin as above, continue w/ IV Abx. IVF for hydration. 3. Hypokalemia: Mild. K+ 3.3. Will recheck and replace as needed. 4. DELORES: Creatinine 1.59, previously 1.03 on 11/27/16. IVF for hydration, repeat labs in a.m. 5. Bladder CA: s/p Bladder Reconstruction, follows w/ Urologist at [place], has upcoming appt this Sunday. 6. DVT Prophylaxis: SCD/Teds. 7. Social work for d/c planning as needed. 8. Case discussed w/ ER physician at length. Physician Certification 2 Midnight Certification Type: Admission for Inpatient Services Order for Inpatient Services The services are ordered in accordance with Medicare regulations or non- Medicare payer requirements, as applicable. In the case of services not specified as inpatient-only, they are appropriately provided as inpatient services in accordance with the 2-midnight benchmark. Estimated LOS (days): 2 days is the estimated time the patient will need to remain in the hospital, assuming treatment plan goals are met and no additional complications. Post-Hospital Plan: Not yet determined Andie Mullen MD Apr 14, 2017 19:18
[2017-04-14] MEDS: MORPHINE SULFATE 4 MG/ML INJ IV PUSH PRN (19:41)
[2017-04-14 20:40] VITALS: BP 120/66; PULSE 118; RESP 18; TEMP 101.4; O2SAT 96
[2017-04-14] MEDS: SODIUM CHLORIDE 0.9% FLUSH 10 ML FLUSH IV FLUSH SCH (21:51)
[2017-04-14] MEDS: DOCUSATE SODIUM 50 MG/SENNA 8.6 MG TAB PO SCH (21:52)
[2017-04-14] MEDS ORDERED: DULO20 PO (22:15)
[2017-04-14] MEDS ORDERED: NITR1CAP24 PO (22:19)
[2017-04-14] MEDS: ACETAMINOPHEN/HYDROcodone 325 MG/5 MG TAB PO PRN (22:24)
[2017-04-14 23:48] VITALS: BP 115/53; PULSE 118; RESP 20; TEMP 101.5; O2SAT 93
[2017-04-15] VITALS (7 sets, daily range): BP systolic 101–121; BP diastolic 51–68; PULSE 77–107; RESP 18–20; TEMP 98.6–101.2; O2SAT 94–100
[2017-04-15] MEDS: ACETAMINOPHEN/HYDROcodone 325 MG/5 MG TAB PO PRN ×2 (03:45→08:13)
[2017-04-15] MEDS: SODIUM CHLOR 0.9% 1000 ML INJ 1,000 ML IV SCH ×4 (05:20→23:48)
[2017-04-15 07:47] LABS: AUTOMATED NEUTROPHIL # 4.9 TH/MM3 (1.8-7.7); BASOPHIL % 0.2 % (0.0-2.0); EOSINOPHIL % 0.2 % (0.0-4.0); HEMATOCRIT 32.6 % (39.0-51.0); HEMO FLAGS DIFF FINAL; LYMPH % 8.5 % (9.0-44.0); LYMPHOCYTE # 0.5 TH/MM3 (1.0-4.8); MEAN CELL VOLUME 95.5 FL (80.0-100.0); MEAN CORPUSCULAR HEMOGLOBIN 32.5 PG (27.0-34.0); MONO % 10.9 % (0.0-8.0); NEUT % 80.2 % (16.0-70.0); PLATELET COUNT 104 TH/MM3 (150-450); RED BLOOD COUNT 3.42 MIL/MM3 (4.50-5.90); RED CELL DISTRIBUTION WIDTH 13.7 % (11.6-17.2); WHITE BLOOD COUNT 6.2 TH/MM3 (4.0-11.0)
[2017-04-15] MEDS: DOCUSATE SODIUM 50 MG/SENNA 8.6 MG TAB PO SCH ×2 (08:13→20:44)
[2017-04-15] MEDS: SODIUM CHLORIDE 0.9% FLUSH 10 ML FLUSH IV FLUSH SCH ×2 (08:22→20:44)
[2017-04-15 08:39] LABS: ALKALINE PHOSPHATASE 82 U/L (45-117); ALT (GPT) 22 U/L (12-78); ANION GAP 9 MEQ/L (5-15); AST (GOT) 24 U/L (15-37); BICARBONATE 24.8 MEQ/L (21.0-32.0); BLOOD UREA NITROGEN 17 MG/DL (7-18); CHLORIDE 101 MEQ/L (98-107); GLOMERULAR FILTRATION RATE 53 ML/MIN (>89); POTASSIUM 3.6 MEQ/L (3.5-5.1); SODIUM (NA) 135 MEQ/L (136-145); TOTAL BILIRUBIN ADULT 0.3 MG/DL (0.2-1.0)
[2017-04-15] MEDS: MORPHINE SULFATE 4 MG/ML INJ IV PUSH PRN (11:49)
--- NOTE | 2017-04-15 11:57 | HHI.PR ---
Subjective Remarks This is a 71-year-old male with PMH of Bladder CA s/p Bladder Reconstruction, Recurrent UTI, HTN and h/o CVA who presented to the ER w/ complaints of dysuria and frequency typical of his previous episodes of UTI. States he's had recurrent UTI after undergoing Bladder Reconstruction as he self-catheterizes, and usually needs admission to the hospital for IV Abx. Reports associated fever/chills. Follows w/ his Urologist at the [place], has upcoming appt this Tues. On arrival, BP 133/71, HR 122, O2 sat 97% on RA, Temp 100.8. CBC unremarkable except for elevated neutrophil count. Creatinine 1.59, previously 1.03 on 11/27/16. K+ 3.3. U/a w/ UTI. S/p Blood/Urine Cultures and Rocephin in ER. 04-15 states his headache is not controlled with [place] will switch to Percocet Discussed with patient and RN Continue antibiotics AM LABS CM CONSULT Objective Vitals Vital Signs Date Time Temp Pulse Resp B/P (MAP) Pulse Ox O2 Delivery O2 Flow Rate FiO2 04/15/17 08:00 101.2 107 18 121/68 (85) 100 04/15/17 04:00 98.8 103 18 117/56 (76) 95 04/15/17 00:00 98.7 04/14/17 23:48 101.5 118 20 115/53 (73) 93 04/14/17 20:40 101.4 118 18 120/66 (84) 96 04/14/17 18:40 98 Room Air 04/14/17 17:47 18 04/14/17 17:33 100.8 122 14 133/71 (91) 97 I/O 04/14/17 04/14/17 04/14/17 04/15/17 04/15/17 04/15/17 07:00 15:00 23:00 07:00 15:00 23:00 Intake Total 100 ml 1608 ml Output Total 1950 ml Balance 100 ml -342 ml Intake Oral 480 ml IV Total 100 ml 1128 ml Output Urine Total 1950 ml # Bowel Movements 0 Result Diagram: 04/15/17 0604/15/17 06 Other Results Laboratory Tests Test 04/14/17 18:00 04/14/17 18:35 04/15/17 06:21 White Blood Count 10.3 TH/MM3 6.2 TH/MM3 Red Blood Count 4.16 MIL/MM3 3.42 MIL/MM3 Hemoglobin 13.5 GM/DL 11.1 GM/DL Hematocrit 39.3 % 32.6 % Mean Corpuscular Volume 94.5 FL 95.5 FL Mean Corpuscular Hemoglobin 32.4 PG 32.5 PG Mean Corpuscular Hemoglobin Concent 34.3 % 34.0 % Red Cell Distribution Width 13.8 % 13.7 % Platelet Count 154 TH/MM3 104 TH/MM3 Mean Platelet Volume 7.2 FL 7.1 FL Neutrophils (%) (Auto) 86.1 % 80.2 % Lymphocytes (%) (Auto) 7.2 % 8.5 % Monocytes (%) (Auto) 6.4 % 10.9 % Eosinophils (%) (Auto) 0.1 % 0.2 % Basophils (%) (Auto) 0.2 % 0.2 % Neutrophils # (Auto) 8.9 TH/MM3 4.9 TH/MM3 Lymphocytes # (Auto) 0.7 TH/MM3 0.5 TH/MM3 Monocytes # (Auto) 0.7 TH/MM3 0.7 TH/MM3 Eosinophils # (Auto) 0.0 TH/MM3 0.0 TH/MM3 Basophils # (Auto) 0.0 TH/MM3 0.0 TH/MM3 CBC Comment DIFF FINAL DIFF FINAL Differential Comment Blood Urea Nitrogen 23 MG/DL 17 MG/DL Creatinine 1.59 MG/DL 1.33 MG/DL Random Glucose 123 MG/DL 172 MG/DL Total Protein 8.1 GM/DL 6.3 GM/DL Albumin 3.5 GM/DL 2.6 GM/DL Calcium Level 8.8 MG/DL 8.1 MG/DL Alkaline Phosphatase 89 U/L 82 U/L Aspartate Amino Transf (AST/SGOT) 29 U/L 24 U/L Alanine Aminotransferase (ALT/SGPT) 33 U/L 22 U/L Total Bilirubin 0.8 MG/DL 0.3 MG/DL Sodium Level 132 MEQ/L 135 MEQ/L Potassium Level 3.3 MEQ/L 3.6 MEQ/L Chloride Level 96 MEQ/L 101 MEQ/L Carbon Dioxide Level 27.0 MEQ/L 24.8 MEQ/L Anion Gap 9 MEQ/L 9 MEQ/L Estimat Glomerular Filtration Rate 43 ML/MIN 53 ML/MIN Urine Color YELLOW Urine Turbidity CLEAR Urine pH 6.5 Urine Specific [place] 1.009 Urine Protein 30 mg/dL Urine Glucose (UA) NEG mg/dL Urine Ketones NEG mg/dL Urine Occult Blood SMALL Urine Nitrite NEG Urine Bilirubin NEG Urine Urobilinogen LESS THAN 2.0 MG/DL Urine Leukocyte Esterase LARGE Urine RBC 15 /hpf Urine WBC 36 /hpf Urine Squamous Epithelial Cells <1 /hpf Urine Amorphous Sediment RARE Urine Bacteria FEW /hpf Urine Mucus FEW /lpf Microscopic Urinalysis Comment CULTURE INDICATED Objective Remarks GENERAL: Awake alert and oriented talkative and cooperative SKIN: Warm and dry. HEAD: Atraumatic. Normocephalic. EYES: Pupils equal and round. No scleral icterus. No injection or drainage. Extraocular muscles intact ENT: No nasal bleeding or discharge. Mucous membranes pink and moist. Tongue is midline NECK: Trachea midline. No JVD. Supple CARDIOVASCULAR: Regular rate and rhythm. S1 and S2 no S3-S4 RESPIRATORY: No accessory muscle use. Clear to auscultation. Breath sounds equal bilaterally. GASTROINTESTINAL: Abdomen soft, non-tender, nondistended. Hepatic and splenic margins not palpable. MUSCULOSKELETAL: Extremities without clubbing, cyanosis, or edema. No obvious deformities. NEUROLOGICAL: Awake and alert. No obvious cranial nerve deficits. Motor grossly within normal limits. Five out of 5 muscle strength in the arms and legs. Normal speech. PSYCHIATRIC: Appropriate mood and affect; insight and judgment normal. Medications and IVs Current Medications Ceftriaxone Sodium 1000 mg/ Sodium Chloride 100 ml @ 200 mls/hr ONCE ONCE IV Last administered on 04/14/17 18:40; Start 04/14/17 at 18:15; Stop 04/14/17 at 18:44; Status DC Sodium Chloride 1,000 ml @ 125 mls/hr Q8H IV Last administered on 04/14/17 18:40; Start 04/14/17 at 18:15; Stop 04/14/17 at 19:35; Status DC Ceftriaxone Sodium 1000 mg/ Sodium Chloride 100 ml @ 200 mls/hr Q24H IV ; Start 04/15/17 at 18:00 Sodium Chloride 1,000 ml @ 100 mls/hr Q10H IV Last administered on 04/15/17 05:20; Start 04/14/17 at 19:11 Sodium Chloride (NS Flush) 2 ml UNSCH PRN IV FLUSH FLUSH AFTER USING IV ACCESS ; Start 04/14/17 at 19:15 Sodium Chloride (NS Flush) 2 ml BID IV FLUSH ; Start 04/14/17 at 21:00 Ondansetron HCl (Zofran Inj) 4 mg Q6H PRN IVP NAUSEA OR VOMITING Last administered on 04/14/17 19:42; Start 04/14/17 at 19:15 Acetaminophen (Tylenol) 650 mg Q6H PRN PO FEVER/PAIN SCALE 1 TO 2 Last administered on 04/14/17 21:52; Start 04/14/17 at 19:15 Acetaminophen/ Hydrocodone Bitart ([place] 5-325 Mg) 1 tab Q4H PRN PO PAIN SCALE 3 TO 5 Last administered on 04/15/17 08:13; Start 04/14/17 at 19:15 Morphine Sulfate (Morphine Inj) 2 mg Q3H PRN IV PUSH Pain 6-10; Last administered on 04/14/17 19:41; Start 04/14/17 at 19:15 Senna/Docusate Sodium (Ryann-Colace) 1 tab BID PO Last administered on 08:13; Start 04/14/17 at 21:00 Magnesium Hydroxide (Milk Of Magnesia Liq) 30 ml Q12H PRN PO Mild constipation ; Start 04/14/17 at 19:15 Sennosides (Senokot) 17.2 mg Q12H PRN PO Moderate constipation; Start at 19:15 Bisacodyl (Dulcolax Supp) 10 mg DAILY PRN RECTAL SEVERE CONSITIPATION; Start 04/14/17 at 19:15 Lactulose (Lactulose Liq) 30 ml DAILY PRN PO SEVERE CONSITIPATION; Start 04/14 at 19:15 A/P Problem List: (1) Sepsis ICD Code: A41.9 - Sepsis, unspecified organism Status: Acute (2) UTI (urinary tract infection) ICD Code: N39.0 - Urinary tract infection, site not specified Status: Acute (3) Hypokalemia ICD Code: E87.6 - Hypokalemia (4) DELORES (acute kidney injury) ICD Code: N17.9 - Acute kidney failure, unspecified Status: Acute (5) Bladder cancer ICD Code: C67.9 - Malignant neoplasm of bladder, unspecified Status: Acute Assessment and Plan 1. Sepsis: Temp 100.8, HR 120's, Source-UTI. S/p Blood/Urine Cultures and Rocephin IV in ER, follow up cultures, continue IV Abx. 2. UTI: h/o Recurrent UTI, +self catheterizations daily, U/a w/ UTI. S/p Rocephin as above, continue w/ IV Abx. IVF for hydration. 3. Hypokalemia: Mild. K+ 3.3. Will recheck and replace as needed. 4. DELORES: Creatinine 1.59, previously 1.03 on 11/27/16. IVF for hydration, repeat labs in a.m. 5. Bladder CA: s/p Bladder Reconstruction, follows w/ Urologist at [place], has upcoming appt this Sunday. 6. DVT Prophylaxis: SCD/Teds. Discharge Planning PENDING URINE CULTURES Klever Tinoco DO Apr 15, 2017 11:57
[2017-04-15] MEDS ORDERED: SENNOSIDES 8.6 MG TAB PO PRN (12:00)
[2017-04-15] MEDS ORDERED: BISACODYL 10 MG SUPP RECTAL PRN (12:00)
[2017-04-15] MEDS ORDERED: ACETAMINOPHEN 325 MG TAB PO PRN ×2 (12:00)
[2017-04-15] MEDS ORDERED: SODIUM CHLORIDE 0.9% FLUSH 10 ML FLUSH IV FLUSH PRN (12:00)
[2017-04-15] MEDS ORDERED: NALOXONE HCL 0.4 MG/ML AMP IV PUSH PRN (12:00)
[2017-04-15] MEDS ORDERED: oxyCODONE/ACETAMINOPHEN 5 MG/325 MG TAB PO PRN (12:00)
[2017-04-15] MEDS ORDERED: LACTULOSE SYRUP 20 GM/30 ML CUP PO PRN (12:00)
[2017-04-15] MEDS ORDERED: ZOLPIDEM TARTRATE 5 MG TAB PO PRN (12:00)
[2017-04-15] MEDS ORDERED: PROCHLORPERAZINE 25 MG SUPP RECTAL PRN (12:00)
[2017-04-15] MEDS ORDERED: MAGNESIUM HYDROXIDE SUSP 30 ML CUP PO PRN (12:00)
[2017-04-15] MEDS ORDERED: MORPHINE SULFATE 4 MG/ML INJ IV PUSH PRN ×2 (12:00)
[2017-04-15 12:07] LABS: HEMOGLOBIN A1a 1.8 %; HEMOGLOBIN A1b 2.2 %; HEMOGLOBIN Ao 82.8 %; HEMOGLOBIN LA1C 2.7 %; HEMOGLOBIN P3 4.4 %
[2017-04-15 12:16] LABS: AUTOMATED NEUTROPHIL # 4.1 TH/MM3 (1.8-7.7); BASOPHIL % 0.1 % (0.0-2.0); EOSINOPHIL % 0.1 % (0.0-4.0); HEMATOCRIT 33.8 % (39.0-51.0); HEMO FLAGS DIFF FINAL; LYMPH % 9.2 % (9.0-44.0); LYMPHOCYTE # 0.5 TH/MM3 (1.0-4.8); MEAN CELL VOLUME 94.8 FL (80.0-100.0); MEAN CORPUSCULAR HEMOGLOBIN 31.5 PG (27.0-34.0); MEAN CORPUSCULAR HGB CONC 33.3 % (32.0-36.0); MONO % 9.4 % (0.0-8.0); NEUT % 81.2 % (16.0-70.0); PLATELET COUNT 123 TH/MM3 (150-450); RED BLOOD COUNT 3.57 MIL/MM3 (4.50-5.90); RED CELL DISTRIBUTION WIDTH 13.5 % (11.6-17.2); WHITE BLOOD COUNT 5.1 TH/MM3 (4.0-11.0)
--- NOTE | 2017-04-15 12:17 | RADRPT ---
EXAM DATE/TIME: 04/15/2017 11:44 [place] COMPARISON: CHEST SINGLE AP, November 25, 2016, 20:52. INDICATIONS : Short of breath. Sepsis. MEDICAL HISTORY : Cardiovascular disease. Carcinoma, bladder. Neobladder. SURGICAL HISTORY : Umbilical hernia repair. Neobladder, Infusaport, Cervical fusion. ENCOUNTER: Initial ACUITY: 1 day PAIN SCORE: 0/10 LOCATION: Bilateral chest FINDINGS: Ill-defined infiltrate lower lateral left lung causes loss of delineation of the apex of the left hea rt border. Left hemidiaphragm is well delineated. Right lung is clear. The heart is normal size. CONCLUSION: Partially consolidated infiltrate in the lower lateral left lung. Hitesh Torres MD on April 15, 2017 at 12:15 Board Certified Radiologist. This report was verified electronically.
[2017-04-15] MEDS: GABAPENTIN 400 MG CAP PO SCH ×2 (12:25→16:55)
[2017-04-15] MEDS: LACTOBACILLUS ACIDOPHILUS TAB PO SCH ×2 (12:25→16:55)
[2017-04-15 12:31] LABS: ALT (GPT) 24 U/L (12-78); ANION GAP 6 MEQ/L (5-15); AST (GOT) 17 U/L (15-37); BICARBONATE 29.8 MEQ/L (21.0-32.0); BLOOD UREA NITROGEN 14 MG/DL (7-18); CHLORIDE 101 MEQ/L (98-107); GLOMERULAR FILTRATION RATE 54 ML/MIN (>89); POTASSIUM 3.5 MEQ/L (3.5-5.1); SODIUM (NA) 137 MEQ/L (136-145)
[2017-04-15 12:40] LABS: ALKALINE PHOSPHATASE 77 U/L (45-117); TOTAL BILIRUBIN ADULT 0.3 MG/DL (0.2-1.0)
[2017-04-15 13:12] LABS: APTT (PATIENT) 29.4 SEC (24.3-30.1); PROTHROMBIN TIME - PATIENT 11.1 SEC (9.8-11.6)
[2017-04-15] MEDS: MEPERIDINE HCL 50 MG TAB PO PRN (16:55)
[2017-04-15] MEDS: cefTRIAXone INJ 1,000 MG in SODIUM CHLORIDE 0.9% INJ 100 ML IV SCH (16:56)
[2017-04-15] MEDS: ONDANSETRON HCL 4 MG/2 ML VIAL IVP PRN ×2 (18:11→23:32)
[2017-04-15] MEDS: oxyCODONE/ACETAMINOPHEN 10 MG/325 MG TAB PO PRN (19:43)
[2017-04-15] MEDS: ACYCLOVIR 200 MG CAP PO SCH (20:44)
[2017-04-15] MEDS ORDERED: [UNRECOGNIZED DRUG - OTHER] PO SCH (21:00)
[2017-04-16] VITALS (7 sets, daily range): BP systolic 95–137; BP diastolic 56–72; PULSE 82–113; RESP 16–18; TEMP 96.9–98.3; O2SAT 92–98
[2017-04-16 06:36] LABS: ANION GAP 5 MEQ/L (5-15); AST (GOT) 17 U/L (15-37); BLOOD UREA NITROGEN 12 MG/DL (7-18); CHLORIDE 104 MEQ/L (98-107); GLOMERULAR FILTRATION RATE 59 ML/MIN (>89); MAGNESIUM 1.9 MG/DL (1.5-2.5); POTASSIUM 3.7 MEQ/L (3.5-5.1); SODIUM (NA) 139 MEQ/L (136-145)
[2017-04-16 06:38] LABS: MEAN CELL VOLUME 95.1 FL (80.0-100.0); MEAN CORPUSCULAR HEMOGLOBIN 31.6 PG (27.0-34.0); MEAN CORPUSCULAR HGB CONC 33.2 % (32.0-36.0); PLATELET COUNT 112 TH/MM3 (150-450); RED BLOOD COUNT 3.36 MIL/MM3 (4.50-5.90); RED CELL DISTRIBUTION WIDTH 13.5 % (11.6-17.2)
[2017-04-16 06:41] LABS: ALKALINE PHOSPHATASE 70 U/L (45-117); ALT (GPT) 21 U/L (12-78); FREE T4 1.09 NG/DL (0.76-1.46); TOTAL BILIRUBIN ADULT 0.2 MG/DL (0.2-1.0)
[2017-04-16 06:44] LABS: HEMO FLAGS AUTO DIFF
[2017-04-16] MEDS: LACTOBACILLUS ACIDOPHILUS TAB PO SCH ×3 (07:46→15:30)
[2017-04-16] MEDS: GABAPENTIN 400 MG CAP PO SCH ×3 (07:46→17:25)
[2017-04-16] MEDS: ACYCLOVIR 200 MG CAP PO SCH ×2 (07:47→20:54)
[2017-04-16] MEDS: PANTOPRAZOLE SOD 20 MG DELAYED RELEASE TAB PO SCH (07:48)
[2017-04-16] MEDS: DULoxetine HCl DR 20 MG CAP PO SCH (07:48)
[2017-04-16] MEDS: DOCUSATE SODIUM 50 MG/SENNA 8.6 MG TAB PO SCH ×2 (07:48→20:55)
[2017-04-16] MEDS: SODIUM CHLORIDE 0.9% FLUSH 10 ML FLUSH IV FLUSH SCH ×2 (07:48→20:57)
[2017-04-16 09:01] LABS: BANDS 8 % (0-6); EOSINOPHILS 1 % (0-4); PLATELET ESTIMATE SMEAR LOW (NORMAL); PLATELET MORPHOLOGY NORMAL (NORMAL); POLYS (SEG NEUTROPHILS) 60 % (16-70); WBC DIFF SAMPLE 100
[2017-04-16 09:02] LABS: SCAN/DIFF FINAL DIFF MANUAL
[2017-04-16] MEDS: MEPERIDINE HCL 50 MG TAB PO PRN ×5 (10:22→22:55)
--- NOTE | 2017-04-16 11:49 | HHI.PR ---
Subjective Remarks Mr. Sanchez has had a fever overnight, but overall he is starting to feel better on treatments. Cultures have grown out gram-negative rods. No nausea, vomiting, or diarrhea. Objective Vital Signs Date Time Temp Pulse Resp B/P (MAP) Pulse Ox O2 Delivery O2 Flow Rate FiO2 04/16/17 08:00 98.3 88 16 111/65 (80) 92 04/16/17 04:00 98.2 90 18 95/56 (69) 96 04/16/17 00:00 97.4 92 18 119/69 (86) 94 04/15/17 20:00 99.3 89 18 108/60 (76) 94 04/15/17 20:00 91 04/15/17 16:00 99.7 105 20 103/51 (68) 100 04/15/17 12:00 98.6 96 18 101/64 (76) 100 I/O 04/15/17 04/15/17 04/15/17 04/16/17 04/16/17 04/16/17 07:00 15:00 23:00 07:00 15:00 23:00 Intake Total 1608 ml 650 ml 1200 ml 2374 ml Output Total 1950 ml 2100 ml 1250 ml Balance -342 ml 650 ml -900 ml 1124 ml Intake Oral 480 ml 1200 ml 240 ml IV Total 1128 ml 650 ml 2134 ml Output Urine Total 1950 ml 2100 ml 1250 ml # Bowel Movements 0 0 0 Result Diagram: 04/16/1754204/16/17542 Objective Remarks GENERAL: NAD, A&Ox3 HEAD: Normocephalic. NECK: Supple, trachea midline. No lymphadenopathy. EYES: No scleral icterus. No injection or drainage. CARDIOVASCULAR: Regular rate and rhythm without murmurs, gallops, or rubs. RESPIRATORY: Breath sounds equal bilaterally. No accessory muscle use. GASTROINTESTINAL: Abdomen soft, non-tender, nondistended. Surgical scars of abdomen. MUSCULOSKELETAL: No cyanosis, or edema. SKIN: Warm and dry. NEURO: No focal neurological deficitis. A/P Problem List: (1) UTI (urinary tract infection) ICD Code: N39.0 - Urinary tract infection, site not specified Status: Acute (2) Bladder cancer ICD Code: C67.9 - Malignant neoplasm of bladder, unspecified Status: Acute (3) DELORES (acute kidney injury) ICD Code: N17.9 - Acute kidney failure, unspecified Status: Acute (4) Sepsis ICD Code: A41.9 - Sepsis, unspecified organism Status: Acute Assessment and Plan Assessment and Plan 71-year-old male admitted secondary to complicated urinary tract infection Complicated urinary tract infection Neobladder History of bladder cancer Continue Rocephin Continue to monitor urine cultures Transitioned to by mouth treatment will be based on urine culture Cultures are growing gram-negative rods thus far Sepsis Fevers appear to be resolving Continue to monitor carefully Hypokalemia Monitor potassium Replace potassium as needed Acute kidney injury IV fluids Follow renal function for improvement DVT prophylaxis SCDs Discharge Planning PENDING URINE CULTURES Feliciano Sampson MD Apr 16, 2017 11:49
[2017-04-16] MEDS: oxyCODONE/ACETAMINOPHEN 10 MG/325 MG TAB PO PRN ×2 (15:29→20:55)
[2017-04-16] MEDS: ONDANSETRON HCL 4 MG/2 ML VIAL IVP PRN (15:32)
[2017-04-16 16:08] LABS: HEMOGLOBIN A1a 1.1 %; HEMOGLOBIN A1b 2.2 %; HEMOGLOBIN Ao 83.5 %; HEMOGLOBIN LA1C 2.4 %; HEMOGLOBIN P3 5.8 %
[2017-04-16] MEDS: SODIUM CHLOR 0.9% 1000 ML INJ 1,000 ML IV SCH (17:25)
[2017-04-16] MEDS: cefTRIAXone INJ 1,000 MG in SODIUM CHLORIDE 0.9% INJ 100 ML IV SCH (17:28)
[2017-04-17] VITALS: BP 132/74; PULSE 103; RESP 17; TEMP 96.8; O2SAT 95
[2017-04-17] MEDS: SODIUM CHLOR 0.9% 1000 ML INJ 1,000 ML IV SCH ×2 (03:50→04:23)
[2017-04-17 04:00] VITALS: BP 114/73; PULSE 95; RESP 17; TEMP 96.3; O2SAT 95
[2017-04-17] MEDS: MEPERIDINE HCL 50 MG TAB PO PRN ×3 (04:23→10:50)
[2017-04-17] MEDS: LACTOBACILLUS ACIDOPHILUS TAB PO SCH ×2 (07:35→10:49)
[2017-04-17] MEDS: DULoxetine HCl DR 20 MG CAP PO SCH (07:36)
[2017-04-17] MEDS: DOCUSATE SODIUM 50 MG/SENNA 8.6 MG TAB PO SCH (07:36)
[2017-04-17] MEDS: PANTOPRAZOLE SOD 20 MG DELAYED RELEASE TAB PO SCH (07:36)
[2017-04-17] MEDS: ACYCLOVIR 200 MG CAP PO SCH (07:37)
[2017-04-17] MEDS: GABAPENTIN 400 MG CAP PO SCH (07:37)
[2017-04-17] MEDS: SODIUM CHLORIDE 0.9% FLUSH 10 ML FLUSH IV FLUSH SCH (07:38)
[2017-04-17] MEDS: oxyCODONE/ACETAMINOPHEN 10 MG/325 MG TAB PO PRN (07:53)
[2017-04-17 07:58] VITALS: BP 150/83; PULSE 106; RESP 20; TEMP 97.3; O2SAT 93
[2017-04-17 08:15] LABS: HEMATOCRIT 32.4 % (39.0-51.0); MEAN CELL VOLUME 97.1 FL (80.0-100.0); MEAN CORPUSCULAR HEMOGLOBIN 32.3 PG (27.0-34.0); MEAN CORPUSCULAR HGB CONC 33.2 % (32.0-36.0); PLATELET COUNT 125 TH/MM3 (150-450); RED BLOOD COUNT 3.34 MIL/MM3 (4.50-5.90); RED CELL DISTRIBUTION WIDTH 13.6 % (11.6-17.2); WHITE BLOOD COUNT 3.6 TH/MM3 (4.0-11.0)
[2017-04-17 08:25] LABS: HEMO FLAGS AUTO DIFF
[2017-04-17 08:28] LABS: ANION GAP 7 MEQ/L (5-15); AST (GOT) 17 U/L (15-37); BICARBONATE 26.6 MEQ/L (21.0-32.0); BLOOD UREA NITROGEN 16 MG/DL (7-18); CHLORIDE 104 MEQ/L (98-107); GLOMERULAR FILTRATION RATE 55 ML/MIN (>89); POTASSIUM 3.9 MEQ/L (3.5-5.1); SODIUM (NA) 138 MEQ/L (136-145)
[2017-04-17 08:29] LABS: ALT (GPT) 24 U/L (12-78)
[2017-04-17 08:30] LABS: ALKALINE PHOSPHATASE 94 U/L (45-117); TOTAL BILIRUBIN ADULT 0.2 MG/DL (0.2-1.0)
[2017-04-17 09:39] LABS: BANDS 15 % (0-6); EOSINOPHILS 5 % (0-4); METAMYELOCYTES 2 % (0-1); NEUTROPHIL # MANUAL DIFF 1.9 TH/MM3 (1.8-7.7); PLATELET ESTIMATE SMEAR LOW (NORMAL); PLATELET MORPHOLOGY NORMAL (NORMAL); POLYS (SEG NEUTROPHILS) 37 % (16-70); WBC DIFF SAMPLE 100
[2017-04-17 09:40] LABS: SCAN/DIFF FINAL DIFF MANUAL
[2017-04-17] MEDS ORDERED: CIPR500T2 PO (10:30)
[2017-04-17] MEDS ORDERED: LACTTAB8 PO (10:30)
[2017-04-17 11:59] VITALS: BP 114/66; PULSE 99; RESP 18; TEMP 97.9; O2SAT 94
[2017-04-17] MEDS ORDERED: OXYC1TAB63 PO (12:10)
--- NOTE | 2017-04-17 13:27 | HHI.DS ---
Discharge Summary Admission Date Apr 14, 2017 at 19:05 Discharge Date: Apr 17, 2017 Admitting Diagnosis pyelonephritis (1) Sepsis ICD Code: A41.9 - Sepsis, unspecified organism Status: Acute (2) UTI (urinary tract infection) ICD Code: N39.0 - Urinary tract infection, site not specified Status: Acute (3) Hypokalemia ICD Code: E87.6 - Hypokalemia (4) DELORES (acute kidney injury) ICD Code: N17.9 - Acute kidney failure, unspecified Status: Acute (5) Bladder cancer ICD Code: C67.9 - Malignant neoplasm of bladder, unspecified Status: Acute Procedures None Brief History - From Admission This is a 71-year-old male with PMH of Bladder CA s/p Bladder Reconstruction, Recurrent UTI, HTN and h/o CVA who presented to the ER w/ complaints of dysuria and frequency typical of his previous episodes of UTI. States he's had recurrent UTI after undergoing Bladder Reconstruction as he self-catheterizes, and usually needs admission to the hospital for IV Abx. Reports associated fever/chills. Follows w/ his Urologist at the [place], has upcoming appt this . On arrival, BP 133/71, HR 122, O2 sat 97% on RA, Temp 100.8. CBC unremarkable except for elevated neutrophil count. Creatinine 1.59, previously 1.03 on 11/27/16. K+ 3.3. U/a w/ UTI. S/p Blood/Urine Cultures and Rocephin in ER. CBC/BMP: 04/17/17 0620 04/17/17 0620 Significant Findings Laboratory Tests Test 04/14/17 18:00 04/14/17 18:35 04/15/17 06:21 04/15/17 10:48 Red Blood Count 4.16 MIL/MM3 (4.50-5.90) 3.42 MIL/MM3 (4.50-5.90) 3.57 MIL/MM3 (4.50-5.90) Neutrophils (%) (Auto) 86.1 % (16.0-70.0) 80.2 % (16.0-70.0) 81.2 % (16.0-70.0) Lymphocytes (%) (Auto) 7.2 % (9.0-44.0) 8.5 % (9.0-44.0) Neutrophils # (Auto) 8.9 TH/MM3 (1.8-7.7) Lymphocytes # (Auto) 0.7 TH/MM3 (1.0-4.8) 0.5 TH/MM3 (1.0-4.8) 0.5 TH/MM3 (1.0-4.8) Blood Urea Nitrogen 23 MG/DL (7-18) Creatinine 1.59 MG/DL (0.60-1.30) 1.33 MG/DL (0.60-1.30) 1.31 MG/DL (0.60-1.30) Random Glucose 123 MG/DL (74-106) 172 MG/DL (74-106) 155 MG/DL (74-106) Sodium Level 132 MEQ/L (136-145) 135 MEQ/L (136-145) Potassium Level 3.3 MEQ/L (3.5-5.1) Chloride Level 96 MEQ/L (98-107) Estimat Glomerular Filtration Rate 43 ML/MIN (>89) 53 ML/MIN (>89) 54 ML/MIN (>89) Urine Protein 30 mg/dL (NEG-TRACE) Urine Occult Blood SMALL (NEG) Urine Leukocyte Esterase LARGE (NEG) Urine RBC 15 /hpf (0-3) Urine WBC 36 /hpf (0-5) Urine Bacteria FEW /hpf (NONE) Urine Mucus FEW /lpf (OCC) Hemoglobin 11.1 GM/DL (13.0-17.0) 11.2 GM/DL (13.0-17.0) Hematocrit 32.6 % (39.0-51.0) 33.8 % (39.0-51.0) Platelet Count 104 TH/MM3 (150-450) 123 TH/MM3 (150-450) Monocytes (%) (Auto) 10.9 % (0.0-8.0) 9.4 % (0.0-8.0) Total Protein 6.3 GM/DL (6.4-8.2) 6.3 GM/DL (6.4-8.2) Albumin 2.6 GM/DL (3.4-5.0) 2.7 GM/DL (3.4-5.0) Calcium Level 8.1 MG/DL (8.5-10.1) 8.1 MG/DL (8.5-10.1) Phosphorus Level 1.7 MG/DL (2.5-4.9) Test 04/15/17 12:48 04/16/17 05:43 04/17/17 06:20 White Blood Count 3.0 TH/MM3 (4.0-11.0) 3.6 TH/MM3 (4.0-11.0) Red Blood Count 3.36 MIL/MM3 (4.50-5.90) 3.34 MIL/MM3 (4.50-5.90) Hemoglobin 10.6 GM/DL (13.0-17.0) 10.8 GM/DL (13.0-17.0) Hematocrit 32.0 % (39.0-51.0) 32.4 % (39.0-51.0) Platelet Count 112 TH/MM3 (150-450) 125 TH/MM3 (150-450) Band Neutrophils % 8 % (0-6) 15 % (0-6) Monocytes % 13 % (0-8) 12 % (0-8) Platelet Estimate LOW (NORMAL) LOW (NORMAL) Random Glucose 111 MG/DL (74-106) Total Protein 6.0 GM/DL (6.4-8.2) Albumin 2.5 GM/DL (3.4-5.0) 2.6 GM/DL (3.4-5.0) Calcium Level 8.1 MG/DL (8.5-10.1) 8.4 MG/DL (8.5-10.1) Estimat Glomerular Filtration Rate 59 ML/MIN (>89) 55 ML/MIN (>89) Eosinophils % 5 % (0-4) Metamyelocytes 2 % (0-1) PE at Discharge GENERAL: Awake alert and oriented talkative and cooperative SKIN: Warm and dry. HEAD: Atraumatic. Normocephalic. EYES: Pupils equal and round. No scleral icterus. No injection or drainage. Extraocular muscles intact ENT: No nasal bleeding or discharge. Mucous membranes pink and moist. Tongue is midline NECK: Trachea midline. No JVD. Supple CARDIOVASCULAR: Regular rate and rhythm. S1 and S2 no S3-S4 RESPIRATORY: No accessory muscle use. Clear to auscultation. Breath sounds equal bilaterally. GASTROINTESTINAL: Abdomen soft, non-tender, nondistended. Hepatic and splenic margins not palpable. MUSCULOSKELETAL: Extremities without clubbing, cyanosis, or edema. No obvious deformities. NEUROLOGICAL: Awake and alert. No obvious cranial nerve deficits. Motor grossly within normal limits. Five out of 5 muscle strength in the arms and legs. Normal speech. PSYCHIATRIC: Appropriate mood and affect; insight and judgment normal. Hospital Course Mr. Sanchez is a 71-year-old male. He was admitted secondary to complicated urinary tract infection secondary to history of bladder cancer in neobladder. Fevers and sepsis were present at time of admit. Patient has been treated with Rocephin while here and has resolution of fevers. Cultures have resulted today showing positive sensitivity to ciprofloxacin. Patient's treatment is transitioned to ciprofloxacin and he stable for discharge home today per she will continue ciprofloxacin for 1 more week. Pt Condition on Discharge: Stable Discharge Disposition: Discharge Home Discharge Time: <= 30 minutes Discharge Instructions DIET: Follow Instructions for: As Tolerated, No Restrictions Activities you can perform: Regular-No Restrictions Follow up Referrals: PCP Follow-up - 2 Weeks New Medications: Ciprofloxacin (Ciprofloxacin) 500 Mg Tab 500 MG PO BID for Infection, #14 TAB 0 Refills Use Cymbalta every other day while on this treatment, and after treatment complete resume regular Cymbalta dosing. Lactobacillus Acidophilus (Lactobacillus Acidophilus) 1 Billion Cell Tab 1 TAB PO TIDAC for Nutritional Supplement, #30 TAB 0 Refills Oxycodone HCl/Acetaminophen (Oxycodone-Acetaminophen 5-325) 5 Mg-325 Mg Tablet 1 TAB PO Q6H PRN for Pain, #60 TAB Continued Medications: Acyclovir (Acyclovir) 400 Mg Tab 400 MG PO BID for Mgmt Viral Infection, TAB [address] (Cymbalta DR) 20 Mg Capdr 20 MG PO DAILY, #30 CAP 0 Refills Gabapentin (Gabapentin) 600 Mg Tab 1200 MG PO TID, #90 TAB 0 Refills Gidnrlhtbsq-Zogqtczzfnh-Or Cho (Glucosamine Chondroitin & [id number] mg) 1 Tab Tab 2 TAB PO BID Lactobacillus Acidophilus (Probiotic) 1 Cap Cap 2 CAP PO TIDAC for Nutritional Supplement, #180 CAP 0 Refills Meperidine (Meperidine) 50 Mg Tab 50 MG PO Q3H PRN for HEADACHE, #15 TAB Omeprazole (Omeprazole) 20 Mg Cap 20 MG PO DAILY Tramadol (Ultram) 50 Mg Tab 50 MG PO Q6H PRN for headache and pain 3-5, #28 TAB [Vit Code Mens] () 2 TAB PO BID [Vitamin B -12 [place]] () 1000 MG PO DAILY Discontinued Medications: Ciprofloxacin (Cipro) 500 Mg Tab 500 MG PO BID for Infection, #20 TAB 0 Refills Lactobacillus Acidophilus (Lactinex) 1 Chew 1 TAB CHEW BID for Nutritional Supplement, #60 TAB 0 Refills Nitrofurantoin Macrocrystal (Nitrofurantoin Macrocrystal) 25 Mg Cap 25 MG PO QID for Infection, CAP 0 Refills Feliciano Sampson MD Apr 17, 2017 13:27
== END 2017-04-17 12:27 | disposition home or self-care (01) | DRG 872 ==
LOC: NEPE 17:30 → NEDA 19:05 → N07A 19:58
PROVIDERS: ADMIT Hospitalist; ATTEND Hospitalist
DX: A41.9 Sepsis, unspecified organism (principal); N17.9 Acute kidney failure, unspecified; N39.0 Urinary tract infection, site not specified; E11.9 Type 2 diabetes mellitus without complications; E87.6 Hypokalemia; R30.0 Dysuria; R51 Headache; K21.9 Gastro-esophageal reflux disease without esophagitis; Z85.51 Personal history of malignant neoplasm of bladder; Z86.73 Personal history of transient ischemic attack (TIA), and cerebral infarction without residual deficits; Z87.440 Personal history of urinary (tract) infections; Z87.891 Personal history of nicotine dependence; Z88.2 Allergy status to sulfonamides; Z98.1 Arthrodesis status
CPT/HCPCS: 51702; 71010; 80053; 81001; 83036; 83605; 83735; 84100; 84439; 84443; 85007; 85025; 85027; 85610; 85730; 87040; 87077; 87086; 87186; 96365; J0696; J2270; J2405; J7030